=== PATIENT | male | born 1945 | race Caucasian/White ===

== ENCOUNTER 2017-10-27 09:40 | Emergency (ER) | payer MEDICARE, OTHER, SELFPAY ==
[2017-10-27 09:57] VITALS: BP 142/88; PULSE 100; RESP 14; TEMP 36.6; O2SAT 98
[2017-10-27] MEDS: KETOROLAC 60 MG/2 ML VIAL IM (10:25)
[2017-10-27] MEDS: diazePAM 5 MG TABLET PO (10:26)
--- NOTE | 2017-10-27 10:31 | ED_ITS ---
HPI - Neck Pain/Injury General Chief Complaint: Neck Pain/Injury Stated Complaint: NECK OUT OF PLACE PAIN DOWN SHOULDER BLADES Time Seen by Provider: 10/27/17 09:46 Source: patient Mode of arrival: ambulatory Limitations: no limitations History of Present Illness HPI Narrative: Patient is a 72-year-old male who presents with neck pain. Been ongoing for last 2-3 days it started when he woke up mostly on his left side he got numbness and tingling down his left hand. He does have a history of cervical fusion 2,3,4,5 and 6. He denies any recent injury or fall. He has been taking oxycodone for pain which has not been helping. MD complaint: neck pain Related Data Home Medications Medication Instructions Recorded Confirmed albuterol sulfate [Ventolin HFA] 2 puff INH BID #0 05/02/16 10/27/17 fluticasone-salmeterol [Advair 1 puff INH BID #0 05/02/16 10/27/17 Diskus] insulin detemir U-100 [Levemir 50 unit SQ HS #0 05/02/16 10/27/17 FlexTouch U-100 Insuln] calcium carb,cit-mag cit,ox-D3 1 tab PO QDAY #0 05/06/16 10/27/17 multivitamin [Multiple Vitamins] 1 tab PO QDAY #0 05/06/16 10/27/17 omeprazole 40 mg PO QDAY #0 05/06/16 10/27/17 hydrochlorothiazide 25 mg PO QDAY #0 09/29/16 10/27/17 insulin aspart U-100 [Novolog 20 unit SQ TID #0 12/16/16 10/27/17 Flexpen U-100 Insulin] aspirin 1 tab PO DAILY 10/27/17 10/27/17 exenatide microspheres [Bydureon 1 dose SUB-Q QWEEK 10/27/17 10/27/17 BCise] levothyroxine [Synthroid] 1 tab PO DAILY 10/27/17 10/27/17 lisinopril 10 mg PO DAILY 10/27/17 10/27/17 losartan 50 mg PO DAILY 10/27/17 10/27/17 metformin 500 mg PO DAILY 10/27/17 10/27/17 ropinirole 0.25 mg PO BID 10/27/17 10/27/17 sucralfate 1 tab PO QID 10/27/17 10/27/17 Previous Rx's Medication Instructions Recorded oxycodone 5 mg PO Q4HP PRN #90 tab 01/01/17 diazepam [Valium] 5 mg PO Q8H PRN #14 tab 10/27/17 Allergies Allergy/AdvReac Type Severity Reaction Status Date / Time oxytetracycline Allergy Severe SWELLLING, Unverified 07/22/17 12:35 [From TERRAMYCIN] COULDN'T BREATHE, HOSPITALIZED Penicillins [PENICILLINS] Allergy Severe SWELLING, Unverified 07/22/17 12:35 COULDN'T BREATHE, HOSPITALIZED Cholinesterase Allergy Unknown STATES Unverified 07/22/17 12:35 Inhibitor(Carbamate) THAT HE [CHOLINESTERASE HAS A INHIBITOR(CARBAMATE)] CHOLINESTERASE DEFICIENCY oxycodone [OXYCODONE] AdvReac Intermediate Unverified 07/22/17 12:35 Review of Systems Review of Systems GENERAL: Denies chills, fatigue, malaise, fever, sweats, travel HEENT: Neck pain, see HPI RESPIRATORY: Denies dyspnea, cough, wheezing, hemoptysis, sputum. CARDIOVASCULAR: Denies chest pain, palpitations, orthopnea, edema GASTROINTESTINAL: Denies nausea, vomiting, abdominal pain, diarrhea, constipation, melena. : Denies dysuria, frequency, incontinence, hematuria, urinary retention, flank pain. MUSCULOSKELETAL: Denies weakness, joint pain, or bony pain SKIN: No rash, no erythema, no pruritus NEUROLOGIC: Numbness and tingling on left hand he PSYCHIATRIC: No concerning psychosocial issues. 12 point review of systems is negative except for those stated above and HPI PFSH Medical History Cervical vertebral fusion (Acute) Diabetes (Acute) Hypertension (Acute) Hypothyroid (Acute) Surgical History History of lumbar fusion (Acute) History of rotator cuff surgery (Acute) Social History Smoking Status: Former smoker Exam Initial Vital Signs Initial Vital Signs: Vital Signs Temperature 97.9 F 10/27/17 09:57 Pulse Rate 100 H 10/27/17 09:57 Respiratory Rate 14 10/27/17 09:57 Blood Pressure 142/88 H 10/27/17 09:57 Pulse Oximetry 98 10/27/17 09:57 GENERAL: Appears in pain HEENT: Head atraumatic,EOMI, pupils reactive, NECK: No vertebral tenderness no step-offs, significant decreased range of motion. CARDIOVASCULAR: Regular rate and rhythm without murmurs, rubs or gallops. RESPIRATORY: Breath sounds equal bilaterally, no wheezes rales or rhonchi. EXTREMITIES: Normal range of motion, no clubbing or edema. Neurovascularly intact NEUROLOGICAL: Alert and oriented x4.Normal gait and speech. Cranial nerves II through XII grossly intact. Neurovascularly intact, [employer] and game [employer] strength equal bilaterally SKIN: Warm, dry, no laceration, no petechiae, no rashes or lesions. Course Orders Ordered: Discontinued Medications Diazepam (Valium) 5 mg PO NOW ONE Stop: 10/27/17 10:09 Last Admin: 10/27/17 10:26 Dose: 5 mg Ketorolac Tromethamine (Toradol) 60 mg IM NOW ONE Stop: 10/27/17 10:09 Last Admin: 10/27/17 10:25 Dose: 60 mg Vital Signs - 8 hr 10/27/17 11:11 Pulse Rate 83 Blood Pressure [Left Arm] 109/73 Pulse Oximetry 94 MDM - Neck Pain/Injury MDM Narrative Medical decision making narrative: patient is feeling much better. He has no injury no trauma. I think this is musculoskeletal it is worse with movement. I discussed all findings with the patient. Education has been performed regarding treatment plan, diagnosis, warning signs and symptoms and all concerns have been addressed. Verbally agree with and understood all of the above. Discharge Plan Departure Patient Disposition: Home, Self-Care Clinical Impression: Acute cervical myofascial strain Discharge Date/Time: 10/27/17 11:16 Interventions: ED Discharge Assessment Last Done: 10/27/17 11:15 Instructions: DI for Cervical Muscle Strain Activity Restrictions/Additional Instructions: *You have been diagnosed with cervical strain *What to do: Heating pad 30 min at a time, increased movement as tolerated, at this time no imaging required if symptoms persist may require outpatient imaging *Continue to take medications as directed -Valium every 12 hr if needed for muscle spasm -ibuprofen 600 mg every 6-8 hours if needed for [id number] pain *Follow up with your primary care provider in 2-3 days *Return to ER if you should have increasing pain, numbness, tingling, weakness or any new, worsening or concerning symptoms Prescriptions: New diazepam [Valium] 5 mg tablet 5 mg PO Q8H PRN (Reason: muscle spasm) Qty: 14 RF: 0 No Action insulin detemir U-100 [Levemir FlexTouch U-100 Insuln] 100 UNIT/1 ML insulin pen 50 unit SQ HS Qty: 0 RF: 0 fluticasone-salmeterol [Advair Diskus] 250 MCG/50 MCG blister with device 1 puff INH BID Qty: 0 RF: 0 albuterol sulfate [Ventolin HFA] 90 MCG/PUFF HFA aerosol inhaler 2 puff INH BID Qty: 0 RF: 0 omeprazole 20 MG capsule,delayed release(DR/EC) 40 mg PO QDAY Qty: 0 RF: 0 multivitamin [Multiple Vitamins] 1 EACH tablet 1 tab PO QDAY Qty: 0 RF: 0 calcium carb,cit-mag cit,ox-D3 1 tab PO QDAY Qty: 0 RF: 0 hydrochlorothiazide 25 MG tablet 25 mg PO QDAY Qty: 0 RF: 0 insulin aspart U-100 [Novolog Flexpen U-100 Insulin] 100 UNIT/1 ML insulin pen 20 unit SQ TID Qty: 0 RF: 0 oxycodone 5 MG tablet 5 mg PO Q4HP PRNQty: 90 RF: 0 aspirin 81 mg tablet,delayed release (DR/EC) 1 tab PO DAILY RF: 0 lisinopril 10 mg tablet 10 mg PO DAILY RF: 0 levothyroxine [Synthroid] 150 mcg tablet 1 tab PO DAILY RF: 0 exenatide microspheres [Bydureon BCise] 2 mg/0.85 mL auto-injector 1 dose Sub-Q QWEEK RF: 0 losartan 50 mg tablet 50 mg PO DAILY RF: 0 sucralfate 1 gram tablet 1 tab PO QID RF: 0 ropinirole 0.25 mg tablet 0.25 mg PO BID RF: 0 metformin 500 mg tablet extended release 24 hr 500 mg PO DAILY RF: 0 Referrals: Cipriano Hammonds MD [Physician] - Varsha Hassan MD [Primary Care Provider] -
[2017-10-27 11:11] VITALS: BP 109/73; PULSE 83; O2SAT 94
== END 2017-10-27 11:16 | disposition home or self-care (01) ==
PROVIDERS: Emergency Provider Emergency Medicine; Family Provider Internal Medicine; PCP Internal Medicine
DX: S16.1XXA Strain of muscle, fascia and tendon at neck level, initial encounter (principal)
CPT/HCPCS: 96372; 99282; 99283; J1885

== ENCOUNTER → 2018-09-07 10:08 | Outpatient (CLI) | payer MEDICARE, OTHER, SELFPAY ==
--- NOTE | 2018-09-07 | DI.MRI.S_ITS ---
PROCEDURE: MR SHOULDER LT WO CON INDICATIONS: PAIN IN LEFT SHOULDER TECHNIQUE: Noncontrast oblique coronal T2 fast spin echo with fat saturation, oblique sagittal T1 spin echo and T2 fast spin echo with fat saturation, axial T1 spin echo and T2 fast spin echo with fat saturation through the shoulder. COMPARISON: None. FINDINGS: Image quality: Excellent. Rotator cuff: Small full thickness tear involving the junction of the supraspinatus and infraspinatus tendons fluid present measuring 6 mm in AP dimension as seen on image 22 series 10. There is also background supraspinatus and infraspinatus tendinopathy with partial thickness bursal and articular sided tear of the critical zone of both tendons. Mild subscapularis tendinopathy with partial-thickness articular sided tear seen on image 18 series 10. Teres minor appears intact. Bones and bursae: No bone marrow contusions or fractures. Moderate glenohumeral and acromioclavicular joint degeneration. The acromion demonstrates conventional anatomy, without an os acromiale. Trace glenohumeral joint effusion Capsule and soft tissues: Chronic appearing superior and posterior labral tear/degenerative fraying. The long head of the biceps tendon demonstrates normal location and morphology. The rotator interval appears normal, without fibrosis. The coracohumeral ligament is normal in thickness. IMPRESSION: Small full thickness tear at the footprint of the junction of the supraspinatus and infraspinatus tendons. Concomitant supraspinatus and infraspinatus tendinopathy with partial-thickness bursal and articular sided tear of the critical zone. Mild subscapularis tendinopathy with partial-thickness articular sided tear. Superior and posterior labral tear, likely chronic/degenerative fraying which may be age appropriate. Dictated by: Renan Marcelino M.D. on 09/07/2018 at 12:23 Approved by: Renan Marcelino M.D. on 09/07/2018 at 11:24
== END ==
PROVIDERS: Family Provider Orthopaedic Surgery; PCP Internal Medicine; Visit Provider Internal Medicine
DX: M25.512 Pain in left shoulder (principal); M75.112 Incomplete rotator cuff tear or rupture of left shoulder, not specified as traumatic; S43.492A Other sprain of left shoulder joint, initial encounter
CPT/HCPCS: 73221

== ENCOUNTER → 2019-09-09 12:44 | Outpatient (CLI) | payer MEDICARE, OTHER, SELFPAY ==
--- NOTE | 2019-09-09 | DI.MRI.S_ITS ---
PROCEDURE: MR LUMBAR SPINE WO/W CON INDICATIONS: HEAD PAIN, BLADDER INCONTINENCE TECHNIQUE: Noncontrast sagittal T1 spin echo and T2 fast spin echo, sagittal STIR, axial T1 and T2 fast spin echo through the lumbar spine. In cases with scoliosis, additional coronal T2 fast spin echo may be performed. After the administration of contrast, sagittal and axial T1 spin echo with fat saturation through the lumbar spine. COMPARISON: [facility], , L-SPINE WITHOUT CONTRAST, 05/05/2016, 6:56. [facility] [place], CR, XR LUMBAR SPINE 2 OR 3 VIEWS, 02/04/2018, 13:00. [facility] [place], [place], XR LUMBAR SPINE 2 OR 3 VIEWS, 07/17/2017, 11:14. FINDINGS: Image quality: Excellent. Alignment and curvature: There is normal bony alignment. Bones: Postsurgical changes compatible with L4-S1 PLIF. Marrow is of normal overall signal. No acute vertebral body compression fractures. No suspicious marrow enhancement. Spinal cord: Conus medullaris terminates at the T12-L1 disc level. Visualized spinal cord demonstrates normal signal, without suspicious enhancement. Paraspinous soft tissues: No paravertebral masses or abnormal enhancement. L1-L2: Normal appearance. L2-L3: Normal appearance. L3-L4: Loss of disc signal. Moderate, diffuse disc bulge. Moderate facet and moderate ligamentum flavum hypertrophy. Severe narrowing of the central canal with compression of the nerve roots of the cauda equina. Moderate right and mild left neural foraminal narrowing. Fissure noted in the left subarticular annulus. L4-L5: Status post fusion. Mild bilateral facet hypertrophy. No central stenosis. Mild bilateral neural foraminal narrowing. No neural compression. L5-S1: Status post fusion. Mild to moderate bilateral facet hypertrophy. No central stenosis. Moderate bilateral neural foraminal narrowing. No neural compression. IMPRESSION: 1. Status post L4-S1 PLIF. 2. Multilevel degenerative disease 3. Multilevel facet arthropathy. 4. Severe L3-L4 central canal stenosis with compression of the nerve roots of the cauda equina. 5. No significant neural foraminal narrowing. 6. No suspicious postcontrast enhancement. Dictated by: Charmaine Zheng MD, PhD on 09/09/2019 at 17:10 Approved by: Charmaine Zheng MD, PhD on 09/09/2019 at 17:15
--- NOTE | 2019-09-09 | DI.MRI.S_ITS ---
PROCEDURE: MR THORACIC SPINE WO CON INDICATIONS: HEAD PAIN, BLADDER INCONTINENCE TECHNIQUE: Noncontrast sagittal T1 spine echo and T2 fast spin echo, sagittal STIR, axial T1 and T2 fast spin echo through the thoracic spine. COMPARISON: None. FINDINGS: Image quality: Excellent. Alignment and Curvature: There is normal bony alignment. Bone Marrow: Marrow is of normal overall signal. No acute vertebral body compression fractures. Spinal Cord: Visualized spinal cord is normal in size and signal. Along the low cervical and thoracic spine there is no area of cord compression or disc herniation. Note is made of a mild degree of degenerative disc disease with disc height reduction and desiccation over the lower third of the thoracic spine, best seen at T9-T10 and T10-T11 but without significant spinal or foraminal stenosis. Paraspinous Soft Tissues: No inflammation or neoplasm found. Miscellaneous: On axial images, central canal and foramina appear widely patent at all scanned levels. IMPRESSION: Mild degenerative disc disease and facet osteoarthritis along the thoracic spine, visualize low cervical spinal cord and thoracic cord show no sign of intrinsic lesion. No disc herniation is found. Source of current symptomatology is not identified. Dictated by: Kd Mariee M.D. on 09/09/2019 at 14:55 Approved by: Kd Mariee M.D. on 09/09/2019 at 15:00
--- NOTE | 2019-09-09 | DI.MRI.S_ITS ---
PROCEDURE: MR HEAD/BRAIN WO/W CON INDICATIONS: HEAD PAIN,URINARY INCONTINENCE TECHNIQUE: Noncontrast axial T1 spin echo, axial T2 fast spin echo, sagittal and axial FLAIR, coronal T2 fast spin echo, axial gradient echo, axial diffusion and ADC through the brain. After the administration of contrast, axial and coronal 3D VIBE or T1 spin echo with fat saturation through the brain. COMPARISON: [facility], MR, BRAIN W&WO CONTRAST, 07/01/2016, 7:19. FINDINGS: Image quality: Excellent. CSF Spaces: Basal cisterns are patent. No extra-axial fluid collections. Ventricles are normal in size and shape. Brain: No midline shift. No intracranial bleeds or masses. No abnormal intracranial enhancement. The brainstem appears normal. Diffusion-weighted images demonstrate no acute ischemic insults. No chronic ischemic insults. Normal intravascular flow voids are present. Skull and face: Calvarial marrow is normal in signal. Orbits appear normal. Sinuses: Sinuses and mastoids appear clear. IMPRESSION: Moderate microvascular atherosclerotic changes in the deep white matter of each hemisphere, without evidence of source of new headache or urinary incontinence. Hydrocephalus is not seen. The study appears near equivalent to that present on MR scanning 07/01/16. Dictated by: Kd Mariee M.D. on 09/09/2019 at 14:53 Approved by: Kd Mariee M.D. on 09/09/2019 at 14:54
== END ==
PROVIDERS: Family Provider Orthopaedic Surgery; PCP Internal Medicine; Referring Provider Internal Medicine; Visit Provider Internal Medicine
DX: R51 Headache (principal); R32 Unspecified urinary incontinence; M51.34 Other intervertebral disc degeneration, thoracic region; M47.814 Spondylosis without myelopathy or radiculopathy, thoracic region; M51.36 Other intervertebral disc degeneration, lumbar region; M47.816 Spondylosis without myelopathy or radiculopathy, lumbar region; M47.817 Spondylosis without myelopathy or radiculopathy, lumbosacral region; M48.061 Spinal stenosis, lumbar region without neurogenic claudication; Z98.1 Arthrodesis status
CPT/HCPCS: 70553; 72146; 72158

== ENCOUNTER 2019-09-11 13:26 | Observation (INO) | payer MEDICARE, OTHER, SELFPAY ==
--- NOTE | 2019-09-11 | DI.ECHO.S_ITS ---
[facility] +---------+ : : [address] : : : : [id number] : : : : Phone: [phone]+ Echocardiogram Report + + :Name: DAWOOD ARRINGTON Study Date: 09/12/2019 Height: 71 in : :[facility] Weight: 183 lb : : Gender: Male BSA: 2.0 m2 : :: 1945 Age: 74 yrs BP: 145/79 mmHg: :Reason For Study: R/O Embolic focus : :Ordering Physician: Deepthi : :Hospitalist Performed By: Danni Burgess : :Referring: MALIHA TRAN : + + Interpretation Summary Normal left ventricle size with ejection fraction 60-65%. Mild aortic valve sclerosis. Mildly enlarged ascending aorta. Procedure: A two-dimensional transthoracic echocardiogram with color flow and Doppler was performed. The study quality was technically adequate. There is no prior echocardiogram noted for this patient. The patient was in normal sinus rhythm during the exam. The heart rate ranged between 68-74 bpm during the study. Left Ventricle: The left ventricle is normal in size and wall thickness. The ejection fraction is estimated to be 60-65%. Septal motion is consistent with conduction abnormality. There are no other obvious focal wall motion abnormalities. Right Ventricle: The right ventricle is normal in size and function. Atria: Both atria are normal in size. There is no Doppler evidence for an interatrial shunt. Mitral Valve: The mitral valve is normal in structure and function. There is trace mitral regurgitation. Aortic Valve: The aortic valve is trileaflet. The aortic valve opens well. There is mild aortic valve sclerosis. There is no aortic valve stenosis. No aortic regurgitation is present. Tricuspid Valve: The tricuspid valve is normal in structure and function. Pulmonary artery pressures cannot be estimated because of the lack of a measurable TR jet velocity but the IVC suggests a CVP of around 3 mmHg. There is trace tricuspid regurgitation. Pulmonic Valve: The pulmonic valve is normal in structure and function. There is trace pulmonic regurgitation. Great Vessels: The aortic root is normal size. The ascending aorta is mildly enlarged. The IVC is of normal diameter and collapses greater than 50% with a sniff. This suggests a low right atrial pressure of 3 mm Hg. Pericardium/ Pleura There is no pericardial effusion. There is no pleural effusion. MMode/2D Measurements & Calculations LVIDd: 4.8 cm LVOT diam: 2.2 cm LVIDs: 3.1 cm Ao root diam: 3.3 cm FS: 35.5 % asc Aorta Diam: 3.5 cm EPSS: 1.4 cm IVSd: 1.0 cm LVPWd: 0.73 cm LV bradford. diameter/BSA (cm/m^2): 2.4 LV sys. diameter/BSA (cm/m^2): 1.5 LA A2 area: 19.5 cm2 RA long axis: 4.6 cm LA A4 area: 15.4 cm2 RA area: 13.7 cm2 LA length (vol): 4.9 cm RA vol: 34.9 ml LA vol: 52.5 ml RA : 17.2 ml/m2 LA vol index: 25.8 ml/m2 IVC diam: 2.0 cm RVD1 (basal): 3.5 cm TAPSE: 1.8 cm Doppler Measurements & Calculations Ao V2 max: 154.8 cm/sec LVOT Max Kraig: 121.1 cm/sec Ao V2 mean: 97.5 cm/sec LV V1 max P.9 mmHg Ao max P.6 mmHg LV V1 VTI: 21.7 cm Ao mean P.4 mmHg ETTA(I,D): 2.9 cm2 Ao V2 VTI: 28.7 cm ETTA(V,D): 3.0 cm2 sev ratio: 0.76 ETTA indexed to BSA (cm^2/m^2): 1.4 MV E max kraig: 77.2 cm/sec PA V2 max: 92.0 cm/sec MV A max kraig: 122.3 cm/sec PA V2 mean: 61.4 cm/sec MV E/A: 0.63 PA mean P.8 mmHg Med Peak E' Kraig: 5.8 cm/sec E/E' med: 13.4 Lat Peak E' Kraig: 7.9 cm/sec E/E' lat: 9.8 E/e' average: 11.6 MV dec time: 0.18 sec SV(LVOT): 83.6 ml Electronically signed by: Radha Fraser on Reading Physician:09/12/2019 05:55 PM
--- NOTE | 2019-09-11 13:39 | DI.CT.S_ITS ---
PROCEDURE: CT HEAD/BRAIN WO CON INDICATIONS: dizziness, slurred speech x2 days TECHNIQUE: Noncontrast 4.5 mm thick angled axial sections acquired from the foramen magnum to the vertex, with coronal and sagittal reformats. For radiation dose reduction, the following was used: automated exposure control, adjustment of mA and/or kV according to patient size. COMPARISON: [facility], MR, MR HEAD/BRAIN WO/W CON, 09/09/2019, 13:25. FINDINGS: Image quality: Excellent. CSF spaces: Basal cisterns are patent. No extra-axial fluid collections. The ventricles are symmetric in size and shape. Brain: No intracranial bleeds or masses. There is cerebral volume loss for age, with resultant ventricular and sulcal prominence. There are mild periventricular and deep white matter chronic small vessel ischemic changes. There is intracranial internal carotid artery atherosclerosis. Skull and face: Calvarium and visualized facial bones appear intact, without suspicious lesions. Sinuses: Visualized sinuses and mastoids are clear. IMPRESSION: 1. No CT evidence of acute process. 2. Mild microvascular ischemic changes. Dictated by: Nuzhat Dave M.D. on 09/11/2019 at 14:44 Approved by: Nuzhat Dave M.D. on 09/11/2019 at 14:48
[2019-09-11 13:42] VITALS: BP 151/79; PULSE 71; RESP 16; TEMP 36.7; O2SAT 97; BMI 25.5
--- NOTE | 2019-09-11 13:47 | PC.NURSE ---
Patient has been having dizziness for couple weeks, seen here for MRI. Patient reports labile blood sugars and was taken off insulin by PCP. Patient reports patient has been having intermittent episodes of difficulty speaking. patient was speaking normally this morning and went out for his normal walk, at coffee stand he noticed he was having a hard time speaking. Arrives to ER with pressured speech. States he knows what he wants to say but has a hard time getting it out.
[2019-09-11 13:59] LABS: Add Manual Diff / Slide Review NO; Basophils Absolute Auto 100 /uL (0-100); Basophils Percent Auto 0.7 % (0-2); Eosinophils Absolute Auto 100 /uL (0-450); Eosinophils Percent Auto 1.4 % (2-4); Lymphocytes Absolute Auto 2100 /uL (1100-4500); Lymphocytes Percent Auto 20.3 % (25-40); Mean Corpuscular HGB Conc 34.2 % (30-36); Mean Corpuscular Hemoglobin 30.9 PG (26-34); Mean Corpuscular Volume 90.4 fL (80-100); Monocytes Absolute Auto 700 /uL (0-900); Monocytes Percent Auto 6.6 % (3-14); Neutrophils Absolute Auto 7300 /uL (1500-7000); Platelet Count 262 X10^3/uL (150-400); Red Cell Distribution Width 14.6 % (11.6-14.8); White Blood Cell Count 10.2 X10^3/uL (4.5-11.0)
[2019-09-11 14:08] LABS: Prothrombin Time 11.2 SECONDS (10.1-12.7)
[2019-09-11 14:11] LABS: BUN Creatinine Ratio 27.7 (6-22); Blood Urea Nitrogen 26 mg/dL (9-20); Calcium 10.4 mg/dL (8.4-10.2); Carbon Dioxide 30 mmol/L (22-32); Chloride 99 mmol/L (98-107); Estimated Glomerular Filt Rate > 60.0 mL/min (>60); Glucose 248 mg/dL (80-110); HEMOLYSIS < 15 (0-50); PTT Partial Thromboplastin Tim 30 SECONDS (26.4-36.2); Potassium 3.8 mmol/L (3.4-5.1); Sodium 138 mmol/L (137-145)
--- NOTE | 2019-09-11 14:34 | ED_ITS ---
HPI - Neuro Symptoms/Deficit General Chief Complaint: Neuro Symptoms/Deficit Stated Complaint: slurring speech/ disorieted/ problems w/ diabetes Time Seen by Provider: 09/11/19 13:26 Source: patient and family Mode of arrival: Ambulatory Limitations: no limitations History of Present Illness HPI Narrative: Daily smoker with history of hypertension, diabetes, hyperlipidemia, hypothyroid presents with a chief complaint of ongoing episodes of dizziness for weeks to months and difficulty with speech including slurring and otherwise trouble communicating for the past 2 days. He denies any focal neurologic symptoms otherwise such as blurred vision, extremity weakness, numbness or tingling. He denies any recent injury or trauma. He has been having episodes with difficulty controlling his glucose and as a result his insulin and other hyperglycemics have been cut out and he is expected to follow with his primary care provider in a few days. He recently had an MRI of his head for dizziness On Anticoagulants: No Related Data Home Medications Medication Instructions Recorded Confirmed albuterol sulfate [Ventolin HFA] 2 puff INH BID #0 05/02/16 09/11/19 fluticasone propion-salmeterol 1 puff INH BID #0 05/02/16 10/27/17 [Advair Diskus] insulin detemir U-100 [Levemir 50 unit SQ HS #0 05/02/16 10/27/17 FlexTouch U-100 Insuln] calcium carb,cit-mag cit,ox-D3 1 tab PO QDAY #0 05/06/16 10/27/17 omeprazole 40 mg PO QDAY #0 05/06/16 10/27/17 hydrochlorothiazide 25 mg PO QDAY #0 09/29/16 10/27/17 insulin aspart U-100 [Novolog 20 unit SQ TID #0 12/16/16 10/27/17 Flexpen U-100 Insulin] exenatide microspheres [Bydureon 1 dose SUB-Q QWEEK 10/27/17 10/27/17 BCise] levothyroxine [Synthroid] 1 tab PO DAILY 10/27/17 10/27/17 losartan 50 mg PO DAILY 10/27/17 10/27/17 metformin 500 mg PO DAILY 10/27/17 10/27/17 ropinirole 0.25 mg PO BID 10/27/17 10/27/17 sucralfate 1 tab PO QID 10/27/17 10/27/17 Allergies Allergy/AdvReac Type Severity Reaction Status Date / Time oxytetracycline Allergy Severe SWELLLING, Unverified 07/22/17 12:35 [From TERRAMYCIN] COULDN'T BREATHE, HOSPITALIZED Penicillins [PENICILLINS] Allergy Severe SWELLING, Unverified 07/22/17 12:35 COULDN'T BREATHE, HOSPITALIZED Cholinesterase Allergy Unknown STATES Unverified 07/22/17 12:35 Inhibitor(Carbamate) THAT HE [CHOLINESTERASE HAS A INHIBITOR(CARBAMATE)] CHOLINESTERASE DEFICIENCY oxycodone [OXYCODONE] AdvReac Intermediate Unverified 07/22/17 12:35 Review of Systems Constitutional Constitutional: Denies chills, Denies fatigue, Denies fever(s), Denies frequent falls, Denies lethargy and Reports weakness Eyes Eyes: Denies change in vision, Denies eye discharge, Denies irritation and Denies loss of vision ENT Ears, Nose, Mouth, and Throat: Denies change in voice, Denies dizziness, Denies neck pain, Denies sore throat and Denies throat swelling Cardiovascular Cardiovascular: Denies chest pain, Denies irregular heart rhythm, Denies lightheadedness, Denies palpitations, Denies dyspnea, Denies dyspnea on exertion and Denies orthopnea Respiratory Respiratory: Denies cough, Denies dyspnea, Denies dyspnea on exertion and Denies wheezing Gastrointestinal Gastrointestinal: Denies abdominal pain, Denies change in bowel habits, Denies diarrhea, Denies nausea and Denies vomiting Genitourinary Genitourinary: Denies hematuria, Denies flank pain, Reports urinary incontinence and Denies urinary urgency Musculoskeletal Musculoskeletal: Reports abnormal gait, Denies back pain, Denies muscle weakness, Denies neck pain, Denies numbness and Denies tingling Integumentary/Breasts Skin/Breast: Denies pruritus, Denies erythema, Denies rash and Denies wounds Neurologic Neurologic: Reports abnormal gait, Denies behavioral changes, Denies confusion, Denies dizziness, Denies frequent falls, Denies loss of vision, Denies numbness, Denies tingling and Reports weakness Psychiatric Psychiatric: Denies anxiety, Denies behavioral changes, Denies confusion, Denies depression, Denies homicidal ideation and Denies suicidal ideation Endocrine Endocrine: Denies fatigue, Denies flushing and Denies palpitations Hematologic/Lymphatic Hematologic/Lymphatic: Denies easy bruising Allergic/Immunologic Allergic/Immunologic: Denies urticaria, Denies throat swelling and Denies wheezing Patient History Medical History (Updated 09/11/19 @ 16:24 by Mohan Scott DO) Cervical vertebral fusion (Acute) Diabetes (Acute) Hypertension (Acute) Hypothyroid (Acute) Surgical History (Updated 10/27/17 @ 18:36 by Sharla Howard DO) History of lumbar fusion (Acute) History of rotator cuff surgery (Acute) Social History Smoking Status: Current every day smoker Smoking Status: Current every day smoker tobacco type: cigarettes Substance Use Type: does not use Exam Narrative Exam Narrative: GENERAL: [74] year old patient appears stated age. Well- nourished, well-developed patient, in mild distress. With stuttering, pressured speech HEAD: Atraumatic. Normocephalic. EYES: Pupils equal round and reactive. Extraocular motions intact. No scleral icterus. No injection or drainage. ENT: Nose without bleeding, purulent drainage. Throat without erythema, tonsillar hypertrophy or exudate. Airway patent. NECK: Trachea midline. Non tender CARDIOVASCULAR: Regular rate and rhythm without murmurs, gallops, or rubs. RESPIRATORY: Clear to auscultation. Breath sounds equal bilaterally. No wheezes, rales, or rhonchi. GASTROINTESTINAL: Abdomen soft, non-tender, nondistended. EXTREMITIES: No edema or joint tenderness. RECTAL: decreased rectal tone, decreased groin sensation BACK: Nontender without deformity or crepitance. No flank tenderness. NEURO: AOx3. B/L LE with severely decreased reflexes. 4/5 strength B/L SKIN: No rash or erythema of visible areas Initial Vital Signs Initial Vital Signs: Vital Signs Temperature 98.1 F 09/11/19 13:42 Pulse Rate 71 09/11/19 13:42 Respiratory Rate 16 09/11/19 13:42 Blood Pressure 151/79 H 09/11/19 13:42 Pulse Oximetry 97 09/11/19 13:42 Scores NIH Stroke Scale Level of Conciousness: Alert, keenly responsive Ask month/age: Answers both questions correctly. Open/close eyes, close hand: Performs both tasks correctly Best gaze horizontal: Normal Visual lara: No visual loss Facial palsy: Normal symetrical movement Left arm drift: No drift for full 10 sec Right arm drift: No drift for full 10 sec Left leg drift: Drifts down, not to bed Right leg drift: Drifts down, not to bed Limb ataxia: Absent Sensory on face/arms/legs: Mild to moderate sensory loss, can tell touch Best language: Mild to moderate, slurs some words Dysarthria: Normal Extinction or inattention: No abnormality Total NIH Stroke scale score: 4 Course Course Course Narrative: MRI was not only for dizziness but also headaches and leg weakness as well as trouble controlling his bladder for the past month or so Orders Ordered: ED Orders 09/11/19 13:30 Basic Metabolic Panel Stat Complete Blood Count AUTO DIFF Stat Partial Thromboplastin Time Stat Prothrombin Time INR Stat 09/11/19 13:39 CT head/brain wo con Stat 09/11/19 13:40 Urine Drug Screen, Rapid Stat EKG-12 Lead Stat 09/11/19 15:55 Urine Microscopic Stat Acetaminophen (Tylenol) 650 mg PO Q6HR PRN PRN Reason: Fever Atorvastatin Calcium (Lipitor) 80 mg PO BEDTIME PATIENCE Clopidogrel Bisulfate (Plavix) 75 mg PO DAILY PATIENCE Sodium Chloride (Normal Saline 0.9%) 1,000 mls @ 150 mls/hr IV CONT PATIENCE Last Admin: 09/11/19 16:02 Dose: 150 mls/hr Documented by: KENISHA Insulin Glargine (Lantus Solostar (Pen)) 40 unit SUBCUT BEDTIME PATIENCE Naloxone HCl (Narcan) 0.2 mg IV Q2MIN PRN PRN Reason: Opiate Reversal Consultations Consultation #1: discussion with Stroke at [facility]. Interesting presentation, outside therapeutic window. Recommends admission with classic stroke work up. LE symptoms likely unrelated Consultation #2: call to Dr. Sanchez (Ortho - spine). Not true cauda equina, not emergent surgical candidate. Recommends steroids and likely future laminectomy. Happy to see patient if consult desired Consultation #3: hospitalist happy to accept Vital Signs Vital signs: Vital Signs - 8 hr 09/11/19 13:42 09/11/19 16:00 09/11/19 16:08 Temperature 98.1 F Pulse Rate 71 70 Respiratory Rate 16 24 Blood Pressure 151/79 H Blood Pressure [Right Arm] 124/68 Pulse Oximetry 97 95 MDM - Neuro Symptoms/Deficit Lab Data Result diagrams: 09/11/19 13:30 09/11/19 13:30 Labs: Lab Results 09/11/19 09/11/19 09/11/19 Range/Units 13:30 13:30 13:30 WBC 10.2 (4.5-11.0) X10^3/uL RBC 5.20 (4.5-5.9) X10^6/uL Hgb 16.0 (13.5-17.5) g/dL Hct 47.0 (41-53) % MCV 90.4 (80-100) fL MCH 30.9 (26-34) PG MCHC 34.2 (30-36) % RDW 14.6 (11.6-14.8) % Plt Count 262 (150-400) X10^3/uL Neut % (Auto) 71.0 (50-75) % Lymph % (Auto) 20.3 L (25-40) % [place] % (Auto) 6.6 (3-14) % Eos % (Auto) 1.4 L (2-4) % Baso % (Auto) 0.7 (0-2) % Neut # (Auto) 7300 H (2698-0449) /uL Lymph # (Auto) 2100 (2963-3674) /uL [place] # (Auto) 700 (0-900) /uL Eos # (Auto) 100 (0-450) /uL Baso # (Auto) 100 (0-100) /uL PT 11.2 (10.1-12.7) SECONDS INR 1.0 (0.9-1.3) APTT 30 (26.4-36.2) SECONDS Sodium 138 (137-145) mmol/L Potassium 3.8 (3.4-5.1) mmol/L Chloride 99 (98-107) mmol/L Carbon Dioxide 30 (22-32) mmol/L BUN 26 H (9-20) mg/dL Creatinine 0.94 (0.66-1.25) mg/dL Estimated GFR > 60.0 (>60) mL/min BUN/Creatinine Ratio 27.7 H (6-22) Glucose 248 H (80-110) mg/dL Calcium 10.4 H (8.4-10.2) mg/dL Urine RBC (0-5/HPF) Urine WBC (0-5/HPF) Ur Squamous Epith Cells (0-5/HPF) Urine Bacteria (None) Ur Culture Indicated? 09/11/19 Range/Units 15:55 WBC (4.5-11.0) X10^3/uL RBC (4.5-5.9) X10^6/uL Hgb (13.5-17.5) g/dL Hct (41-53) % MCV (80-100) fL MCH (26-34) PG MCHC (30-36) % RDW (11.6-14.8) % Plt Count (150-400) X10^3/uL Neut % (Auto) (50-75) % Lymph % (Auto) (25-40) % [place] % (Auto) (3-14) % Eos % (Auto) (2-4) % Baso % (Auto) (0-2) % Neut # (Auto) (8675-3829) /uL Lymph # (Auto) (9255-6959) /uL [place] # (Auto) (0-900) /uL Eos # (Auto) (0-450) /uL Baso # (Auto) (0-100) /uL PT (10.1-12.7) SECONDS INR (0.9-1.3) APTT (26.4-36.2) SECONDS Sodium (137-145) mmol/L Potassium (3.4-5.1) mmol/L Chloride (98-107) mmol/L Carbon Dioxide (22-32) mmol/L BUN (9-20) mg/dL Creatinine (0.66-1.25) mg/dL Estimated GFR (>60) mL/min BUN/Creatinine Ratio (6-22) Glucose (80-110) mg/dL Calcium (8.4-10.2) mg/dL Urine RBC 0-1/hpf (0-5/HPF) Urine WBC 0-1/hpf (0-5/HPF) Ur Squamous Epith Cells 0-1 /hpf (0-5/HPF) Urine Bacteria None seen (None) Ur Culture Indicated? Cult not indicated Point of Care Testing Glucose POC 218 Urine Dip Bedside Urine Glucose 100 mg/dl Bedside Urine Bilirubin - Negative Bedside Urine Ketone - Negative Urine Specific [place] 1.020 Bedside Urine Occult Blood - Negative Bedside Urine pH 6.0 Bedside Urine Protein - Negative Bedside Urine Urobilinogen +/- 1mg Bedside Urine Nitrite - Negative Bedside Urine Leukocytes - Negative Esterase Imaging Data MRI of brain / T spine / L spine: Radiologist's Impression: Chart [facility] Diagn[employer] DATE TYPE STATUS AUTHOR Hx 09/11/19 13:39 09/09/19 00:00 Kd Mariee 09/09/19 00:00 Charmaine Zheng 09/09/19 00:00 Kd Mariee 09/07/18 00:00 RylandRenan 08/14/17 00:00 John Mathews Rodney A 74, M1 REG ER, Main ED R08 180.34cm 83.007kg BMI: 25.5kg/m? Neuro Symptoms/Deficit Search Chart No Data to Display SWELLLING, COULDN'T BREATHE, HOSPITALIZED SWELLING, COULDN'T BREATHE, HOSPITALIZED STATES THAT HE HAS A CHOLINESTERASE DEFICIENCY ONSET Today 13:42 Mak Ruano 74 M [address] [place] [address] Magnetic Resonance Report Signed Patient: Mak Ruano AMR#: [id number] : 1945cct:[id number] Age/Sex: 74 / MDate of Service: 09/09/19 Loc: MRI Accession Number: [id number] Procedure: MR head/brain wo/w con Ordering Provider: Dorothy Jackson PROCEDURE: MR HEAD/BRAIN WO/W CON INDICATIONS: HEAD PAIN,URINARY INCONTINENCE TECHNIQUE: Noncontrast axial T1 spin echo, axial T2 fast spin echo, sagittal and axial FLAIR, coronal T2 fast spin echo, axial gradient echo, axial diffusion and ADC through the brain. After the administration of contrast, axial and coronal 3D VIBE or T1 spin echo with fat saturation through the brain. COMPARISON: [facility], MR, BRAIN W&WO CONTRAST, 07/01/2016, 7:19. FINDINGS: Image quality: Excellent. CSF Spaces: Basal cisterns are patent. No extra-axial fluid collections. Ventricles are normal in size and shape. Brain: No midline shift. No intracranial bleeds or masses. No abnormal intracranial enhancement. The brainstem appears normal. Diffusion-weighted images demonstrate no acute ischemic insults. No chronic ischemic insults. Normal intravascular flow voids are present. Skull and face: Calvarial marrow is normal in signal. Orbits appear normal. Sinuses: Sinuses and mastoids appear clear. IMPRESSION: Moderate microvascular atherosclerotic changes in the deep white matter of each hemisphere, without evidence of source of new headache or urinary incontinence. Hydrocephalus is not seen. The study appears near equivalent to that present on MR scanning 07/01/16. Dictated by: Kd Mariee M.D. on 09/09/2019 at 14:53 Approved by: Kd Mariee M.D. on 09/09/2019 at 14:54 Chart Viewer Diagnostics DATE TYPE STATUS AUTHOR Hx 09/11/19 13:39 09/09/19 00:00 Kd Mariee 09/09/19 00:00 Charmaine Zheng 09/09/19 00:00 Kd Mariee 09/07/18 00:00 Renan Marcelino 08/14/17 00:00 MathewsJohn Rodney A 74, [facility] ER, Main ED R08 180.34cm 83.007kg BMI: 25.5kg/m? Neuro Symptoms/Deficit Search Chart No Data to Display SWELLLING, COULDN'T BREATHE, HOSPITALIZED SWELLING, COULDN'T BREATHE, HOSPITALIZED STATES THAT HE HAS A CHOLINESTERASE DEFICIENCY ONSET Today 13:42 Mak Ruano 74 M [address] [place] [address] Magnetic Resonance Report Signed Patient: Mak Ruano AMR#: [id number] : 1945cct:[id number] Age/Sex: 74 / MDate of Service: 09/09/19 Loc: MRI Accession Number: [id number] Procedure: MR thoracic spine wo con Ordering Provider: Dorothy Jackson PROCEDURE: MR THORACIC SPINE WO CON INDICATIONS: HEAD PAIN, BLADDER INCONTINENCE TECHNIQUE: Noncontrast sagittal T1 spine echo and T2 fast spin echo, sagittal STIR, axial T1 and T2 fast spin echo through the thoracic spine. COMPARISON: None. FINDINGS: Image quality: Excellent. Alignment and Curvature: There is normal bony alignment. Bone Marrow: Marrow is of normal overall signal. No acute vertebral body compression fractures. Spinal Cord: Visualized spinal cord is normal in size and signal. Along the low cervical and thoracic spine there is no area of cord compression or disc herniation. Note is made of a mild degree of degenerative disc disease with disc height reduction and desiccation over the lower third of the thoracic spine, best seen at T9-T10 and T10-T11 but without significant spinal or foraminal stenosis. Paraspinous Soft Tissues: No inflammation or neoplasm found. Miscellaneous: On axial images, central canal and foramina appear widely patent at all scanned levels. IMPRESSION: Mild degenerative disc disease and facet osteoarthritis along the thoracic spine, visualize low cervical spinal cord and thoracic cord show no sign of intrinsic lesion. No disc herniation is found. Source of current symptomatology is not identified. Dictated by: Kd Mariee M.D. on 09/09/2019 at 14:55 Approved by: Kd Mariee M.D. on 09/09/2019 at 15:[address] [address] Magnetic Resonance Report Signed Patient: Mak Ruano AMR#: [id number] : 1945cct:[id number] Age/Sex: 74 / MDate of Service: 09/09/19 Loc: MRI Accession Number: [id number] Procedure: MR lumbar spine wo/w con Ordering Provider: Dorothy Jackson PROCEDURE: MR LUMBAR SPINE WO/W CON INDICATIONS: HEAD PAIN, BLADDER INCONTINENCE TECHNIQUE: Noncontrast sagittal T1 spin echo and T2 fast spin echo, sagittal STIR, axial T1 and T2 fast spin echo through the lumbar spine. In cases with scoliosis, additional coronal T2 fast spin echo may be performed. After the administration of contrast, sagittal and axial T1 spin echo with fat saturation through the lumbar spine. COMPARISON: [facility], , L-SPINE WITHOUT CONTRAST, 05/05/2016, 6:56. [facility], CR, XR LUMBAR SPINE 2 OR 3 VIEWS, 02/04/2018, 13:00. [facility], CR, XR LUMBAR SPINE 2 OR 3 VIEWS, 07/17/2017, 11:14. FINDINGS: Image quality: Excellent. Alignment and curvature: There is normal bony alignment. Bones: Postsurgical changes compatible with L4-S1 PLIF. Marrow is of normal overall signal. No acute vertebral body compression fractures. No suspicious marrow enhancement. Spinal cord: Conus medullaris terminates at the T12-L1 disc level. Visualized spinal cord demonstrates normal signal, without suspicious enhancement. Paraspinous soft tissues: No paravertebral masses or abnormal enhancement. L1-L2: Normal appearance. L2-L3: Normal appearance. L3-L4: Loss of disc signal. Moderate, diffuse disc bulge. Moderate facet and moderate ligamentum flavum hypertrophy. Severe narrowing of the central canal with compression of the nerve roots of the cauda equina. Moderate right and mild left neural foraminal narrowing. Fissure noted in the left subarticular annulus. L4-L5: Status post fusion. Mild bilateral facet hypertrophy. No central stenosis. Mild bilateral neural foraminal narrowing. No neural compression. L5-S1: Status post fusion. Mild to moderate bilateral facet hypertrophy. No central stenosis. Moderate bilateral neural foraminal narrowing. No neural compression. IMPRESSION: 1. Status post L4-S1 PLIF. 2. Multilevel degenerative disease 3. Multilevel facet arthropathy. 4. Severe L3-L4 central canal stenosis with compression of the nerve roots of the cauda equina. 5. No significant neural foraminal narrowing. 6. No suspicious postcontrast enhancement. Dictated by: Charmaine Zheng MD, PhD on 09/09/2019 at 17:10 Approved by: Charmaine Zheng MD, PhD on 09/09/2019 at 17:15 Discharge Plan Departure Patient Disposition: Admitted as Observation Clinical Impression: Cerebrovascular accident Qualifiers: CVA mechanism: unspecified Qualified Code(s): I63.9 - Cerebral infarction, unspecified Admit Date/Time: 09/11/19 17:47 Admit Provider: Honey Melgoza
[2019-09-11 16:00] VITALS: PULSE 70; RESP 24; O2SAT 95
[2019-09-11] MEDS: SODIUM CHLORIDE 0.9% 1,000 ML 150 ML IV (16:02)
[2019-09-11 16:08] VITALS: BP 124/68
[2019-09-11 16:08] LABS: Bacteria Urine None Seen
[2019-09-11 16:22] LABS: Culture Indicated Urine Cult Not Indicated; RBC Urine 0-1/HPF (0-5/HPF); Squamous Epithelial Cell Urine 0-1 /HPF (0-5/HPF); WBC Urine 0-1/HPF (0-5/HPF)
--- NOTE | 2019-09-11 17:50 | DI.MRI.S_ITS ---
PROCEDURE: MR STROKE Pre- and post-contrast brain MRI, non-contrast brain MR angiogram, pre- and postcontrast neck MR angiogram INDICATIONS: r/o stroke TECHNIQUE: Brain: Noncontrast axial T1 spin echo, axial T2 fast spin echo, sagittal and axial FLAIR, coronal T2 fast spin echo, axial gradient echo, axial diffusion and ADC through the brain. After the administration of contrast, axial 3D VIBE of the cranial vasculature and brain. Brain MRA: Non-contrast 3-D time of flight MR angiogram, with multiple gyuoztz-mtlyhlarf-apgtlvbihq (MIP) reformats performed. Neck MRA: Axial and sagittal TruFISP through the neck. Coronal dynamic MR angiogram during administration of contrast in the arterial and venous phases, with 3-dimenstional zmlxndi-cxhakvver-jicxidhnmf (MIP) reformats constructed from subtraction images. COMPARISON: [facility], MR, ANGIO HEAD WITHOUT CONTRAST, 07/01/2016, 7:09. [facility], MR, BRAIN W&WO CONTRAST, 07/01/2016, 7:19. [facility], CT, CT HEAD/BRAIN WO CON, 09/11/2019, 13:47. FINDINGS: Image quality: Excellent. BRAIN: CSF spaces: Ventricles are normal in size and shape. Basal cisterns are patent. No extra-axial fluid collections. Brain: No intracranial bleeds or mass effects. Moderate diffuse cerebral volume loss. Mild to moderate degree of patchy high FLAIR signal within the periventricular and subcortical white matter, which has progressed compared to prior examination. [place]-white matter interface is normal. Diffusion weighted images show no acute ischemic insults. Brainstem appears normal. Normal intravascular flow voids are present. No abnormal intracranial enhancement. Skull and face: Calvarial marrow signal is normal. Orbits appear normal. Sinuses: Small amount of bilateral mastoid fluid. Mild mucosal thickening within the bilateral ethmoid air cells. BRAIN MR ANGIOGRAM: Anterior circulation: Intracranial internal carotid arteries are normal in size and enhancement. The flow within the paired anterior cerebral arteries is normal and symmetric. The flow within the middle cerebral arteries is normal and symmetric. The anterior communicating artery is seen. No stenoses, occlusions, or aneurysms. Posterior circulation: The left vertebral artery appears to terminate in a posterior inferior cerebellar artery. Right vertebral artery is patent. Basilar artery is patent. The flow within the posterior cerebral arteries is normal and symmetric. No stenoses, occlusions, or aneurysms. 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 Thoracic aortic arch is widely patent as visualized. There is conventional branching anatomy. Number artery is suboptimally visualized but grossly patent. Right subclavian artery is abruptly visualized at its origin, but is grossly patent as visualized. Right vertebral artery is dominant and patent. Right common, internal, and external carotid arteries are patent. Left common, internal, and axial carotid arteries are patent. Left subclavian artery is patent. Left vertebral artery origin is not well-seen, but is otherwise patent, and terminates in a posterior inferior cerebellar artery. IMPRESSION: BRAIN MRI: 1. Volume loss and small vessel ischemic disease. 2. No acute process. No recent infarct. 3. Sinus and mastoid disease. BRAIN MR ANGIOGRAM: Negative cerebral MR angiography. NECK MR ANGIOGRAM: 1. No internal carotid stenosis bilaterally. 2. Patent right vertebral artery. Suboptimally visualized left vertebral artery origin, which is otherwise patent. 3. Suboptimally visualized right subclavian and innominate arteries as described above. Dictated by: Lior Jeong M.D. on 09/12/2019 at 11:21 Approved by: Lior Jeong M.D. on 09/12/2019 at 11:27
[2019-09-11 18:30] VITALS: BP 137/85; PULSE 71; RESP 19; TEMP 36.9; O2SAT 97
--- NOTE | 2019-09-11 18:33 | P.CONS_ITS ---
History of Present Illness Consult details Date Patient Seen: 09/11/19 Time Patient Seen: 19:05 Chief complaint: slurring speech/ disorieted/ problems w/ diabetes Reason for consult: Spinal stenosis Requesting provider: Honey Melgoza Narrative: 74-year-old male complaining of pain in the back with radiation going down his legs. He has a history of a C4-[address] Hammonds as well as a revision L4 through S1 posterior instrumented fusion in 2017. He did well after these. However, over the past month he has been having increasing pain in his back that radiates out to both sides to the buttocks. He will get pain running down the backs of both of his legs. The pain also runs all the way up is back to his neck. He finally came in today as the pain was getting severe. The back pain is worse than the leg symptoms. He thinks the legs do not hurt as much as they also have been getting numb. He denies weakness in the legs. He does have a history of peripheral neuropathy in both of his feet. He has also been having difficulty with urinary control over the past 3 weeks. He also came in today's he has been having slurring of speech difficulty finding words for the past 2 days. He has been dizzy for the past several months. He has been having difficulty with his diabetes management and recently has been cutting back on his medications as he has been hypoglycemic repeatedly sometimes with glucose of 30. Meds Home Medications and Allergies Home Medications Medication Instructions Recorded Confirmed Type albuterol sulfate [Ventolin HFA] 2 puff INH BID #0 05/02/16 09/11/19 History fluticasone propion-salmeterol 1 puff INH BID #0 05/02/16 09/11/19 History [Advair Diskus] insulin detemir U-100 [Levemir 50 unit SQ HS #0 05/02/16 10/27/17 History FlexTouch U-100 Insuln] calcium carb,cit-mag cit,ox-D3 1 tab PO QDAY #0 05/06/16 10/27/17 History omeprazole 40 mg PO QDAY #0 05/06/16 09/11/19 History hydrochlorothiazide 25 mg PO QDAY #0 09/29/16 10/27/17 History insulin aspart U-100 [Novolog 20 unit SQ TID #0 12/16/16 10/27/17 History Flexpen U-100 Insulin] exenatide microspheres [Bydureon 1 dose SUB-Q QWEEK 10/27/17 10/27/17 History BCise] levothyroxine [Synthroid] 1 tab PO DAILY 10/27/17 09/11/19 History losartan 50 mg PO DAILY 10/27/17 09/11/19 History metformin 500 mg PO DAILY 10/27/17 09/11/19 History ropinirole 0.25 mg PO BID 10/27/17 10/27/17 History sucralfate 1 tab PO QID 10/27/17 10/27/17 History Allergies Allergy/AdvReac Type Severity Reaction Status Date / Time oxytetracycline Allergy Severe SWELLLING, Unverified 07/22/17 12:35 [From TERRAMYCIN] COULDN'T BREATHE, HOSPITALIZED Penicillins [PENICILLINS] Allergy Severe SWELLING, Unverified 07/22/17 12:35 COULDN'T BREATHE, HOSPITALIZED Cholinesterase Allergy Unknown STATES Unverified 07/22/17 12:35 Inhibitor(Carbamate) THAT HE [CHOLINESTERASE HAS A INHIBITOR(CARBAMATE)] CHOLINESTERASE DEFICIENCY oxycodone [OXYCODONE] AdvReac Intermediate Unverified 07/22/17 12:35 Review of Systems Constitutional Constitutional: Denies chills and Denies fever(s) Eyes Eyes: Denies blurry vision and Denies loss of vision ENT Ears, Nose, Mouth, and Throat: Yes dizziness Cardiovascular Cardiovascular: Denies chest pain and Denies rapid, pounding, or irregular heartbeat Respiratory Respiratory: Denies cough and Denies wheezing Gastrointestinal Gastrointestinal: Denies abdominal pain Genitourinary Genitourinary: Reports urinary incontinence Integumentary/Breasts Skin/Breast: Denies wounds Neurologic Neurologic: Denies confusion, Reports dizziness, Reports lack of coordination, Denies loss of vision, Denies other visual disturbances, Reports radicular pain and Reports paresthesias Psychiatric Psychiatric: Denies confusion Endocrine Endocrine: Denies palpitations Hematologic/Lymphatic Hematologic/Lymphatic: Denies easy bleeding Allergic/Immunologic Allergic/Immunologic: Denies wheezing Exam Vital Signs (past 8 hours): - 09/11/19 13:42 09/11/19 16:00 09/11/19 16:08 Temperature 98.1 F Pulse Rate 71 70 Respiratory Rate 16 24 Blood Pressure 151/79 H Blood Pressure [Right Arm] 124/68 Pulse Oximetry 97 95 Oxygen Delivery Method Room Air Narrative Exam Narrative: Some stuttering speech and word finding Const Orientation: alert and oriented x3 Resp Auscultation: clear to auscultation bilaterally Cardio Rate: regular rate Rhythm: regular rhythm Back/Spine/Pelvis Other: Sit up easily in bed without difficulty. Well healed lumbar incisions. Tender across the bilateral lower lumbar paraspinals to the bilateral gluteals. Some tenderness in the midthoracic and lower cervical paraspinals as well. 5/5 motor 1+ reflexes, negative straight leg raising both lower extremities, 1-2 beats clonus. Intact sensation both lower extremities but decreased globally through the feet. 1+ dorsalis pedis pulses. Objective Imaging Thoracic MRI: My impression: From 09/09/2019 shows ACDF from C4 through 6. Spinal cord tapers off and cauda equina at T12. No evidence of any neural compression. Lumbar MRI: My impression: From 09/09/2019 shows instrumented fusion from L4 through S1. L3-4 severe central stenosis from facet arthropathy. L4-5 open central laminectomy and neural foramen. L5-S1 open central laminectomy, mild to moderate bilateral foraminal narrowing. Cauda equina terminates at T12 Labs Result Diagrams: 09/11/19 13:30 09/11/19 13:30 Labs: Laboratory Results - last 24 hr 09/11/19 09/11/19 09/11/19 13:30 13:30 13:30 WBC 10.2 RBC 5.20 Hgb 16.0 Hct 47.0 MCV 90.4 MCH 30.9 MCHC 34.2 RDW 14.6 Plt Count 262 Neut % (Auto) 71.0 Lymph % (Auto) 20.3 L [place] % (Auto) 6.6 Eos % (Auto) 1.4 L Baso % (Auto) 0.7 Neut # (Auto) 7300 H Lymph # (Auto) 2100 [place] # (Auto) 700 Eos # (Auto) 100 Baso # (Auto) 100 PT 11.2 INR 1.0 APTT 30 Sodium 138 Potassium 3.8 Chloride 99 Carbon Dioxide 30 BUN 26 H Creatinine 0.94 Estimated GFR > 60.0 BUN/Creatinine Ratio 27.7 H Glucose 248 H Calcium 10.4 H Urine RBC Urine WBC Ur Squamous Epith Cells Urine Bacteria Ur Culture Indicated? 09/11/19 15:55 WBC RBC Hgb Hct MCV MCH MCHC RDW Plt Count Neut % (Auto) Lymph % (Auto) [place] % (Auto) Eos % (Auto) Baso % (Auto) Neut # (Auto) Lymph # (Auto) [place] # (Auto) Eos # (Auto) Baso # (Auto) PT INR APTT Sodium Potassium Chloride Carbon Dioxide BUN Creatinine Estimated GFR BUN/Creatinine Ratio Glucose Calcium Urine RBC 0-1/hpf Urine WBC 0-1/hpf Ur Squamous Epith Cells 0-1 /hpf Urine Bacteria None seen Ur Culture Indicated? Cult not indicated Assessment & Plan Assessment & Plan narrative: We discussed the multifactorial nature back pain to include muscular, degenerative, neurologic. His increasing leg symptoms as well as bladder changes could certainly be related to his adjacent spinal stenosis at L3-4. However, this is well below the cauda equina and spinal cord, and these are not acute findings, they have been going on for several weeks. This is not a surgical emergency but I do think he is looking at another laminectomy with possible fusion at L3-4. I recommend IV steroids for pain control and I have discussed this with Dr. Melgoza. The main concern right now is his neurologic symptoms with possible stroke symptoms going on for the past several days. He has been admitted for workup of this. I will continue to follow him in the hospital for now.
[2019-09-11 19:10] VITALS: BMI 25.4
[2019-09-11 19:19] LABS: UR Morphine/Opiate cutoff 300 Negative (Negative); Ur Creatinine 20 (Normal); Ur Specific Gravity 1.025 (Normal); Urine Amphetamines Negative (Negative); Urine Barbiturates Negative (Negative); Urine Benzodiazepines Negative (Negative); Urine Cocaine Negative (Negative); Urine MDMA Negative (Negative); Urine Methadone Negative (Negative); Urine Methamphetamines Negative (Negative); Urine Oxycodone Negative (Negative); Urine Phencyclidine Negative (Negative); Urine Tetrahydrocannabinol Positive (Negative); Urine Tricyclic Antidepressant Negative (Negative); Urine pH 7 (Normal)
--- NOTE | 2019-09-11 19:20 | PM.HP.1 ---
History of Present Illness History of Present Illness Date Patient Seen: 09/11/19 Chief complaint: slurring speech/ disorieted/ problems w/ diabetes Narrative: The patient is a 74-year-old male with a history of hypertension, type 2 diabetes,hyperlipidemia, hypothyroidism, COPD who is a smoker who presents to the hospital for 3 days of difficulty with his speech. The patient was seen by his primary care physician at [place]. He was noted to have difficulty getting words out. At times he could not speak at all and at other times he would be able to speak. He notes that his symptoms come and go. He has had minimal blurred vision which is old. He has had chronic weakness of his upper and lower extremities which is also old. He has chronic diabetic neuropathy of his feet, and also reports some numbness in his lower extremities. Patient was also complaining of dizziness which he has had for several months. He had an outpatient MRI which was essentially negative. Patient presented to the hospital for evaluation. His NIH score in the emergency department was 4. He is also underwent MRI of the lumbar spine which confirmed spinal stenosis at L4-L5 area. There was some concern about cauda equina syndrome as well. Patient does report some incontinence to urine. But all other review of systems is negative. He is admitted to the hospital at this time for evaluation of speech abnormalities. Patient also reports low blood sugars and have been adjusting his insulin downward. Most recently he was on 30 units of Lantus at night. Patient History Medical History (Updated 09/11/19 @ 19:23 by Honey Melgoza MD) Cervical stenosis of spinal canal (Acute) Cervical vertebral fusion (Acute) Diabetes (Acute) Hypertension (Acute) Hypothyroid (Acute) Stable angina (Acute) Surgical History History of lumbar fusion (Acute) History of rotator cuff surgery (Acute) Family & Social History Family History (Updated 09/11/19 @ 19:24 by Honey Melgoza MD) Mother Metastatic cancer Father Cancer Brother Type 1 diabetes Safety & Behavioral: Feels Safe in Current Yes Environment Been Physically Hurt or No Threatened By a Person Tobacco & Substance use: Smoking Status Current every day smoker Substance Use Type does not use Meds Home Medications and Allergies Home Medications Medication Instructions Recorded Confirmed Type albuterol sulfate [Ventolin HFA] 2 puff INH BID #0 05/02/16 09/11/19 History fluticasone propion-salmeterol 1 puff INH BID #0 05/02/16 09/11/19 History [Advair Diskus] insulin detemir U-100 [Levemir 50 unit SQ HS #0 05/02/16 10/27/17 History FlexTouch U-100 Insuln] calcium carb,cit-mag cit,ox-D3 1 tab PO QDAY #0 05/06/16 10/27/17 History omeprazole 40 mg PO QDAY #0 05/06/16 09/11/19 History hydrochlorothiazide 25 mg PO QDAY #0 09/29/16 10/27/17 History insulin aspart U-100 [Novolog 20 unit SQ TID #0 12/16/16 10/27/17 History Flexpen U-100 Insulin] exenatide microspheres [Bydureon 1 dose SUB-Q QWEEK 10/27/17 10/27/17 History BCise] levothyroxine [Synthroid] 1 tab PO DAILY 10/27/17 09/11/19 History losartan 50 mg PO DAILY 10/27/17 09/11/19 History metformin 500 mg PO DAILY 10/27/17 09/11/19 History ropinirole 0.25 mg PO BID 10/27/17 10/27/17 History sucralfate 1 tab PO QID 10/27/17 10/27/17 History Allergies Allergy/AdvReac Type Severity Reaction Status Date / Time oxytetracycline Allergy Severe SWELLLING, Unverified 07/22/17 12:35 [From TERRAMYCIN] COULDN'T BREATHE, HOSPITALIZED Penicillins [PENICILLINS] Allergy Severe SWELLING, Unverified 07/22/17 12:35 COULDN'T BREATHE, HOSPITALIZED Cholinesterase Allergy Unknown STATES Unverified 07/22/17 12:35 Inhibitor(Carbamate) THAT HE [CHOLINESTERASE HAS A INHIBITOR(CARBAMATE)] CHOLINESTERASE DEFICIENCY oxycodone [OXYCODONE] AdvReac Intermediate Unverified 07/22/17 12:35 Review of Systems Review of Systems ROS: Yes All systems reviewed with the patient and are negative except as otherwise documented Exam Vital Signs (past 8 hours): - 09/11/19 13:42 09/11/19 16:00 09/11/19 16:08 Temperature 98.1 F Pulse Rate 71 70 Respiratory Rate 16 24 Blood Pressure 151/79 H Blood Pressure [Right Arm] 124/68 Pulse Oximetry 97 95 09/11/19 18:30 Temperature 98.4 F Pulse Rate 71 Respiratory Rate 19 Blood Pressure 137/85 Blood Pressure [Right Arm] Pulse Oximetry 97 Oxygen Delivery Method Room Air Oxygen Flow Rate 0 Narrative Exam Narrative: pleasant male in no obvious distress HEENT: Normocephalic atraumatic, sclerae anicteric, extraocular muscles are intact, oropharynx reveals moist mucous membranes, neck is supple without adenopathy thyromegaly or carotid bruits Lungs: Clear to auscultation cardiac exam: Regular rate and rhythm normal S1-S2 abdomen: Soft nontender nondistended extremities: No edema neuro exam: Cranial nerves 2-12 are intact, strength is symmetric and equal, sensation is grossly intact reflexes are brisk and equal, speech is halting, he does have some expressive aphasia. NIH SS score confirmed at 4 Objective Labs Result Diagrams: 09/11/19 13:30 09/11/19 13:30 Labs: Laboratory Results - last 24 hr 09/11/19 09/11/19 09/11/19 13:30 13:30 13:30 WBC 10.2 RBC 5.20 Hgb 16.0 Hct 47.0 MCV 90.4 MCH 30.9 MCHC 34.2 RDW 14.6 Plt Count 262 Neut % (Auto) 71.0 Lymph % (Auto) 20.3 L [place] % (Auto) 6.6 Eos % (Auto) 1.4 L Baso % (Auto) 0.7 Neut # (Auto) 7300 H Lymph # (Auto) 2100 [place] # (Auto) 700 Eos # (Auto) 100 Baso # (Auto) 100 PT 11.2 INR 1.0 APTT 30 Sodium 138 Potassium 3.8 Chloride 99 Carbon Dioxide 30 BUN 26 H Creatinine 0.94 Estimated GFR > 60.0 BUN/Creatinine Ratio 27.7 H Glucose 248 H Calcium 10.4 H Urine RBC Urine WBC Ur Squamous Epith Cells Urine Bacteria Ur Culture Indicated? U Opiates 300ng/mL cut Ur Oxycodone Screen Urine Methadone Screen Ur Barbiturates Screen U Tricyclic Antidepress Ur Phencyclidine Scrn Ur Amphetamines Screen U Methamphetamines Scrn Ur MDMA Scrn (Ecstasy) U Benzodiazepines Scrn Urine Cocaine Screen U Marijuana (THC) Screen 09/11/19 09/11/19 15:55 19:10 WBC RBC Hgb Hct MCV MCH MCHC RDW Plt Count Neut % (Auto) Lymph % (Auto) [place] % (Auto) Eos % (Auto) Baso % (Auto) Neut # (Auto) Lymph # (Auto) [place] # (Auto) Eos # (Auto) Baso # (Auto) PT INR APTT Sodium Potassium Chloride Carbon Dioxide BUN Creatinine Estimated GFR BUN/Creatinine Ratio Glucose Calcium Urine RBC 0-1/hpf Urine WBC 0-1/hpf Ur Squamous Epith Cells 0-1 /hpf Urine Bacteria None seen Ur Culture Indicated? Cult not indicated U Opiates 300ng/mL cut Negative Ur Oxycodone Screen Negative Urine Methadone Screen Negative Ur Barbiturates Screen Negative U Tricyclic Antidepress Negative Ur Phencyclidine Scrn Negative Ur Amphetamines Screen Negative U Methamphetamines Scrn Negative Ur MDMA Scrn (Ecstasy) Negative U Benzodiazepines Scrn Negative Urine Cocaine Screen Negative U Marijuana (THC) Screen Positive H Assessment & Plan Assessment & Plan narrative: Impression 1. 74-year-old male with multiple risk factors admitted to the hospital for expressive aphasia - head CT negative for acute stroke - head MRI will be obtained with stroke protocol tomorrow - echo obtained in the ER will review results tomorrow - will start Plavix 75 mg per day, obtain fasting lipid profile, start atorvastatin 80 mg per day - will obtain PT OT and speech consultations 2. lumbar stenosis - question cauda equina syndrome, per Dr. Sanchez no urgent surgical intervention - patient to start steroids for 2 days in addition to pain medication - outpatient evaluation for for definitive surgical treatment once his stroke workup has been completed 3. type 2 diabetes - patient with decreasing blood sugars. Will resume Lantus at 40 units given his needs for steroids. Will hold metformin while in the hospital 4. hypertension - continue losartan, hold hydrochlorothiazide in the hospital 5. hypothyroidism - will check TSH - continue L-thyroxine 6. restless leg syndrome - continue ropinrole 7. GERD continue omeprazole and sucralfate 8. COPD - continues inhalers - no evidence of acute exacerbation 9. nicotine dependence - patient was offered a nicotine patch which he declined patient will be placed on Lovenox for DVT prophylaxis. He will be says admitted under observation. Patient indicates he is DNR and will note that on his record accordingly
[2019-09-11 20:15] LABS: Cholesterol 194 mg/dL (140-199); HDL Cholesterol 63 mg/dL (40-60); LDL Cholesterol Calculated 82 mg/dL (<100); Triglycerides 243 mg/dL (35-150)
[2019-09-11 20:17] LABS: Hemoglobin A1C% w Est Avg Glu 7.2 % (4.0-6.0)
[2019-09-11] MEDS: DEXAMETHASONE 10 MG/ML VIAL IV (20:18)
[2019-09-11 20:32] VITALS: PULSE 76; RESP 16; O2SAT 96
[2019-09-11 21:28] VITALS: BP 145/79; PULSE 70; RESP 24; TEMP 36.4; O2SAT 93
[2019-09-11] MEDS: ATORVASTATIN 20 MG TABLET 80 MG PO (21:56)
[2019-09-11] MEDS: SUCRALFATE 1 GM/10 ML ORAL SUSP PO (21:57)
[2019-09-11] MEDS: diazePAM 5 MG TABLET PO (21:57)
--- NOTE | 2019-09-11 22:44 | PC.NURSE ---
Pt admitted per stretcher from ED at 1830. Walked to bed without assistance. Speech is clear and no hesitation noted. Swallow screen done and passed, MD notified and diet ordered. Placed on telemetry, NSR with BBB noted. VSS, afebrile. Pt states he has some long standing loss of sensation in lower extremities due to back issues. Denies pain at this time. Inventory of belongings done, valuables placed in the safe.
[2019-09-12] MEDS: DEXAMETHASONE 4 MG/ML VIAL IV ×3 (00:41→12:43)
[2019-09-12] MEDS: SODIUM CHLORIDE 0.9% 1,000 ML 150 ML IV ×2 (00:41→08:40)
[2019-09-12 00:45] VITALS: BP 125/65; PULSE 73; RESP 16; TEMP 36.7; O2SAT 92
[2019-09-12 04:15] VITALS: BP 131/61; PULSE 72; RESP 18; TEMP 37.1; O2SAT 92
[2019-09-12] MEDS: SUCRALFATE 1 GM/10 ML ORAL SUSP PO ×3 (06:47→18:03)
[2019-09-12] MEDS: diazePAM 5 MG TABLET PO ×2 (06:47→14:25)
--- NOTE | 2019-09-12 07:00 | PC.NURSE ---
Front Office Assistant Note-Early shift during assessment, patient is oriented with delay speech, NIH 3, [place] hearing aids at bedside, BG checked to be 311 at 0100. Denies pain, PO diazepam given in am as scheduled. IVP Decadron also given.
--- NOTE | 2019-09-12 07:34 | PM.PN.1 ---
Subjective Subjective Date Patient Seen: 09/12/19 Time Patient Seen: 07:34 Interval history: He is doing much better today with the IV steroids. Pain is fairly minimal. He feels like his speech is better today as well. Exam Vital Signs (past 8 hours): - 09/12/19 00:45 09/12/19 04:15 Temperature 98.1 F 98.8 F Pulse Rate 73 72 Respiratory Rate 16 18 Blood Pressure 125/65 131/61 Pulse Oximetry 92 92 Oxygen Delivery Method Room Air Oxygen Flow Rate 0 Const Orientation: alert and oriented x3 Back/Spine/Pelvis Other: Mild tenderness across the lumbar spine. 5/5 motor negative straight leg raising 1+ pulses both lower extremities. Neuro Other: No searching for words today. Objective Labs Result Diagrams: 09/11/19 13:30 09/11/19 13:30 Labs: Laboratory Results - last 24 hr 09/11/19 09/11/19 09/11/19 13:30 13:30 13:30 WBC 10.2 RBC 5.20 Hgb 16.0 Hct 47.0 MCV 90.4 MCH 30.9 MCHC 34.2 RDW 14.6 Plt Count 262 Neut % (Auto) 71.0 Lymph % (Auto) 20.3 L [place] % (Auto) 6.6 Eos % (Auto) 1.4 L Baso % (Auto) 0.7 Neut # (Auto) 7300 H Lymph # (Auto) 2100 [place] # (Auto) 700 Eos # (Auto) 100 Baso # (Auto) 100 PT 11.2 INR 1.0 APTT 30 Sodium 138 Potassium 3.8 Chloride 99 Carbon Dioxide 30 BUN 26 H Creatinine 0.94 Estimated GFR > 60.0 BUN/Creatinine Ratio 27.7 H Glucose 248 H Hemoglobin A1c Calcium 10.4 H Triglycerides Cholesterol LDL Cholesterol, Calc HDL Cholesterol Urine RBC Urine WBC Ur Squamous Epith Cells Urine Bacteria Ur Culture Indicated? U Opiates 300ng/mL cut Ur Oxycodone Screen Urine Methadone Screen Ur Barbiturates Screen U Tricyclic Antidepress Ur Phencyclidine Scrn Ur Amphetamines Screen U Methamphetamines Scrn Ur MDMA Scrn (Ecstasy) U Benzodiazepines Scrn Urine Cocaine Screen U Marijuana (THC) Screen 09/11/19 09/11/19 09/11/19 13:30 13:30 15:55 WBC RBC Hgb Hct MCV MCH MCHC RDW Plt Count Neut % (Auto) Lymph % (Auto) [place] % (Auto) Eos % (Auto) Baso % (Auto) Neut # (Auto) Lymph # (Auto) [place] # (Auto) Eos # (Auto) Baso # (Auto) PT INR APTT Sodium Potassium Chloride Carbon Dioxide BUN Creatinine Estimated GFR BUN/Creatinine Ratio Glucose Hemoglobin A1c 7.2 H Calcium Triglycerides 243 H Cholesterol 194 LDL Cholesterol, Calc 82 HDL Cholesterol 63 H Urine RBC 0-1/hpf Urine WBC 0-1/hpf Ur Squamous Epith Cells 0-1 /hpf Urine Bacteria None seen Ur Culture Indicated? Cult not indicated U Opiates 300ng/mL cut Ur Oxycodone Screen Urine Methadone Screen Ur Barbiturates Screen U Tricyclic Antidepress Ur Phencyclidine Scrn Ur Amphetamines Screen U Methamphetamines Scrn Ur MDMA Scrn (Ecstasy) U Benzodiazepines Scrn Urine Cocaine Screen U Marijuana (THC) Screen 09/11/19 19:10 WBC RBC Hgb Hct MCV MCH MCHC RDW Plt Count Neut % (Auto) Lymph % (Auto) [place] % (Auto) Eos % (Auto) Baso % (Auto) Neut # (Auto) Lymph # (Auto) [place] # (Auto) Eos # (Auto) Baso # (Auto) PT INR APTT Sodium Potassium Chloride Carbon Dioxide BUN Creatinine Estimated GFR BUN/Creatinine Ratio Glucose Hemoglobin A1c Calcium Triglycerides Cholesterol LDL Cholesterol, Calc HDL Cholesterol Urine RBC Urine WBC Ur Squamous Epith Cells Urine Bacteria Ur Culture Indicated? U Opiates 300ng/mL cut Negative Ur Oxycodone Screen Negative Urine Methadone Screen Negative Ur Barbiturates Screen Negative U Tricyclic Antidepress Negative Ur Phencyclidine Scrn Negative Ur Amphetamines Screen Negative U Methamphetamines Scrn Negative Ur MDMA Scrn (Ecstasy) Negative U Benzodiazepines Scrn Negative Urine Cocaine Screen Negative U Marijuana (THC) Screen Positive H Assessment & Plan Assessment & Plan narrative: Spinal stenosis at L3-4. He is doing much better today with symptoms from the IV steroids. Continue the steroids for 48 hours. Most likely he will need surgery at L3-4 in the future. This can be done electively as an outpatient. However, his stroke workup is the main concern right now. Follow-up in 1 week. Quality VTE Deep Vein Thrombosis/Pulmonary Embolism Present on Admission: No
[2019-09-12 08:00] VITALS: BP 126/63; PULSE 82; RESP 17; TEMP 36.6; O2SAT 92
[2019-09-12] MEDS: LEVOTHYROXINE 150 MCG TABLET PO (08:40)
[2019-09-12] MEDS: PANTOPRAZOLE 40 MG TABLET PO (08:40)
[2019-09-12] MEDS: INSULIN ASPART 100 UNIT/ML INSULN PEN SUBCUT ×3 (08:43→18:03)
[2019-09-12] MEDS: ENOXAPARIN 40 MG/0.4 ML SYRINGE SUBCUT (08:45)
[2019-09-12] MEDS: LOSARTAN 50 MG TABLET PO (08:45)
[2019-09-12] MEDS: ROPINIROLE 0.25 MG TABLET PO (08:45)
[2019-09-12] MEDS: CLOPIDOGREL 75 MG TABLET PO (08:45)
[2019-09-12] MEDS: lisinopriL 10 MG TABLET PO (08:45)
[2019-09-12] MEDS: ALBUTEROL HFA 60 PUFF/8 GM INH INH (09:17)
[2019-09-12] MEDS: FLUTICASONE/SALMETEROL 500/50 60 PUFF DISKUS INH (09:18)
[2019-09-12 09:23] VITALS: PULSE 90; RESP 18; O2SAT 95
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
[2019-09-12 12:00] VITALS: BP 131/67; PULSE 80; RESP 17; TEMP 36.9; O2SAT 93
--- NOTE | 2019-09-12 12:15 | OT.IP.EVAL ---
Past Medical History (Last Reviewed 09/11/19 @ 19:22 by Honey Melgoza MD) Cervical stenosis of spinal canal (Acute) Cervical vertebral fusion (Acute) Diabetes (Acute) Hypertension (Acute) Hypothyroid (Acute) Stable angina (Acute) Surgical History (Last Reviewed 09/11/19 @ 19:09 by Dhruv Sanchez MD) History of lumbar fusion (Acute) History of rotator cuff surgery (Acute) Occupational Therapy Inpatient Evaluation/Re-Eval M1 PT/OT-IP Prior Functional Status Start: 09/12/19 09:58 Freq: NEEDED Status: Active Protocol: Document 09/12/19 14:13 CGR (Rec: 09/12/19 14:23 CGR [email or web address]) Medical Review Prior Functional Status Medical History Reviewed Yes Diet/Fluid Consistency Regular Communication WNL. Pt is an effective verbal communicator at baseline. Mobility and Gait Pt has chronic low back pain but remains active with step counts typically above [id number] per day. I'm used to it. He wears a lumbar brace for support which makes higher level of activity bearable.. Activities of Daily Living and IADL's Independent with all ADL's. 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 Social History Household Members spouse Living Arrangements Mobile home Number of Floors (Floors) One Floor Number of Stairs To Enter/Railing? 6 steps with R rail Home Environment High Toilet,Walk in Shower Home Equipment Straight Cane,Hand Held Shower ,Grab Bars In Shower Employment Status Retired Additional Social History Comment Pt wears lumbar brace M2 OT-IP Current Condition Start: 09/12/19 14:13 Freq: Status: Active Protocol: Document 09/12/19 14:13 CGR (Rec: 09/12/19 14:23 CGR [email or web address]) Occupational Therapy Current Condition Current Condition Evaluation Date 09/12/19 Treatment Diagnosis slurred speech Diagnosis Onset Date 09/11/19 M3 OT- IP Subjective and Pain Start: 09/12/19 14:13 Freq: Status: Active Protocol: Document 09/12/19 14:13 CGR (Rec: 09/12/19 14:23 CGR [email or web address]) OT- Subjective Occupational Therapy Visit Type Type Initial Evaluation Visit Start Time 11:52 Visit Stop Time 12:15 Total Visit Minutes 23 Notes Pt finishing with P.T. when OT entered. OT Pain Assessment Pain When Pain Assessed At Rest Pain Present Pain Present Denied Pain M4 OT- IP ADL's Start: 09/12/19 14:13 Freq: Status: Active Protocol: Document 09/12/19 14:13 CGR (Rec: 09/12/19 14:23 CGR [email or web address]) OT [id number] Comments OT Self-Feeding Comments Not meal time OT ADL-Grooming Comments OT Grooming Comments Pt declined need OT ADL-Oral Care Comments Oral Care Comments Pt states already performed OT ADL-Dressing General Eval Lower Body Dressing Ability Independent Areas Needing Assistance Socks OT ADL-Toileting General Evaluation Toileting Ability Independent Devices Toileting Assistive Devices Grab Bars OT ADL-Bathing Comments OT Bathing Comments not performed M5 OT- IP IADL's Start: 09/12/19 14:13 Freq: Status: Active Protocol: Document 09/12/19 14:13 CGR (Rec: 09/12/19 14:23 CGR [email or web address]) OT-Instrumental Activities of Daily Living Deficits IADL Deficits Identified No Deficits Home Safety Awareness Awareness of Need for Assistance at Home Good Awareness Ability to Problem Solve Emergency Able to Problem Solve Situations Medication Management Medication Management No Deficits Identified Money Management Money Management Caregiver Provides Assistance Meal Preparation Meal Preparation Caregiver Provides Assist Stock Fitter Stock Fitter No Deficits Identified Driving Driving Comments 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 Pt was unable to perform any of the questions that involved numbers but otherwise achieved all points except one missed from the listening comprehension and he was only able to state 4 of the 5 items for memory. It is likely that pt is at his baseline with cognition and that he has struggled with numbers for some time given his hx of head trauma. OT- Vision and Hearing OT- Vision Assessment Visual Acuity Glasses All The Time Visual Attentiveness WFL Occular Pursuits WFL Visual [place] WFL Visual Spacial Neglect Not Applicable M7 OT- IP Mobility and Balance Start: 09/12/19 14:13 Freq: Status: Active Protocol: Document 09/12/19 14:13 CGR (Rec: 09/12/19 14:23 CGR [email or web address]) OT- Bed Mobility Assessment Rolling Type of Rolling Roll to Right,Roll to Left Level of Assistance Independent Supine to Sit Supine to Sit Assist Independent Sit to Supine Sit to Supine Assist Independent Scooting Scooting to Edge of Bed Independent OT-Transfer Assessment Sit to and From Stand Sit to and from Stand Independent Transfers Transfer Ability Independent Technique Transfer Destination Bed,Chair,Shower Stall,Toilet Transfer Technique Stand Step Pivot Devices Transfer Assistive Devices Gait Belt Comments Mobility Comments Pt mobilized around his room without difficulty. OT- Gait Assessment Gait Gait Assistance Required: Independent Assistive Devices Assistive Device Gait Belt OT- Balance Assessment Sitting Balance and Reactions Static Sitting Balance Ability Normal Dynamic Sitting Balance Ability Good Standing Balance and Reactions Static Standing Balance Ability Normal Dynamic Standing Balance Ability Normal M8 OT- IP Objective Assessments Start: 09/12/19 14:13 Freq: Status: Active Protocol: Document 09/12/19 14:13 CGR (Rec: 09/12/19 14:23 CGR [email or web address]) OT Gross Range of Motion Upper Extremity Range of Motion Assessment Within Functional Limits OT Strength Upper Extremity Strength Assessment Within Functional Limits Shoulder 3+/5 Elbow 4/5 Forearm 4/5 Wrist 4/5 Hand 4/5 OT- Coordination Assessment Upper Extremity Finger to Nose Test Within Functional Limits Finger Tapping Test Within Functional Limits OT-Muscle Tone Assessment Muscle Tone WNL Yes OT Sensation Assessment Edema Edema Absent M9 OT- IP Assessment and Plan Start: 09/12/19 14:13 Freq: Status: Active Protocol: Document 09/12/19 14:13 CGR (Rec: 09/12/19 14:23 CGR [email or web address]) OT Summary Assessment and Plan Potential Rehabilitation Potential Excellent Analytic Complexity at Evaluation Low Summary Progress Towards Goals Safe For Discharge,Goals Met Assessment Summary Pt presents as a low complexity evaluation after being admitted with slurred speech. Pt appears at his baseline for ADLs and functional mobility at this time. Cog assessment on the SLUMS but given hx of head trauma and comas (per pt) this is likely his baseline ( see above note). Pt is ok for discharge home. Frequency of Treatment Frequency Of Treatment Discharge Discharge Recommendations OT Discharge Recommendations Home Transportation Needs at Discharge Private Vehicle
--- NOTE | 2019-09-12 12:39 | PT.IIE ---
Surgical History (Last Reviewed 09/11/19 @ 19:09 by Dhruv Sanchez MD) History of lumbar fusion (Acute) History of rotator cuff surgery (Acute) Medical History (Last Reviewed 09/11/19 @ 19:22 by Honey Melgoza MD) Cervical stenosis of spinal canal (Acute) Cervical vertebral fusion (Acute) Diabetes (Acute) Hypertension (Acute) Hypothyroid (Acute) Stable angina (Acute) Physical Therapy Inpatient Evaluation/Re-Eval M1 PT/OT-IP Prior Functional Status Start: 09/12/19 09:58 Freq: NEEDED Status: Active Protocol: Document 09/12/19 12:02 AW (Rec: 09/12/19 12:38 AW [id number]) Medical Review Prior Functional Status Medical History Reviewed Yes Diet/Fluid Consistency Regular Communication WNL. Pt is an effective verbal communicator at baseline. Mobility and Gait Pt has chronic low back pain but remains active with step counts typically above [address] per day. I'm used to it. He wears a lumbar brace for support which makes higher level of activity bearable.. Activities of Daily Living and IADL's Independent with all ADL's. 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 Social History Household Members spouse Living Arrangements Mobile home Number of Floors (Floors) One Floor Number of Stairs To Enter/Railing? 6 short steps to enter with R rail ascending Home Environment High Toilet,Walk in Shower Home Equipment Straight Cane,Hand Held Shower ,Grab Bars In Shower Employment Status Retired Additional Social History Comment Pt is retired from the [employer]. 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 He lives with his , Pedro Luis. M2 PT-IP Current Condition Start: 09/12/19 09:58 Freq: NEEDED Status: Active Protocol: Document 09/12/19 12:02 AW (Rec: 09/12/19 12:38 AW [id number]) Physical Therapy Current Condition Current Condition Evaluation Date 09/12/19 Treatment Diagnosis possible TIA, difficulty in walking, expressive aphasia Onset Date 09/10/19 M3 PT-IP Subjective Start: 09/12/19 09:58 Freq: NEEDED Status: Active Protocol: Document 09/12/19 12:02 AW (Rec: 09/12/19 12:38 AW [id number]) Subjective Physical Therapy Visit Type Type Initial Evaluation Visit Start Time 11:30 Visit Stop Time 11:59 Total Visit Minutes 29 Notes Brain MRI/MRA states no acute findings. Pt wore lumbar brace throughout eval Number of COMMUNICATIONS TOWER TECHNICIAN Visits 0 Physical Therapy Visit Comments Patient Comments Pt is willing to participate with PT Therapy Pain Assessment Pain When Pain Assessed During Mobility Pain Present Pain Present Pain Reported Location Lower back Scale Used not quantified; pt reports pain is baseline M4 PT-IP Mobility and Gait Start: 09/12/19 09:58 Freq: NEEDED Status: Active Protocol: Document 09/12/19 12:02 AW (Rec: 09/12/19 12:38 AW [id number]) PT-Transfer Assessment Sit to and From Stand Sit to and from Stand Independent Equipment Transfer Assistive Device Gait Belt Orthotic/Prosthetic Devices or Brace: Yes Transfers Transfer Destination Chair Transfer Technique pt ambulated without AD Transfer Ability Level of Assist Independent Comments Mobility Comments Pt sitting up in chair upon PT arrival. He is extremely verbose and willing to share complicated history. He completed sit to stand independently and stood next to chair for static balance assessment. He then walked in the hallways SBA without AD before returning to the room and transferring to the chair independently. Pt was left with OT. Gait Assessment Gait Gait Assistance Required: Standby Assistance Distance (Feet) 250 Assistive Devices Assistive Device Gait Belt Orthotic/Prosthetic Devices or Brace: Yes Gait Deviations General Gait Pattern Antalgic,Decreased Feet Clearance,Flexed Trunk Factors Limiting Gait Function Factors Limiting Gait Function Pain,Poor Balance Comments Gait Comments Pt ambulated in the halls without AD SBA due to mild unsteadiness, especially during testing. Pt completed 4 -item Dynamic Gait Index with score of 8/12 - 2 points deducted each for moderate change in gait speed during horizontal and vertical head turns. Stair Climbing Assessment Comments Stair Climbing Comments Not assessed. PT-Balance Assessment Sitting Balance and Reactions Static Sitting Balance Ability Normal Dynamic Sitting Balance Ability Normal Standing Balance and Reactions Static Standing Balance Ability Good Dynamic Standing Balance Ability Fair Device Used none Balance Tests Romberg normal Comments Other Balance Tests/Deviations/Treatment Pt able to withstand sternal : nudges and rotational challenges to balance in narrow stance. Functional Assessments Functional Tests Dynamic Gait Index 4-item DGI 8/12 M5 PT-IP Objective Assessments Start: 09/12/19 09:58 Freq: NEEDED Status: Active Protocol: Document 09/12/19 12:02 AW (Rec: 09/12/19 12:38 [id number]) Orientation Orientation/Cognition Level of Alertness Alert Orientation Name,Day of Week,Place, Situation Language Function Ability Expressive Aphasia Safety Awareness Decreased Safety Awareness Comments Pt having mild difficulty with phonation. Speech content was appropriate. Pt aware of speech difficulty. Gross Range of Motion Lower Extremity ROM Assessment Within Functional Limits Strength Lower Extremity Strength Assessment Within Functional Limits Comments Strength Comments Grossly 4+/5 to 5/5 BLE Coordination Assessment Gross Coordination Gross Coordination WNL Sensation Assessment Sensation Gross Sensation Right UE Impaired,Left UE Impaired,Right LE Impaired, Left LE Impaired Light Touch Impaired Proprioception (Position) Intact Sensation Description Numbness,Tingling Comments Sensation Comments Pt reports history of numbness to bilateral hands and feet. Current presentation is similar to baseline. Muscle Tone Muscle Tone WNL Yes Comments Muscle Tone Comments RLE clonus 3 beats Other Assessments Other Other Assessments Occulomotor and brief vestibular exam normal though pt reports awareness of extraneous peripheral vision phenomena which he finds disturbing (not reproduced on exam). M6 PT-IP Treatment Start: 09/12/19 09:58 Freq: NEEDED Status: Active Protocol: Document 09/12/19 12:02 AW (Rec: 09/12/19 12:38 [id number]) Physical Therapy Treatment Education Education Provided Safety Other Treatments Other Treatment Performed Provided education on role of PT, plan of care, and strategies for safe ambulation without AD. M7 PT-IP Assessment and Plan Start: 09/12/19 09:58 Freq: NEEDED Status: Active Protocol: Document 09/12/19 12:02 (Rec: 09/12/19 12:38 [id number]) PT Summary Assessment and Plan Potential Rehabilitation Potential Good Status of Condition at Evaluation Evolving Summary Impairments Balance,Sensation,Cognition, Gait Assessment Summary Mak is a 74 yo man admitted due to reports of dizziness and speech disturbances over the past week. MRI and angiogram report no acute process. Pt reports independence with all functional mobility at baseline. He also reports complicated medical history of childhood polio, head trauma, and PTSD. On evaluation no strength deficits were apparent, sensation disturbance was consistent with baseline, proprioception appeared intact, and transfers were independent. Pt scored 8 /12 on modified/4-item DGI indicating increased risk of falls though pt denies any history of falling. Speech content was appropriate but pt was aware of mild difficulty with phonation, apparent in occasional long pauses and overemphasis on beginning consonants. Pt will benefit from continued acute PT to address dynamic balance and to reinforce education. Pt will be safe to discharge home with spouse support and may consider referral to outpatient PT to address dynamic balance. Goals Bed Mobility Goal Independent Transfer Goal Independent Gait Goal Independent Gait Distance 500 Other Goals - up/down 6 steps with R rail ascending SBA Days to Meet Goals 2 Frequency of Treatment Frequency Of Treatment Once a Day Treatment Plan Physical Therapy Treatment Plan Bed Mobility Training,Transfer Training,Gait Training, Therapeutic Exercise,Balance Retraining,Discharge Planning, Neuromuscular Re-ed Other Recommendations and Next Treatment gait with shoes donned, Focus including head turns; dynamic balance; assess safety on stairs Recommendations To Nursing Amount of Assist Needed Standby Assistance Discharge Recommendations PT Discharge Recommendations Home with Assistance, Outpatient PT Transportation Needs at Discharge Private Vehicle
--- NOTE | 2019-09-12 13:01 | CM.DANOTE ---
DCP: Case received, EMR reviewed and met with patient. Introduced self and role. Was able to meet with patient and obtain information regarding baseline activity level prior to hospitalization, as well as living situation. DCP assessment completed with information currently available. Patient is a 74 year old male who admitted yesterday afternoon to the care of the hospitalist team. PCP: Dr. Hassan. Payer: confirmed: Medicare/[employer]. Patient came to the hospital via private vehicle secondary to some speech difficulties, slurring of speech, as well as some disorientation. Patient has history of chronic diabetic neuropathy, as well as polio. He also had [place] P[place], as well. Patient had MRI today. He is working with P.T, and speech, for some expressive aphasia. Patient also has smoking history. Met with patient in his room. He was sitting up in his chair, alert and oriented, and pleasant demeanor. He stated that he is a very active walker. He resides in [place] with his spouse, Gerald. Patient has lived in [place] for approximately 6 years, and is originally from [place]. 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 Patient is working with P.T. and speech. Physical therapy is recommending that patient have outpatient P.T upon discharge, as well Speech. P: DCP to continue to follow and be available for any resources needed. Plan is for home when medically stable. Tasia Patrick RN/Garment [employer] Cutter Hand
--- NOTE | 2019-09-12 14:38 | PC.NURSE ---
Transfer Note Pt transferred to room 205 via wheelchair at 1400. Report given to Renan FERRER. All belongings with pt including glasses, clothes, cell phone. Pt denies pain to back. Speech is delayed/stuttering at times but is able to make needs known. Call light within reach.
[2019-09-12 15:46] VITALS: BP 129/64; PULSE 79; RESP 18; TEMP 36.7; O2SAT 94
--- NOTE | 2019-09-12 18:49 | PC.NURSE ---
BL Wheezing on expiration; RA O2= 97%; dry cough; pt reports dry cough X 3 weeks r/t smoking; VSS; speech slightly slurred with some words; no issues with word finding; pt denies any visual difficulties; gait symmetrical and stable; d/c instructions focused on risks, s/sx of stroke, smoking cessation, and f/u care; wallet returned from Safe; @ 1850 pt escorted on foot to personal vehicle;
--- NOTE | 2019-09-14 16:25 | P.DS_ITS ---
History of Present Illness History of Present Illness Chief complaint: slurring speech/ disorieted/ problems w/ diabetes Narrative: The patient is a 74-year-old male with a history of hypertension, type 2 diabetes,hyperlipidemia, hypothyroidism, COPD who is a smoker who presents to the hospital for 3 days of difficulty with his speech. The patient was seen by his primary care physician at [facility]. He was noted to have difficulty getting words out. At times he could not speak at all and at other times he would be able to speak. He notes that his symptoms come and go. He has had minimal blurred vision which is old. He has had chronic weakness of his upper and lower extremities which is also old. He has chronic diabetic neuropathy of his feet, and also reports some numbness in his lower extremities. Patient was also complaining of dizziness which he has had for several months. He had an outpatient MRI which was essentially negative. Patient presented to the hospital for evaluation. His NIH score in the emergency department was 4. He is also underwent MRI of the lumbar spine which confirmed spinal stenosis at L4-L5 area. There was some concern about cauda equina syndrome as well. Leroy lombardi does report some incontinence to urine. But all other review of systems is negative. He is admitted to the hospital at this time for evaluation of speech abnormalities. Patient also reports low blood sugars and have been adjusting his insulin downward. Most recently he was on 30 units of Lantus at night. Discharge Providers Provider Date of admission: 09/11/19 17:47 Discharge Date: 09/12/19 Primary care physician: Varsha Hassan MD Consults: 09/11/19 17:50 Consult to Discharge Planning Routine Comment: Consult to Occupational Therapy Evaluate & Treat Comment: Physician Instructions: Evaluate and treat Consult to Physical Therapy Evaluate & Treat Comment: Physician Instructions: Evaluate and Treat Consult to Speech Therapy Evaluate & Treat Comment: Physician Instructions: Evaluate and treat Discharge provider: Honey Melgoza MD Summary Hospital Course Discharge Diagnosis: 1. Aphasia, question TIA no evidence of CVA 2. Lumbar stenosis 3. Type 2 diabetes 4. COPD 5. GERD 6. Restless legs syndrome Hospital Course: Patient is a 74-year-old male who was admitted to the hospital with speech abnormalities. He had a distinct expressive aphasia. His initial head CT was negative. Patient was admitted to the hospital for possible stroke. Patient had an MRI of the brain which showed no evidence of stroke. He had an echocardiogram which showed normal LV function and mild aortic sclerosis. He had mildly enlarged aortic aneurysm. The patient had no weakness numbness or tingling. He did have CT findings of the lumbar spine that showed possible cauda equina syndrome. He was seen in consultation by Dr. mckinney who identifi ed that there was in fact no cauda equina syndrome but rather spinal canal stenosis. It was recommended that the patient be seen as an outpatient for definitive surgical treatment of his low back spinal canal stenosis. Patient improved significantly. He did continue to have occasional speech abno rmalities. He was referred to outpatient speech therapy. Patient was deemed appropriate for discharge and arrangements were made for him to be discharged home. In addition he will follow-up with his primary care physician for referral to neurology regarding ongoing evaluation of his speech abnormalities. Status at Discharge Cognitive/behavioral status at discharge: oriented Functional status at discharge: independent ambulation Overall status at discharge: patient is not back to baseline Time Spent with Patient Time spent: Less than 30 minutes Time spent discussing smoking cessation with patient: 3 to 10 minutes Exam Vital Signs (past 8 hours): Oxygen Delivery Method Room Air Oxygen Flow Rate 0 Narrative Exam Narrative: Very pleasant gentleman in no obvious distress HEENT: Normocephalic atraumatic, sclerae anicteric, extraocular muscles are intact, no facial asymmetry, tongue is midline, neck is Lungs: Clear to auscultation Cardiac exam regular rate and rhythm normal S1-S2 Abdomen: Soft nontender nondistended Extremities: No edema Neuro exam: Cranial nerves 2-12 are intact patient does have some hesitancy with speaking, he has at times some expressive aphasia, Motor: No weakness in the upper lower extremity, sensation grossly intact reflexes are equal gait is within normal limits Objective Labs Result Diagrams: 09/11/19 13:30 09/11/19 13:30 Discharge Plan Discharge Plan Patient Disposition: Home Discharge orders & Medications Prescriptions: Continued Levemir FlexTouch U-100 Insuln 100 UNIT/1 ML insulin pen 50 unit SQ HS Qty: 0 RF: 0 fluticasone propion-salmeterol [Advair Diskus] 250 MCG/50 MCG blister with device 1 puff INH BID Qty: 0 RF: 0 albuterol sulfate [Ventolin HFA] 90 MCG/PUFF HFA aerosol inhaler 2 puff INH BID Qty: 0 RF: 0 omeprazole 20 MG capsule,delayed release(DR/EC) 40 mg PO QDAY Qty: 0 RF: 0 calcium carb,cit-mag cit,ox-D3 1 tab PO QDAY Qty: 0 RF: 0 insulin aspart U-100 [Novolog Flexpen U-100 Insulin] 100 UNIT/1 ML insulin pen 20 unit SQ TID Qty: 0 RF: 0 levothyroxine 150 mcg tablet 1 tab PO DAILY RF: 0 losartan 50 mg tablet 50 mg PO DAILY RF: 0 ropinirole 0.25 mg tablet 0.25 mg PO BEDTIME RF: 0 metformin 500 mg tablet extended release 24 hr 500 mg PO DAILY RF: 0 Follow up/Referrals: Varsha Hassan MD [Primary Care Provider] - Diet/Activity/Treatments Activity: as tolerated. Other treatments: Follow up with Dr. Sanchez for evaluation of spinal stenosis F/U with Dr. Mcclure regarding a referral to Neurology Visit Report/Discharge Packet Visit Report Forms: Patient Portal/API, Stroke Signs & Symptoms Discharge Data Primary Care Provider: Varsha Hassan Attending Provider: Honey Melgoza Admit Date/Time: 09/11/19 17:47 Discharges patient from system. Discharge Date/Time: 09/12/19 18:55 Quality VTE Deep Vein Thrombosis/Pulmonary Embolism Present on Admission: No
== END 2019-09-12 18:55 | disposition home or self-care (01) ==
LOC: ED 16:24 → AC 17:49 → ICU 18:31 → AC 09-12 13:52
PROVIDERS: Admitting Provider Internal Medicine; Emergency Provider Emergency Medicine; Family Provider Orthopaedic Surgery; PCP Internal Medicine; Referring Provider Emergency Medicine; Visit Provider Internal Medicine
DX: R47.81 Slurred speech (principal); R41.0 Disorientation, unspecified; R42 Dizziness and giddiness; M54.9 Dorsalgia, unspecified; I10 Essential (primary) hypertension; F17.210 Nicotine dependence, cigarettes, uncomplicated; M48.061 Spinal stenosis, lumbar region without neurogenic claudication; G25.81 Restless legs syndrome; K21.9 Gastro-esophageal reflux disease without esophagitis; J44.9 Chronic obstructive pulmonary disease, unspecified; Z98.890 Other specified postprocedural states; E11.40 Type 2 diabetes mellitus with diabetic neuropathy, unspecified; Z79.4 Long term (current) use of insulin
CPT/HCPCS: 36415; 70450; 70548; 70553; 80048; 80061; 80305; 81003; 81015; 82962; 83036; 85025; 85610; 85730; 92523; 93005; 93010; 93306; 94640; 94762; 96361; 96372; 96374; 96375; 97129; 97161; 97165; 99285; 99406; G0378; J1100; J1650

== ENCOUNTER → 2019-11-20 13:20 | Outpatient (CLI) | payer MEDICARE, OTHER, SELFPAY ==
[2019-11-21 23:31] LABS: COVID19 Sendout Not Detected (Not Detect)
== END ==
PROVIDERS: Family Provider Orthopaedic Surgery; PCP Internal Medicine; Visit Provider Physician Assistant
DX: Z11.59 Encounter for screening for other viral diseases (principal)
CPT/HCPCS: 87635

== ENCOUNTER 2019-11-23 06:11 | Inpatient (IN) | payer MEDICARE, OTHER, SELFPAY ==
[2019-11-16 08:42] VITALS: BMI 24.1
[2019-11-23] VITALS (15 sets, daily range): BP systolic 91–122; BP diastolic 49–69; PULSE 63–73; RESP 12–18; TEMP 35.7–37.1; O2SAT 92–98; BMI 24.1
--- NOTE | 2019-11-23 | DI.RAD.S_ITS ---
PROCEDURE: XR LUMBAR SPINE 2-3V INDICATIONS: L3-4 TLIF, L4-S1 HWR, L3-S1 PSF INSTRUMENTATION TECHNIQUE: 3 operative views of the lumbar spine were acquired. COMPARISON: [facility], MR, MR LUMBAR SPINE WO/W CON, 09/09/2019, 13:25. [facility], CR, XR LUMBAR SPINE 2 OR 3 VIEWS, 02/04/2018, 13:00. [facility], CR, L-SPINE 2-3 VIEWS, 12/30/2016, 8:59. FINDINGS: AP and lateral operative C-arm images demonstrate that the previous posterior lateral shanelle and pedicle screw fixation has been extended, and now extends 1 higher level superiorly. The lowest segment is no longer transfixed by the right shanelle. There is a screw fragment present on the right. The right shanelle transfixes 3 levels and the left shanelle transfixes 4 levels. IMPRESSION: Operative C-arm imaging utilized for lumbar fusion surgery. Dictated by: Yrn Hernández M.D. on 11/23/2019 at 11:44 Approved by: Yrn Hernández M.D. on 11/23/2019 at 11:49
[2019-11-23] MEDS: LACTATED RINGERS 1,000 ML 42 ML IV ×2 (07:10→09:46)
--- NOTE | 2019-11-23 07:42 | PM.PREOP ---
Pre-operative Note COVID-19 COVID-19 status: Negative Result date/Date tested (Pos, Neg/Pending): 11/23/19 Interval Note History & Physical reviewed/Exam performed by Physician: Yes Changes to H&P: No
[2019-11-23] MEDS: CLINDAMYCIN 600 MG/50 ML PIGGYBACK 50 MG IV ×2 (08:06→16:22)
--- NOTE | 2019-11-23 08:46 | SUR.OPER ---
Prone on spine table, head in foam head support, padded chest and pelvic supports, gel pad at knees, lower legs supported by pillows; nipples, genitalia and toes free of pressure, arms secured on foam padded arm boards at <90 degrees abduction. Tape over blanket at thigh secured to table.
[2019-11-23] MEDS: BUPIVACAINE 0.25% W/ EPI 30 ML VIAL INJ (08:57)
[2019-11-23] MEDS: BUPIVACAINE LIPOSOME 266 MG/20 ML VIAL INJ (08:57)
--- NOTE | 2019-11-23 11:41 | P.OP_ITS ---
Operative Date/Time/Diagnoses Date of procedure: 11/23/19 Time of procedure: 07:51 Pre-op diagnosis: 1. L3-4, L5-S1 spinal stenosis with radiculopathy 2. Hx of L4-5, L5-S1 fusion with instrumentation 3. L5-S1 hardware loosening Post-op diagnosis: same Procedure & Clinicians Procedure: 1. L3-4 posterolateral and posterior interbody fusion 2. L3-4 posterior interbody cage placement 3. L4-5, L5-S1 posterior segmental instrumentation removal 4. L4-5, L5-S1 revision laminectomy with exploration of fusion 5. L3-4, L4-5, L5-S1 posterior segmental instrumentation with pedicle screw placement 6. L5-S1 posterolatearl fusion 7. Osteen of bone marrow from iliac crest through a separate incision 8. Utilization of microsurgical technique and operating microscope Same procedure as scheduled: Yes Indications: Patient has been having chronic back pain and worsening lumbar radiculopathy. Patient had prior surgery with fusion at L4-S1 level. Patient has been doing well until the last 6 months with worsening symptoms of radiculopathy and neurogenic claudication. Patient has MRI showing significant spinal stenosis at L3-4 level with possible L5-S1 hardware loosening. Patient failed multiple conservative management with worsening pain weakness and numbness in her lower extremity. Patient has been having difficulty performing activity of daily living. After discussing risks benefits of treatment options, patient elected proceed with surgery. Surgeon: Cipriano Hammonds Carbide Tool Die Maker: Sola Rojas Click Yes if Unassisted: No Anesthesia Type: General Operative Notes Closure Type: primary Specimen(s): none sent Prosthetic devices, grafts, tissues, transplants, or devices: Globus revolve screws, Rise cage Applied: catheter Estimated Blood Loss (mL): 100 Blood products transfused: none Procedure in detail: Patient was seen in the preoperative area. Risks and benefits of the surgery was discussed with the patient. Informed consent was obtained from the patient and placed in the chart. Surgical site was marked. Patient was taken to the operative room. General anesthesia was administered. Prophylactic antibiotic was given to the patient less than 30 min before the incision was made. Patient was placed into a prone position on the Jered table. Patient's back was then prepped and draped in the sterile fashion. Time- out was performed at this time. Using patient's previous scar incision was made over the L3 to S1 interval on the left side. Fascia was incised in line with skin incision. Patient's previously placed hardware over the L4-S1 level was identified by dissecting down to the level the hardware using a Bovie and a Currie. The locking caps which was removed using globus screwdriver. The locking shanelle was then removed from the tulips of the pedicle screws using a Kelsey. The pedicle screws were then removed using the screwdriver. The Globus and MARS retractors was then placed into the wound and docked onto the L3 lamina using C-arm guidance. Using microsurgical technique and operating microscope a laminectomy facetectomy was performed by removing the L3 lamina and the L3-4 facet. Patient was found have severe central and neural foramen stenosis at L3-4 level which was fully decompressed after the laminectomy and facetectomy was completed. The disc space at L3-4 level was identified next. And a total diskectomy was performed at L3-4 level. The endplates were decorticated using a rasp and shaver. The total diskectomy and decortication was performed at L3-4 level in order to to accomplish a L3-4 fusion. The local bone from the laminectomy and facetectomy was saved for local bone grafting. After the total diskectomy and decortication was completed, Trifecta bone graft material was combined with local bone that was harvested earlier. At this time, a separate skin is incision was made over the iliac crest. A Jamshidi needle was inserted into the iliac crest through a separate skin incision. 5 cc of bone marrow aspiration was obtained through the separate skin incision using a Jamshidi needle from the iliac crest. The bone marrow aspiration was combined with local bone and the via cell bone grafting material. The bone grafting material was placed into the L3-4 interbody space along with a expandable cage. The cage was expanded to its maximum height using the torque limiting screwdriver. At this time a mirror image incision was made on the right side. The fascia was incised in line with the skin incision. Patient's previously placed hardware on the left side was then removed in the same fashion as it was on the left side. The screws were found to have good purchase with the exception of the right S1 pedicle screw. The right S1 pedicle screw was found to be broken at the hardware cortex junction. The distal/tip end of the screw was found to be fully embedded in the sacrum with no hardware protruding above the surfacet of the sacrum. The proximal and along with the shaft of the screw was easily removed from the wound without any difficulty. The fusion mass on the left side was exposed by performing a right-sided hemilaminectomy at L4-5 L5-S1 level. The hemilaminectomy was performed using the Kerrison rongeur to undercut the lamina as well removing additional epidural scar tissue for purpose of decompressing the epidural space. The fusion mass was explored and was found have visible motion indicating pseudoarthrosis at the L5-S1 level. The L4-5 level was found to be solidly fused. Globus MARS retractor was inserted and docked onto the L3- 4 and L5-S1 posterolateral gutter. Using the power drill, posterior-lateral decortication was performed at L3-4 and L5-S1 level until bleeding cortical bone was identified. The remaining bone grafting material was placed into the L3-4 and L5-S1 posterior lateral gutter he order to accomplish posterolateral fusion at the L3-4 and L5-S1 level. Using the double C-arm technique, pedicle screws were placed into the L3, L4 L5 and S1 pedicles bilaterally except the right S1 screw. The screw in S1 body was left as it is since the fusion is solid the the remaining hardware is stable and in a safe location. This was done by placing the Jamshidi needle into the pedicles, then placing the guidewires over the Jamshidi needle, and finally placing the cannulated screws over the guidewires bilaterally. After the pedicle screws were placed, 2 titanium rods was locked into the heads of the pedicle screws using locking caps and torque limiting screwdriver. After all the hardware was placed, and confirmed with AP and lateral C-arm imaging, the wound was then irrigated with sterile normal saline and packed with Ray-Jie gauze for 3 min to accomplish hemostasis. After the gauze was removed the deep fascia was closed with #1 Vicryl suture. The subcutaneous layer was closed with 2-0 Vicryl. The skin was closed with skin dior. Patient tolerated the procedure well. There were no complications. Complications: none Post-operative Condition: stable Disposition: PACU Plan for aftercare: Admit to inpatient hospital
[2019-11-23] MEDS: hydrOXYzine 50 MG/ML INJ IM (11:52)
[2019-11-23] MEDS: fentaNYL 100 MCG/2 ML INJ IV ×2 (11:53→12:00)
[2019-11-23] MEDS: HYDROCODONE/ACET 5/325 TABLET 1 TAB PO (12:02)
[2019-11-23] MEDS: HYDROMORPHONE 2 MG INJ IV ×3 (12:11→12:20)
[2019-11-23] MEDS: INSULIN ASPART 100 UNIT/ML INSULN PEN 10 UNIT SUBCUT (12:35)
--- NOTE | 2019-11-23 13:58 | PC.NURSE ---
Pt to room 204 via bed from PACU. Pt is very drowsy but rouses to voice and touch. O2 sat 95% on 3L. Pt answers questions appropriately. Back dressing inspected and is CDI. Oriented Pt to room, call light, bed controls, and tv controls. SCD's on and running. Pt states he is having pain to his back 5/10 but falls back to sleep almost immediately. Bed alarm on for safety and reminded Pt to call for assistance as needed and not to get up without staff assistance. Reminded Pt not to bend, lift or twist and to logroll in and out of bed.
[2019-11-23] MEDS: SODIUM CHLORIDE 0.9% 1,000 ML 100 ML IV (14:23)
[2019-11-23] MEDS: HYDROCODONE/ACET 5/325 TABLET 2 TAB PO ×2 (17:40→21:59)
[2019-11-23] MEDS: ALBUTEROL HFA 200 PUFF/18 GM INH (COVID POS/VENT PTS) INH (20:00)
[2019-11-23] MEDS: DOCUSATE 100 MG CAPSULE PO (21:58)
[2019-11-23] MEDS: METFORMIN XR 500 MG TABLET PO (21:58)
[2019-11-23] MEDS: ROPINIROLE 0.25 MG TABLET 0.5 MG PO (21:58)
[2019-11-23] MEDS: SENNOSIDES 8.6 MG TABLET 17.2 MG PO (21:58)
[2019-11-23] MEDS: INSULIN DETEMIR 100 UNIT/ML INSULN.PEN 30 UNIT SUBCUT (21:59)
[2019-11-24] VITALS (9 sets, daily range): BP systolic 115–146; BP diastolic 60–74; PULSE 73–88; RESP 13–19; TEMP 36.9–37.6; O2SAT 91–97
[2019-11-24] MEDS: CLINDAMYCIN 600 MG/50 ML PIGGYBACK 50 MG IV (00:37)
[2019-11-24] MEDS: SODIUM CHLORIDE 0.9% 1,000 ML 100 ML IV (00:38)
[2019-11-24] MEDS: HYDROCODONE/ACET 5/325 TABLET 2 TAB PO ×4 (04:14→21:11)
[2019-11-24] MEDS: PANTOPRAZOLE 40 MG TABLET PO (06:21)
[2019-11-24] MEDS: LEVOTHYROXINE 125 MCG TABLET PO (06:21)
[2019-11-24 06:28] LABS: Hematocrit 38.5 % (41-53); Hemoglobin 12.8 g/dL (13.5-17.5)
[2019-11-24] MEDS: FLUoxetine 20 MG CAPSULE 40 MG PO (08:12)
[2019-11-24] MEDS: METFORMIN XR 500 MG TABLET PO ×2 (08:12→21:11)
[2019-11-24] MEDS: LOSARTAN 50 MG TABLET PO (08:13)
[2019-11-24] MEDS: DOCUSATE 100 MG CAPSULE PO ×2 (08:15→21:11)
[2019-11-24] MEDS: INSULIN ASPART 100 UNIT/ML INSULN PEN 20 UNIT SUBCUT (08:17)
--- NOTE | 2019-11-24 08:36 | PM.PN.1 ---
Exam Vital Signs (past 8 hours): - 11/24/19 04:21 11/24/19 08:13 Temperature 99.3 F Pulse Rate 74 Respiratory Rate 18 Blood Pressure 146/64 H 122/74 Pulse Oximetry 97 Oxygen Delivery Method Nasal Cannula Oxygen Flow Rate 0 Objective Labs Result Diagrams: 11/24/19 06:15 Labs: Laboratory Results - last 24 hr 11/24/19 06:15 Hgb 12.8 L Hct 38.5 L Assessment & Plan Assessment & Plan narrative: POD#1 s/p L3-4 TLIF and L3-S1 PSF. Doing well. Neurovascularly intact. Will do PT/OT. Continue current medical/pain management. Will re-assess, possible d/c tomorrow to home. Quality VTE Deep Vein Thrombosis/Pulmonary Embolism Present on Admission: No
[2019-11-24] MEDS: ALBUTEROL HFA 200 PUFF/18 GM INH (COVID POS/VENT PTS) INH ×2 (10:45→19:54)
[2019-11-24] MEDS: FLUTICASONE/SALMETEROL 250/50 60 PUFF DISKUS INH ×2 (10:47→21:16)
--- NOTE | 2019-11-24 11:23 | PT.IIE ---
Current Diagnoses Other spondylosis with radiculopathy, lumbosacral region (11/23/19) Spinal stenosis, lumbar region with neurogenic claudication (11/23/19) Arthrodesis status (11/23/19) Surgery Performed Operation Date: 11/23/19 07:45 Actual Procedures p L3-4 TLIF, L4-S1 HWR, L3-S1 PSF Instrumentation(Not Applicable) - Cipriano Hammonds MD Surgical History (Last Updated 11/16/19 @ 09:26 by Keysha Burt RN) History of lumbar fusion (Acute 2017) History of repair of left rotator cuff (Acute) History of repair of right rotator cuff (Acute) History of vasectomy (Acute) Hx of arthroscopy of right knee (Acute) Hx of bilateral cataract extraction (Acute) Hx of fusion of cervical spine (Acute) Hx of lumbosacral spine surgery (Acute) Medical History (Last Updated 11/16/19 @ 09:55 by Keysha Burt RN) Melgoza's palsy (Acute) Cervical stenosis of spinal canal (Acute) Coma (Acute) Coma (Acute) COPD (chronic obstructive pulmonary disease) (Acute) Current every day smoker (Acute) Diabetes (Acute) GERD (gastroesophageal reflux disease) (Acute) [place] (hard of hearing) (Acute) Hypertension (Acute) Hypothyroid (Acute) Insomnia (Acute) Peripheral neuropathy (Acute) Polio (Acute) Pseudocholinesterase deficiency (Acute) PTSD (post-traumatic stress disorder) (Acute) RBBB (right bundle branch block) (Acute) RLS (restless legs syndrome) (Acute) Stable angina (Acute) Physical Therapy Inpatient Evaluation/Re-Eval M1 PT/OT-IP Prior Functional Status Start: 11/24/19 08:37 Freq: NEEDED Status: Active Protocol: Document 11/24/19 11:04 AW (Rec: 11/24/19 11:23 AW [id number]) Medical Review Prior Functional Status Medical History Reviewed Yes Communication Pt is an effective verbal communicator. He had a TIA in late August 2019 with symptoms of slurred speech and expressive aphasia. He did not seek outpatient speech therapy after that event and states he fully recovered. Mobility and Gait Pt has chronic low back pain but remains active, logging 15 -20,000 steps on his activity tracker daily. He has worn a lumbar brace nearly brazer induction to support increased activity. Activities of Daily Living and IADL's Independent with all ADL's. 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 Social History Household Members spouse Living Arrangements Mobile home Number of Floors (Floors) One Floor Number of Stairs To Enter/Railing? 6 short steps to enter with R rail ascending Home Environment High Toilet,Walk in Shower Home Equipment Straight Cane,Hand Held Shower ,Grab Bars In Shower Employment Status Retired Additional Social History Comment Pt is retired from the [employer]. 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 He lives with his , Daisy, in [place]. M2 PT-IP Current Condition Start: 11/24/19 08:37 Freq: NEEDED Status: Active Protocol: Document 11/24/19 11:04 AW (Rec: 11/24/19 11:23 AW [email or web address]) Physical Therapy Current Condition Current Condition Evaluation Date 11/24/19 Treatment Diagnosis L3-4 L4-5 L5-S1 TLIF; difficulty in walking Onset Date 11/23/19 Precautions Lumbar Precautions Log Roll,No Twisting,Limit Bending,Lifting Restriction of 10 lbs,Gait Belt above Incisional Area Brace pt typically wears a lumbar brace but is interested in mobilizing without it Other Precautions PTSD; prior head trauma M3 PT-IP Subjective Start: 11/24/19 08:37 Freq: NEEDED Status: Active Protocol: Document 11/24/19 11:04 AW (Rec: 11/24/19 11:23 AW [email or web address]) Subjective Physical Therapy Visit Type Type Initial Evaluation Visit Start Time 09:05 Visit Stop Time 09:30 Total Visit Minutes 25 Physical Therapy Visit Comments Patient Comments I'm feeling better than I though I would. Patient Goals Pt plans to discharge home with his 's assist. Therapy Pain Assessment Pain When Pain Assessed During Mobility Pain Present Pain Present Pain Reported Location Lower Back Intensity 4 Scale Used Numeric (0 - 10) Pain Management Techniques Distraction,Timing of Activity with Medications M4 PT-IP Mobility and Gait Start: 11/24/19 08:37 Freq: NEEDED Status: Active Protocol: Document 11/24/19 11:04 AW (Rec: 11/24/19 11:23 AW [email or web address]) PT-Bed Mobility Assessment Rolling Type of Rolling Log Rolling,Roll to Left Level of Assist Standby Assistance Supine to Sit Supine to Sit Standby Assistance Scooting Scooting to Edge of Bed Standby Assistance PT-Transfer Assessment Sit to and From Stand Sit to and from Stand Contact Guard Assistance,Use of Upper Extremities Equipment Transfer Assistive Device Gait Belt,Front Wheeled Walker Orthotic/Prosthetic Devices or Brace: No Transfers Transfer Destination Chair Transfer Technique pt ambulated without AD Transfer Ability Level of Assist Standby Assistance,Use of Upper Extremities Comments Mobility Comments Pt was reclined int he bed upon PT arrival. Supine BP 112 /54 HR 83. Pt completed log roll to his right side and SL to sit SBA without need for cues. Pt stood from the bed in lowest position CGA and proceeded to ambulate around the unit without AD CGA. Gait was unsteady with pt reaching for railing on the wall several times in first 50 feet , requiring CGA at all times. He ambulated a total of 200 feet without AD CGA. Steadiness improved with duration. Pt returned to the room and transferred to the chair SBA. He was positioned there with call light and all needs in reach. PT notified AUTOMATION TEST ENGINEER of need for chair alarm. Gait Assessment Gait Gait Assistance Required: Contact Guard Assist Distance (Feet) 200 Able to Maintain Weight Bearing Status Yes During Gait Assistive Devices Assistive Device Gait Belt Orthotic/Prosthetic Devices or Brace: No Gait Deviations General Gait Pattern Antalgic,Decreased Stride Length,Decreased Feet Clearance,Flexed Trunk,Lateral Trunk Lean,Wide Based Gait Factors Limiting Gait Function Factors Limiting Gait Function Decreased Activity Tolerance, Decreased Sensation,Decreased Strength,Incoordination, Limited Range of Motion,Pain, Poor Balance,Poor Safety Awareness Comments Gait Comments See mobility comments for details. Stair Climbing Assessment Evaluation Level of Assist On Stairs Standby Assistance Devices Stair Climbing Assistive Devices Right Railing Technique/Endurance Stair Climbing Direction Ascend and Descend Stair Climbing Technique Step Over Step,Step to Step Number of Steps Climbed 3 Query Text: Stair Climbing Set # Repetitions (reps) 1 Comments Stair Climbing Comments Pt was inconsistent with patterning but was safe using R rail with SBA. PT-Balance Assessment Sitting Balance and Reactions Static Sitting Balance Ability Normal Dynamic Sitting Balance Ability Normal Standing Balance and Reactions Static Standing Balance Ability Good Dynamic Standing Balance Ability Fair Device Used none M5 PT-IP Objective Assessments Start: 11/24/19 08:37 Freq: NEEDED Status: Active Protocol: Document 11/24/19 11:04 AW (Rec: 11/24/19 11:23 [email or web address]) Orientation Orientation/Cognition Level of Alertness Alert Orientation Name,Day of Week,Place, Situation Language Function Ability No Deficits Noted Safety Awareness Decreased Safety Awareness Memory Description No Deficits Noted Gross Range of Motion Upper Extremity ROM Assessment Within Functional Limits Lower Extremity ROM Assessment Within Functional Limits Strength Upper Extremity Strength Assessment Within Functional Limits Lower Extremity Strength Assessment Within Functional Limits Comments Strength Comments Grossly 4+/5 BLE Coordination Assessment Gross Coordination Gross Coordination WNL Sensation Assessment Sensation Gross Sensation Right UE Impaired,Left UE Impaired,Right LE Impaired, Left LE Impaired Comments Sensation Comments Pt reports history of diabetic neuropathy wtih numbness of bilateral feet and hands. Pt reports slight improvement in light touch sensation in feet following surgery. Muscle Tone Muscle Tone WNL Yes M6 PT-IP Treatment Start: 11/24/19 08:37 Freq: NEEDED Status: Active Protocol: Document 11/24/19 11:04 AW (Rec: 11/24/19 11:23 [email or web address]) Physical Therapy Treatment Education Education Provided Precautions,Weight Bearing Status,Post-Op Packet,Safety Other Treatments Other Treatment Performed Provided education on role of PT, plan of care, post op spinal precautions. Pt was able to teach back all precautions. M7 PT-IP Assessment and Plan Start: 11/24/19 08:37 Freq: NEEDED Status: Active Protocol: Document 11/24/19 11:04 AW (Rec: 11/24/19 11:23 [email or web address]) PT Summary Assessment and Plan Potential Rehabilitation Potential Good Status of Condition at Evaluation Stable Summary Impairments Pain,ROM,Strength,Balance, Sensation,Bed Mobility, Transfers,Gait,Activity Tolerance Assessment Summary Junior is a 74 yo man seen for PT evaluation on POD1 following multi level lumbar surgery. He is independent in all regards at baseline. He was seen here on September 11 following TIA like symptoms primarily affecting speech. His dynamic balance was assessed at that time with 4-item DGI on which he scored 8/12. Pt continues to present with impaired dynamic balance which appears to be baseline level for him. Will plan to trial gait with SPC at PM session. PT anticipates this pt will be safe to discharge to home environment once medically cleared. Goals Bed Mobility Goal Independent Transfer Goal Independent Gait Goal Independent,Cane Gait Distance 500 Other Goals - up/down 6 steps with R rail ascending IND Days to Meet Goals 3 Frequency of Treatment Frequency Of Treatment Twice a Day Treatment Plan Physical Therapy Treatment Plan Bed Mobility Training,Transfer Training,Gait Training, Therapeutic Exercise,Balance Retraining,Post Op Education, Discharge Planning,Hot or Cold Pack,Neuromuscular Re-ed Other Recommendations and Next Treatment gait training with FWW; review Focus precautions; stairs Recommendations To Nursing Amount of Assist Needed 1 Person Assist Discharge Recommendations PT Discharge Recommendations Home with Assistance, Outpatient PT Other Discharge Recommendations OP PT for balance Transportation Needs at Discharge Private Vehicle
--- NOTE | 2019-11-24 11:32 | OT.IP.EVAL ---
Current Diagnoses Other spondylosis with radiculopathy, lumbosacral region (11/23/19) Spinal stenosis, lumbar region with neurogenic claudication (11/23/19) Arthrodesis status (11/23/19) Surgery Performed Operation Date: 11/23/19 07:45 Actual Procedures p L3-4 TLIF, L4-S1 HWR, L3-S1 PSF Instrumentation(Not Applicable) - Cipriano Hammonds MD Past Medical History (Last Updated 11/16/19 @ 09:55 by Keysha Burt RN) Melgoza's palsy (Acute) Cervical stenosis of spinal canal (Acute) Coma (Acute) Coma (Acute) COPD (chronic obstructive pulmonary disease) (Acute) Current every day smoker (Acute) Diabetes (Acute) GERD (gastroesophageal reflux disease) (Acute) [place] (hard of hearing) (Acute) Hypertension (Acute) Hypothyroid (Acute) Insomnia (Acute) Peripheral neuropathy (Acute) Polio (Acute) Pseudocholinesterase deficiency (Acute) PTSD (post-traumatic stress disorder) (Acute) RBBB (right bundle branch block) (Acute) RLS (restless legs syndrome) (Acute) Stable angina (Acute) Surgical History (Last Updated 11/16/19 @ 09:26 by Keysha Burt RN) History of lumbar fusion (Acute 2017) History of repair of left rotator cuff (Acute) History of repair of right rotator cuff (Acute) History of vasectomy (Acute) Hx of arthroscopy of right knee (Acute) Hx of bilateral cataract extraction (Acute) Hx of fusion of cervical spine (Acute) Hx of lumbosacral spine surgery (Acute) Occupational Therapy Inpatient Evaluation/Re-Eval M1 PT/OT-IP Prior Functional Status Start: 11/24/19 16:58 Freq: NEEDED Status: Active Protocol: Document 11/24/19 11:02 [facility] (Rec: 11/24/19 17:24 [facility] [email or web address]) Medical Review Prior Functional Status Medical History Reviewed Yes Communication Pt is an effective verbal communicator. He had a TIA in late August 2019 with symptoms of slurred speech and expressive aphasia. He did not seek outpatient speech therapy after that event and states he fully recovered. Mobility and Gait Pt has chronic low back pain but remains active, logging 15 -20,000 steps on his activity tracker daily. He has worn a lumbar brace nearly radio time salesperson to support increased activity. Activities of Daily Living and IADL's Independent with all ADL's. 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 Social History Household Members spouse Living Arrangements Mobile home Number of Floors (Floors) One Floor Number of Stairs To Enter/Railing? 6 short steps to enter with R rail ascending Home Environment High Toilet,Walk in Shower Home Equipment Straight Cane,Hand Held Shower ,Grab Bars In Shower Employment Status Retired Additional Social History Comment Pt is retired from the [employer]. 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 He lives with his , Daisy, in [place]. M2 OT-IP Current Condition Start: 11/24/19 16:58 Freq: Status: Active Protocol: Document 11/24/19 11:02 [facility] (Rec: 11/24/19 17:24 [facility] [email or web address]) Occupational Therapy Current Condition Current Condition Evaluation Date 11/24/19 Treatment Diagnosis Spinal Stenosis s/p L3-4, L4-5 , L5-S1 TLIF Diagnosis Onset Date 11/23/19 Post Operative Precautions Lumbar Precautions Log Roll,No Twisting,Limit Bending,Lifting Restriction of 10 lbs,Gait Belt above Incisional Area M3 OT- IP Subjective and Pain Start: 11/24/19 16:58 Freq: Status: Active Protocol: Document 11/24/19 11:02 [facility] (Rec: 11/24/19 17:24 [facility] [email or web address]) OT- Subjective Occupational Therapy Visit Type Type Initial Evaluation Visit Start Time 11:02 Visit Stop Time 11:32 Total Visit Minutes 30 Occupational Therapy Visit Comments Patient Comments Pt agreed to do OT eval and already up sitting the recliner when OT arrived. Patient/Caregiver Goals To go home. OT Pain Assessment Pain When Pain Assessed At Rest Pain Present Pain Present Pain Reported Location Lower Back Intensity 4 Scale Used Numeric (0 - 10) M4 OT- IP ADL's Start: 11/24/19 16:58 Freq: Status: Active Protocol: Document 11/24/19 11:02 [facility] (Rec: 11/24/19 17:24 [facility] [email or web address]) OT [id number] Comments OT Self-Feeding Comments NOt at meal time. OT ADL-Grooming Comments OT Grooming Comments Educated to bend at his hips or just spit into a cup to best follow back precautions. OT ADL-Dressing General Eval Lower Body Dressing Ability Maximum Assistance Areas Needing Assistance Socks Comments OT Dressing Comments Able to practice with resistor winder and socks aid to best follow back precautions as currently not able to comfortably cross his legs over in order to do LB dressing needs due to pain from recent back surgery. OT ADL-Toileting General Evaluation Toileting Ability Standby Assistance Comments OT Toileting Comments Pt able to comfortable reach underneath in order to be able to appropriately do hygiene needs and follow back precautions. OT ADL-Bathing Comments OT Bathing Comments Not at this time. Recommended a shower chair would be beneficial to use for showering needs. M5 OT- IP IADL's Start: 11/24/19 16:58 Freq: Status: Active Protocol: Document 11/24/19 11:02 [facility] (Rec: 11/24/19 17:24 [facility] [email or web address]) OT-Instrumental Activities of Daily Living Home Safety Awareness Home Safety Comments Pt a impulsive and forgetful at times and would be best to have assist with his needs at home. Medication Management Medication Management Caregiver Provides Supervision Money Management Money Management Caregiver Provides Assistance Meal Preparation Meal Preparation Caregiver Provides Assist Freight Router Freight Router Caregiver Provides Assist M6 OT- IP Functional Cognition Start: 11/24/19 16:58 Freq: Status: Active Protocol: Document 11/24/19 11:02 [facility] (Rec: 11/24/19 17:24 [facility] [email or web address]) Cognitive Factors Limiting Selfcare Function Cognitive Ability Level of Alertness Alert Patient Orientation Name,Place,Situation Attention Span Ability Capable of Focused Attention, Capable of Sustained Attention Ability to Follow Commands Able to Follow One Step Commands Safety Awareness Underestimates Need for Assistance Cognitive Comments Cognitive Assessment Comments Pt a little impulsive and not wanting to use the FWW but states may be open to use of SPC. OT- Vision and Hearing OT- Hearing Assessment OT- Hearing Assessment Hearing Impaired OT- Vision Assessment Visual Acuity Glasses All The Time M7 OT- IP Mobility and Balance Start: 11/24/19 16:58 Freq: Status: Active Protocol: Document 11/24/19 11:02 [facility] (Rec: 11/24/19 17:24 [facility] [email or web address]) OT- Bed Mobility Assessment Sit to Supine Sit to Supine Assist Standby Assistance OT-Transfer Assessment Sit to and From Stand Sit to and from Stand Standby Assistance Transfers Transfer Ability Contact Guard Assistance Technique Transfer Destination Bed,Chair,Toilet Transfer Technique Stand Step Pivot Devices Transfer Assistive Devices None,Gait Belt,Front Wheeled Walker Comments Mobility Comments Pt SBA with FWW, CGA without device with transfer from recliner to bed and a little unsteady on his feet. PT to try pt with SPC later. OT- Balance Assessment Sitting Balance and Reactions Static Sitting Balance Ability Normal Dynamic Sitting Balance Ability Good Standing Balance and Reactions Static Standing Balance Ability Fair M8 OT- IP Objective Assessments Start: 11/24/19 16:58 Freq: Status: Active Protocol: Document 11/24/19 11:02 [facility] (Rec: 11/24/19 17:24 [facility] [email or web address]) OT-Muscle Tone Assessment Muscle Tone WNL Yes M9 OT- IP Assessment and Plan Start: 11/24/19 16:58 Freq: Status: Active Protocol: Document 11/24/19 11:02 [facility] (Rec: 11/24/19 17:24 [facility] [email or web address]) OT Summary Assessment and Plan Potential Rehabilitation Potential Good Analytic Complexity at Evaluation Low Summary OT Impairments Pain,Balance,Functional Mobility,Grooming,Dressing, Toileting,Bathing,Toilet Transfers,Shower Transfers, Activity Tolerance Progress Towards Goals Progressing Toward Goals,Slow Progress due to Pain Assessment Summary Pt low complexity and s/p L3-4 , L4-5, L5-S1 TLIF and main barriers are steps, a little impulsive and now needing one person assist for ADL and functional mobility needs. Pt looking to go home tomorrow and OT to continue caregiver training with his . Pt issued a sock aid. Goals Grooming Goal Independent Dressing Goal Independent Toileting Goal Independent Bathing Goal Independent Toilet Transfer Goal Independent Shower Transfer Goal Independent Patient/Caregiver Education Goal Demonstrate Post-Op Precautions,Caregiver Independent Assisting Patient Days to Meet Goals 3 Frequency of Treatment Frequency Of Treatment Once a Day Treatment Plan OT Treatment Plan ADL Training,Functional Cognition Training,Functional Mobility,Patient/Family Education,Discharge Planning Other Treatment Recommendations and Next Shower Treatment Focus Discharge Recommendations OT Discharge Recommendations Home with Assistance Home Equipment Needs Shower aid Transportation Needs at Discharge Private Vehicle
--- NOTE | 2019-11-24 14:15 | PT.IPTN ---
Current Diagnoses Other spondylosis with radiculopathy, lumbosacral region (11/23/19) Spinal stenosis, lumbar region with neurogenic claudication (11/23/19) Arthrodesis status (11/23/19) Surgery Performed Operation Date: 11/23/19 07:45 Actual Procedures p L3-4 TLIF, L4-S1 HWR, L3-S1 PSF Instrumentation(Not Applicable) - Cipriano Hammonds MD Physical Therapy Treatment Note M2 PT-IP Current Condition Start: 11/24/19 08:37 Freq: NEEDED Status: Active Protocol: Document 11/24/19 11:04 AW (Rec: 11/24/19 11:23 AW [id number]) Physical Therapy Current Condition Current Condition Evaluation Date 11/24/19 Treatment Diagnosis L3-4 L4-5 L5-S1 TLIF; difficulty in walking Onset Date 11/23/19 Precautions Lumbar Precautions Log Roll,No Twisting,Limit Bending,Lifting Restriction of 10 lbs,Gait Belt above Incisional Area Brace pt typically wears a lumbar brace but is interested in mobilizing without it Other Precautions PTSD; prior head trauma M3 PT-IP Subjective Start: 11/24/19 08:37 Freq: NEEDED Status: Active Protocol: Document 11/24/19 13:58 KS (Rec: 11/24/19 16:20 KS [id number]) Subjective Physical Therapy Visit Type Type Treatment Note Visit Start Time 13:58 Visit Stop Time 14:15 Total Visit Minutes 17 Number of HANG GLIDING INSTRUCTOR Visits 1 Physical Therapy Visit Comments Patient Goals Pt plans to discharge home with his 's assist. Therapy Pain Assessment Pain When Pain Assessed During Mobility Pain Present Pain Present Pain Reported Location Lower Back Intensity 4 Scale Used Numeric (0 - 10) Pain Management Techniques Distraction,Timing of Activity with Medications M4 PT-IP Mobility and Gait Start: 11/24/19 08:37 Freq: NEEDED Status: Active Protocol: Document 11/24/19 13:58 KS (Rec: 11/24/19 16:20 KS [id number]) PT-Bed Mobility Assessment Rolling Type of Rolling Log Rolling,Roll to Left Level of Assist Standby Assistance Supine to Sit Supine to Sit Standby Assistance Scooting Scooting to Edge of Bed Standby Assistance PT-Transfer Assessment Sit to and From Stand Sit to and from Stand Contact Guard Assistance,Use of Upper Extremities Equipment Transfer Assistive Device Gait Belt,Straight Cane Orthotic/Prosthetic Devices or Brace: No Transfers Transfer Destination Bed Transfer Technique Pt ambulated w/ SPC Transfer Ability Level of Assist Standby Assistance,Use of Upper Extremities Comments Mobility Comments Pt in bed upon arrival from therapy. SBA for logroll to L, sidelying to sit, and scooting to EOB. CGA and use of UE for sit<>stand w/ SPC. Pt then ambulated ~220 ft and completed 3 steps x2 w/ R rail and SPC all CGA w/ cues to avoid post lean and stair sequencing. Pt returned to bed CGA and positioned in bed w/ all needs in reach . Gait Assessment Gait Gait Assistance Required: Contact Guard Assist Distance (Feet) 220 Able to Maintain Weight Bearing Status Yes During Gait Assistive Devices Assistive Device Gait Belt,Straight Cane Orthotic/Prosthetic Devices or Brace: No Gait Deviations General Gait Pattern Antalgic,Decreased Stride Length,Decreased Feet Clearance,Flexed Trunk,Lateral Trunk Lean,Wide Based Gait Factors Limiting Gait Function Factors Limiting Gait Function Decreased Activity Tolerance, Decreased Sensation,Decreased Strength,Incoordination, Limited Range of Motion,Pain, Poor Balance,Poor Safety Awareness Comments Gait Comments Pt ambulated ~220 total feet w / SPC and CGA and BLURB WRITER during last ~50 ft of ambulation. Pt has post lean while ambulating , but is able to correct w/ Min cues. Pt states his post lean is d/t back brace that he commonly wears when ambulating. Stair Climbing Assessment Evaluation Level of Assist On Stairs Standby Assistance Devices Stair Climbing Assistive Devices Right Railing Technique/Endurance Stair Climbing Direction Ascend and Descend Stair Climbing Technique Step Over Step,Step to Step Number of Steps Climbed 3 Stair Climbing Set # Repetitions (reps) 2 Comments Stair Climbing Comments Pt completed 3 steps x2 w/ step over step and R rail CGA. PT-Balance Assessment Sitting Balance and Reactions Static Sitting Balance Ability Normal Dynamic Sitting Balance Ability Normal Standing Balance and Reactions Static Standing Balance Ability Good Dynamic Standing Balance Ability Fair Device Used none M5 PT-IP Objective Assessments Start: 11/24/19 08:37 Freq: NEEDED Status: Active Protocol: Document 11/24/19 11:04 AW (Rec: 11/24/19 11:23 AW [id number]) Orientation Orientation/Cognition Level of Alertness Alert Orientation Name,Day of Week,Place, Situation Language Function Ability No Deficits Noted Safety Awareness Decreased Safety Awareness Memory Description No Deficits Noted Gross Range of Motion Upper Extremity ROM Assessment Within Functional Limits Lower Extremity ROM Assessment Within Functional Limits Strength Upper Extremity Strength Assessment Within Functional Limits Lower Extremity Strength Assessment Within Functional Limits Comments Strength Comments Grossly 4+/5 BLE Coordination Assessment Gross Coordination Gross Coordination WNL Sensation Assessment Sensation Gross Sensation Right UE Impaired,Left UE Impaired,Right LE Impaired, Left LE Impaired Comments Sensation Comments Pt reports history of diabetic neuropathy with numbness of bilateral feet and hands. Pt reports slight improvement in light touch sensation in feet following surgery. Muscle Tone Muscle Tone WNL Yes M6 PT-IP Treatment Start: 11/24/19 08:37 Freq: NEEDED Status: Active Protocol: Document 11/24/19 13:58 KS (Rec: 11/24/19 16:20 ND [id number]) Physical Therapy Treatment Education Education Provided Precautions,Weight Bearing Status,Post-Op Packet,Safety M7 PT-IP Assessment and Plan Start: 11/24/19 08:37 Freq: NEEDED Status: Active Protocol: Document 11/24/19 13:58 KS (Rec: 11/24/19 16:20 ND [id number]) PT Summary Assessment and Plan Potential Rehabilitation Potential Good Status of Condition at Evaluation Stable Summary Impairments Pain,ROM,Strength,Balance, Sensation,Bed Mobility, Transfers,Gait,Activity Tolerance Progress Towards Goals Progressing Toward Goals Assessment Summary Pt is doing well adhering to precautions and performing logroll correctly. Pt CGA for sit<>stand w/ SPC and stairs, CGA w/ BLURB WRITER for ambulation. Pt has slight posterior lean when ambulating, but is able to correct w/ cues. He will benefit from continued rehab to improve ambulation and stairs and outpatient therapy to improve balance. Goals Bed Mobility Goal Independent Transfer Goal Independent Gait Goal Independent,Cane Gait Distance 500 Other Goals - up/down 6 steps with R rail ascending IND Days to Meet Goals 3 Frequency of Treatment Frequency Of Treatment Twice a Day Treatment Plan Physical Therapy Treatment Plan Bed Mobility Training,Transfer Training,Gait Training, Therapeutic Exercise,Balance Retraining,Post Op Education, Discharge Planning,Hot or Cold Pack,Neuromuscular Re-ed Other Recommendations and Next Treatment gait training with FWW; review Focus precautions; stairs Recommendations To Nursing Amount of Assist Needed 1 Person Assist Discharge Recommendations PT Discharge Recommendations Home with Assistance, Outpatient PT Other Discharge Recommendations OP PT for balance Transportation Needs at Discharge Private Vehicle
--- NOTE | 2019-11-24 15:19 | CM.IDA ---
Addendum entered by GINA Alvarez 11/25/19 15:27: Therapy team recommending home upon DC and patient eager to do so when medically cleared. No needs from this PATROL OFFICER at this time, will continue to follow along. BETZY Original Note: Initial DCP Assessment Note Pt is a 74 yo male, resident of [place], now POD#1 from spinal surgery w/ Dr Hammonds PCP: Dorothy Jackson Payer: [facility] Reviewed chart, pt discussed in multidisciplinary rounds this morning. Therapy has cleared pt for return home w/family to assist and pt has planned for home, DC order from Ortho expected over the next 24-48 hrs. No needs expected from DC planning team although will remain available in case this changes . GINA Alvarez
[2019-11-24] MEDS: SENNOSIDES 8.6 MG TABLET 17.2 MG PO (21:11)
[2019-11-24] MEDS: ROPINIROLE 0.25 MG TABLET 0.5 MG PO (21:11)
[2019-11-24] MEDS: INSULIN DETEMIR 100 UNIT/ML INSULN.PEN 30 UNIT SUBCUT (21:12)
[2019-11-25 02:20] VITALS: PULSE 85; O2SAT 92
[2019-11-25] MEDS: HYDROCODONE/ACET 5/325 TABLET 2 TAB PO ×2 (02:35→09:47)
[2019-11-25 02:39] VITALS: O2SAT 93
[2019-11-25] MEDS: PANTOPRAZOLE 40 MG TABLET PO (06:02)
[2019-11-25] MEDS: LEVOTHYROXINE 125 MCG TABLET PO (06:02)
[2019-11-25 07:15] VITALS: BP 126/74; PULSE 77; RESP 18; TEMP 36.5; O2SAT 91
--- NOTE | 2019-11-25 07:33 | PM.DS.1 ---
History of Present Illness History of Present Illness Date Patient Seen: 11/25/19 Time Patient Seen: 07:34 Chief complaint: INPT Narrative: Patient is a 74-year-old male that has a history of low back pain. He underwent surgery with Dr. Hammonds on 11/22/2019 POD#2 s/p L3-4 TLIF and L3-S1 PSF. Discharge Providers Provider Date of admission: 11/23/19 06:11 Discharge Date: 11/25/19 Primary care physician: Dorothy Jackson Consults: 11/23/19 07:22 Consult to Respiratory Therapy Evaluate & Treat Comment: Physician Instructions: Evaluate and treat 11/23/19 13:37 Consult to Occupational Therapy Evaluate & Treat Comment: Physician Instructions: Evaluate and treat Consult to Physical Therapy Evaluate & Treat Comment: Physician Instructions: Evaluate and Treat Discharge provider: Cyndy Oliver MD Summary Hospital Course Discharge Diagnosis: Lumbar canal stenosis Hospital Course: Patient was admitted to the hospital postoperatively s/p L3-4 TLIF and L3-S1 PSF with Dr. Hammonds. He was on the floor. Tolerated a p.o. diet. He mobilized with physical therapy and occupational therapy. And on postoperative day 2 was appropriate for home discharge with assistance and pain was controlled. Status at Discharge Cognitive/behavioral status at discharge: oriented Functional status at discharge: uses cane/walker Overall status at discharge: patient is progressing back to baseline Time Spent with Patient Time spent: Less than 30 minutes Exam Vital Signs (past 8 hours): - 11/24/19 23:55 11/25/19 02:20 11/25/19 02:39 Temperature 99.6 F Pulse Rate 87 85 Respiratory Rate 18 Blood Pressure 123/69 Pulse Oximetry 91 92 93 Oxygen Delivery Method Room Air Oxygen Flow Rate 0 Narrative Exam Narrative: General exam alert oriented male no acute distress lying in bed. HEENT exam normocephalic atraumatic Respiratory exam unlabored on room air CV exam regular rate and rhythm Back exam has dressing in place. Minimal scant drainage on the dressing. No erythema or redness. Musculoskeletal exam demonstrates dorsiflexion plantar flexion bilateral ankles. Calves are soft. Able to mobilize himself to the edge of the bed Objective Labs Result Diagrams: 11/24/19 06:15 Discharge Assessment & Plan Assessment and Plan Assessment: POD#2 s/p L3-4 TLIF and L3-S1 PSF.Status post posterior spinal fusion with Dr. Hammonds. He is on postop day 2. He is doing well he is mobilized with physical therapy and occupational therapy. Cleared for home with a cyst. This pain is controlled. Plan discharge home today. Follow-up with Dr. Hammonds as scheduled in 2 weeks. Keep and dressing clean dry and intact Plan of Treatment: Mobilized. Limit bending lifting and twisting no no lifting greater than 10 lb. Follow up in 2 weeks. Keep incisions clean dry and intact. Discharge Plan Discharge Plan Patient Disposition: Home Discharge orders & Medications Prescriptions: New hydrocodone-acetaminophen 5-325 mg Tablet 1 - 2 tab PO Q4-5H PRN (Reason: Pain, Severe (7-10)) Qty: 70 RF: 0 hydroxyzine pamoate 25 mg Capsule 25 mg PO Q6-12H PRN (Reason: Nausea And Vomiting) Qty: 40 RF: 0 Continued Levemir FlexTouch U-100 Insuln 100 UNIT/1 ML insulin pen 30 unit SQ HS Qty: 0 RF: 0 fluticasone propion-salmeterol [Advair Diskus] 250 MCG/50 MCG blister with device 1 puff INH BID Qty: 0 RF: 0 albuterol sulfate [Ventolin HFA] 90 MCG/PUFF HFA aerosol inhaler 2 puff INH BID Qty: 0 RF: 0 omeprazole 20 MG capsule,delayed release(DR/EC) 40 mg PO QDAY Qty: 0 RF: 0 calcium carb,cit-mag cit,ox-D3 1 tab PO QDAY Qty: 0 RF: 0 insulin aspart U-100 [Novolog Flexpen U-100 Insulin] 100 UNIT/1 ML insulin pen 20 unit SQ QAM Qty: 0 RF: 0 levothyroxine 150 mcg tablet 125 mcg PO DAILY RF: 0 losartan 50 mg tablet 50 mg PO DAILY RF: 0 ropinirole 0.25 mg tablet 0.5 mg PO BEDTIME RF: 0 metformin 500 mg tablet extended release 24 hr 500 mg PO BID RF: 0 fluoxetine 40 mg Capsule 40 mg PO DAILY RF: 0 Follow up/Referrals: Dorothy Jackson [Primary Care Provider] - Diet/Activity/Treatments Diet: Diet as Tolerated and Regular Activity: Limit bending twisting and lifting Skin/Wound/Dressing Care Report to your healthcare provider any signs of infection, such as:: chills, fever, night sweats, increased pain, unusual drainage and unusual redness Dressing: Keep dressing clean dry intact Visit Report/Discharge Packet Instructions: DI for Prescription Opioid Use, DI for Transforaminal Lumbar Interbody Fusion Stand Alone Forms: Surgery Discharge Discharge Data Primary Care Provider: Dorothy Jackson VTE Deep Vein Thrombosis/Pulmonary Embolism Present on Admission: No
--- NOTE | 2019-11-25 09:17 | OT.IP.TRT ---
Current Diagnoses Other spondylosis with radiculopathy, lumbosacral region (11/23/19) Spinal stenosis, lumbar region with neurogenic claudication (11/23/19) Arthrodesis status (11/23/19) Surgery Performed Operation Date: 11/23/19 07:45 Actual Procedures p L3-4 TLIF, L4-S1 HWR, L3-S1 PSF Instrumentation(Not Applicable) - Cipriano Hammonds MD Occupational Therapy Treatment Note M2 OT-IP Current Condition Start: 11/24/19 16:58 Freq: Status: Active Protocol: Document 11/24/19 11:02 [facility] (Rec: 11/24/19 17:24 [facility] [id number]) Occupational Therapy Current Condition Current Condition Evaluation Date 11/24/19 Treatment Diagnosis Spinal Stenosis s/p L3-4, L4-5 , L5-S1 TLIF Diagnosis Onset Date 11/23/19 Post Operative Precautions Lumbar Precautions Log Roll,No Twisting,Limit Bending,Lifting Restriction of 10 lbs,Gait Belt above Incisional Area M3 OT- IP Subjective and Pain Start: 11/24/19 16:58 Freq: Status: Active Protocol: Document 11/25/19 09:18 [facility] (Rec: 11/25/19 09:26 [facility] [id number]) OT- Subjective Occupational Therapy Visit Type Type Treatment Note Visit Start Time 08:38 Visit Stop Time 09:17 Total Visit Minutes 39 Occupational Therapy Visit Comments Patient Comments Pt wanting to shower. Patient/Caregiver Goals To go home. OT Pain Assessment Pain When Pain Assessed During Mobility Pain Present Pain Present Pain Reported Location Lower Back Intensity 4 Scale Used Numeric (0 - 10) M4 OT- IP ADL's Start: 11/24/19 16:58 Freq: Status: Active Protocol: Document 11/25/19 09:18 [facility] (Rec: 11/25/19 09:26 [facility] [id number]) OT ADL-Grooming Comments OT Grooming Comments NOt performed. OT ADL-Dressing General Eval Upper Body Dressing Ability Independent Lower Body Dressing Ability Moderate Assistance Comments OT Dressing Comments Pt needing assist to get socks over his toes initially, and also for shorts. Pt will assist as needed at home. OT ADL-Bathing Bathing Type Bathing Type Shower General Evaluation Bathing Ability Minimal Assistance Areas Needing Assistance Wash/Dry Back Comments OT Bathing Comments Pt agrees after shower that he will need a shower chair at home. Pt just needing assist for his back and CGA while standing and use of grab bars to wash his pericare area. M6 OT- IP Functional Cognition Start: 11/24/19 16:58 Freq: Status: Active Protocol: Document 11/25/19 09:18 [facility] (Rec: 11/25/19 09:26 [facility] [id number]) Cognitive Factors Limiting Selfcare Function Cognitive Ability Level of Alertness Alert Patient Orientation Name,Place,Situation Attention Span Ability Capable of Focused Attention, Capable of Sustained Attention Ability to Follow Commands Able to Follow One Step Commands Safety Awareness Underestimates Need for Assistance Cognitive Comments Cognitive Assessment Comments VC for safety to sit while drying off. Pt not wanting to use the FWW on the way back from the shower and needing close SBA/CGA to walk to the recliner. OT- Vision and Hearing OT- Hearing Assessment OT- Hearing Assessment Hearing Impaired,Use of Hearing Aids M7 OT- IP Mobility and Balance Start: 11/24/19 16:58 Freq: Status: Active Protocol: Document 11/25/19 09:18 [facility] (Rec: 11/25/19 09:26 [facility] [id number]) OT-Transfer Assessment Sit to and From Stand Sit to and from Stand Standby Assistance Transfers Transfer Ability Standby Assistance,Contact Guard Assistance Technique Transfer Destination Bed,Chair,Shower Stall Devices Transfer Assistive Devices None,Gait Belt,Front Wheeled Walker Comments Mobility Comments Distant SBA with a FWW, CGA without the FWW. OT- Balance Assessment Sitting Balance and Reactions Static Sitting Balance Ability Normal Dynamic Sitting Balance Ability Normal Standing Balance and Reactions Static Standing Balance Ability Good M8 OT- IP Objective Assessments Start: 11/24/19 16:58 Freq: Status: Active Protocol: Document 11/24/19 11:02 [facility] (Rec: 11/24/19 17:24 [facility] [id number]) OT-Muscle Tone Assessment Muscle Tone WNL Yes M9 OT- IP Assessment and Plan Start: 11/24/19 16:58 Freq: Status: Active Protocol: Document 11/25/19 09:18 [facility] (Rec: 11/25/19 09:26 [facility] [id number]) OT Summary Assessment and Plan Potential Rehabilitation Potential Good Analytic Complexity at Evaluation Low Summary OT Impairments Pain,Balance,Functional Mobility,Grooming,Dressing, Toileting,Bathing,Toilet Transfers,Shower Transfers, Activity Tolerance Progress Towards Goals Progressing Toward Goals Assessment Summary Pt able to tolerate a shower today and just needing occasional cues for safety. Pt's to be home to assist pt as needed. Encourage pt to use FWW/SPC at home initially as still unsteady on his feet, questionable whether pt will adhere to the suggestion for safety. Goals Days to Meet Goals 1 Frequency of Treatment Frequency Of Treatment Once a Day Treatment Plan OT Treatment Plan ADL Training,Functional Cognition Training,Functional Mobility,Patient/Family Education,Discharge Planning Discharge Recommendations OT Discharge Recommendations Home with Assistance Home Equipment Needs Shower chair Transportation Needs at Discharge Private Vehicle
[2019-11-25] MEDS: FLUTICASONE/SALMETEROL 250/50 60 PUFF DISKUS INH (09:25)
[2019-11-25] MEDS: ALBUTEROL HFA 200 PUFF/18 GM INH (COVID POS/VENT PTS) INH ×2 (09:25→09:41)
[2019-11-25 09:42] VITALS: PULSE 80; RESP 17; O2SAT 94
[2019-11-25 09:47] VITALS: BP 131/72; PULSE 80
[2019-11-25] MEDS: FLUoxetine 20 MG CAPSULE 40 MG PO (09:47)
[2019-11-25] MEDS: DOCUSATE 100 MG CAPSULE PO (09:47)
[2019-11-25] MEDS: LOSARTAN 50 MG TABLET PO (09:47)
[2019-11-25] MEDS: METFORMIN XR 500 MG TABLET PO (09:51)
--- NOTE | 2019-11-25 10:27 | PC.NURSE ---
Day shift note: Patient ambulating in room, SBA. Had shower with OT this am. Using precautions for TLIF. Discharge instructions given to patient and , discussed importance of F/U with Ortho, s/sx of infection, TLIF restrictions, and new medication. Both verbalized understanding of instructions. Discharge home with via private vehicle.
--- NOTE | 2019-11-25 10:52 | PT.IPTN ---
Current Diagnoses Other spondylosis with radiculopathy, lumbosacral region (11/23/19) Spinal stenosis, lumbar region with neurogenic claudication (11/23/19) Arthrodesis status (11/23/19) Surgery Performed Operation Date: 11/23/19 07:45 Actual Procedures p L3-4 TLIF, L4-S1 HWR, L3-S1 PSF Instrumentation(Not Applicable) - Cipriano Hammonds MD Physical Therapy Treatment Note M2 PT-IP Current Condition Start: 11/24/19 08:37 Freq: NEEDED Status: Discharge Protocol: Document 11/24/19 11:04 AW (Rec: 11/24/19 11:23 AW [id number]) Physical Therapy Current Condition Current Condition Evaluation Date 11/24/19 Treatment Diagnosis L3-4 L4-5 L5-S1 TLIF; difficulty in walking Onset Date 11/23/19 Precautions Lumbar Precautions Log Roll,No Twisting,Limit Bending,Lifting Restriction of 10 lbs,Gait Belt above Incisional Area Brace pt typically wears a lumbar brace but is interested in mobilizing without it Other Precautions PTSD; prior head trauma M3 PT-IP Subjective Start: 11/24/19 08:37 Freq: NEEDED Status: Discharge Protocol: Document 11/25/19 10:36 KS (Rec: 11/25/19 12:20 KS [id number]) Subjective Physical Therapy Visit Type Type Treatment Note Visit Start Time 10:36 Visit Stop Time 10:52 Total Visit Minutes 16 Number of PARTS CLASSIFIER Visits 2 Physical Therapy Visit Comments Patient Goals Pt plans to discharge home with his 's assist. Therapy Pain Assessment Pain When Pain Assessed During Mobility Pain Present Pain Present Denied Pain M4 PT-IP Mobility and Gait Start: 11/24/19 08:37 Freq: NEEDED Status: Discharge Protocol: Document 11/25/19 10:36 KS (Rec: 11/25/19 12:20 KS [id number]) PT-Bed Mobility Assessment Scooting Scooting to Edge of Bed Standby Assistance PT-Transfer Assessment Sit to and From Stand Sit to and from Stand Standby Assistance,Use of Upper Extremities Equipment Transfer Assistive Device None,Gait Belt Orthotic/Prosthetic Devices or Brace: No Transfers Transfer Destination Chair Transfer Technique Pt ambulated w/o AD Transfer Ability Level of Assist Standby Assistance,Use of Upper Extremities Comments Mobility Comments Pt in chair upon arrival from therapy w/ in room. Demonstrated proper application of gait belt to pts . Pt SBA for scooting to EOC and sit<>stand w/ use of BUE w/o AD. Pt able to recall all spinal precautions and adheres consistently. Pt then ambulated ~200 ft w/ gait belt and CGA and completed 3 steps w/ R rail. Pt ambulated w/ slight posterior lean and occasionally reaches for bed frame or counter top for balance when ambulating in room. Explained to pt he should be using SPC at home and he stated he agrees. Pt returned to chair w/ all needs in reach and has outpatient rehab set up beginning at the end of the month to improve balance and mobility. Gait Assessment Gait Gait Assistance Required: Contact Guard Assist Distance (Feet) 200 Able to Maintain Weight Bearing Status Yes During Gait Assistive Devices Assistive Device None,Gait Belt Orthotic/Prosthetic Devices or Brace: No Gait Deviations General Gait Pattern Antalgic,Decreased Stride Length,Decreased Feet Clearance,Flexed Trunk,Lateral Trunk Lean,Wide Based Gait Factors Limiting Gait Function Factors Limiting Gait Function Decreased Activity Tolerance, Decreased Sensation,Decreased Strength,Incoordination, Limited Range of Motion,Pain, Poor Balance,Poor Safety Awareness Comments Gait Comments Please refer to mobility section for details. Stair Climbing Assessment Evaluation Level of Assist On Stairs Standby Assistance Devices Stair Climbing Assistive Devices Right Railing Technique/Endurance Stair Climbing Direction Ascend and Descend Stair Climbing Technique Step Over Step Number of Steps Climbed 3 Stair Climbing Set # Repetitions (reps) 1 Comments Stair Climbing Comments Pt ascended/descended 3 steps w/ CGA and R rail and step over step pattern. PT-Balance Assessment Sitting Balance and Reactions Static Sitting Balance Ability Normal Dynamic Sitting Balance Ability Normal Standing Balance and Reactions Static Standing Balance Ability Good Dynamic Standing Balance Ability Fair Device Used none M5 PT-IP Objective Assessments Start: 11/24/19 08:37 Freq: NEEDED Status: Discharge Protocol: Document 11/24/19 11:04 AW (Rec: 11/24/19 11:23 AW [id number]) Orientation Orientation/Cognition Level of Alertness Alert Orientation Name,Day of Week,Place, Situation Language Function Ability No Deficits Noted Safety Awareness Decreased Safety Awareness Memory Description No Deficits Noted Gross Range of Motion Upper Extremity ROM Assessment Within Functional Limits Lower Extremity ROM Assessment Within Functional Limits Strength Upper Extremity Strength Assessment Within Functional Limits Lower Extremity Strength Assessment Within Functional Limits Comments Strength Comments Grossly 4+/5 BLE Coordination Assessment Gross Coordination Gross Coordination WNL Sensation Assessment Sensation Gross Sensation Right UE Impaired,Left UE Impaired,Right LE Impaired, Left LE Impaired Comments Sensation Comments Pt reports history of diabetic neuropathy wtih numbness of bilateral feet and hands. Pt reports slight improvement in light touch sensation in feet following surgery. Muscle Tone Muscle Tone WNL Yes M6 PT-IP Treatment Start: 11/24/19 08:37 Freq: NEEDED Status: Discharge Protocol: Document 11/25/19 10:36 KS (Rec: 11/25/19 12:20 KS [id number]) Physical Therapy Treatment Education Education Provided Precautions,Weight Bearing Status,Post-Op Packet,Safety Other Treatments Other Treatment Performed Explained importance of SPC use during ambulation and outpatient rehab for balance. M7 PT-IP Assessment and Plan Start: 11/24/19 08:37 Freq: NEEDED Status: Discharge Protocol: Document 11/25/19 10:36 KS (Rec: 11/25/19 12:20 KS [id number]) PT Summary Assessment and Plan Potential Rehabilitation Potential Good Status of Condition at Evaluation Stable Summary Impairments Pain,ROM,Strength,Balance, Sensation,Bed Mobility, Transfers,Gait,Activity Tolerance Progress Towards Goals Progressing Toward Goals Assessment Summary Pt SBA for sit<>stand, CGA for ambulation. Pt ambulated ~200 ft w/ CGA and no AD, but agreed to using SPC at home. Pt completed 3 steps R rail CGA w/ step over step pattern. He has outpatient rehab set uo to assess balance deficits. Pt and state they feel safe to return home. Goals Bed Mobility Goal Independent Transfer Goal Independent Gait Goal Independent,Cane Gait Distance 500 Other Goals - up/down 6 steps with R rail ascending IND Days to Meet Goals 3 Frequency of Treatment Frequency Of Treatment Twice a Day Treatment Plan Physical Therapy Treatment Plan Bed Mobility Training,Transfer Training,Gait Training, Therapeutic Exercise,Balance Retraining,Post Op Education, Discharge Planning,Hot or Cold Pack,Neuromuscular Re-ed Other Recommendations and Next Treatment gait training with FWW; review Focus precautions; stairs Recommendations To Nursing Amount of Assist Needed 1 Person Assist Discharge Recommendations PT Discharge Recommendations Home with Assistance, Outpatient PT Other Discharge Recommendations OP PT for balance Transportation Needs at Discharge Private Vehicle
== END 2019-11-25 10:54 | disposition home or self-care (01) | DRG 454 ==
PROVIDERS: Admitting Provider Orthopaedic Surgery Orthopaedic Surgery of the Spine; Family Provider Orthopaedic Surgery; PCP Internal Medicine; Referring Provider Internal Medicine; Visit Provider Orthopaedic Surgery Orthopaedic Surgery of the Spine
PROC: 0SG00AJ Fusion of Lumbar Vertebral Joint with Interbody Fusion Device, Posterior Approach, Anterior Column, Open Approach (ICD-10-PCS; principal; 2019-11-23 07:45)
DX: M48.062 Spinal stenosis, lumbar region with neurogenic claudication (principal); T84.216A Breakdown (mechanical) of internal fixation device of vertebrae, initial encounter; M96.0 Pseudarthrosis after fusion or arthrodesis; M47.26 Other spondylosis with radiculopathy, lumbar region; M48.07 Spinal stenosis, lumbosacral region; M47.27 Other spondylosis with radiculopathy, lumbosacral region; E11.9 Type 2 diabetes mellitus without complications; J44.9 Chronic obstructive pulmonary disease, unspecified; G25.81 Restless legs syndrome; Z11.59 Encounter for screening for other viral diseases
CPT/HCPCS: 36415; 72100; 76000; 82962; 85014; 85018; 87635; 94640; 97116; 97161; 97165; 97530; 97535; 99406; C1776; A9270; C9290; J1100; J1170; J2250; J2405; J2704; J3010; J3410

== ENCOUNTER → 2021-01-07 12:04 | Outpatient (CLI) | payer MEDICARE, OTHER, SELFPAY ==
[2019-11-23 14:07] VITALS: BMI 24.1
[2021-01-07 14:49] LABS: COVID19 -Nasal RAPID Negative (Negative)
== END ==
PROVIDERS: Family Provider Orthopaedic Surgery; PCP Internal Medicine; Visit Provider Nurse Practitioner Family
DX: Z20.822 Contact with and (suspected) exposure to COVID-19 (principal); Z01.812 Encounter for preprocedural laboratory examination
CPT/HCPCS: 87635; C9803

== ENCOUNTER 2021-01-08 12:37 | Day surgery (SDC) | payer MEDICARE, OTHER, SELFPAY ==
[2019-11-23 14:07] VITALS: BMI 24.1
[2021-01-08] VITALS (8 sets, daily range): BP systolic 95–145; BP diastolic 53–74; PULSE 62–69; RESP 11–16; TEMP 36.2–36.6; O2SAT 94–97; BMI 26.7
--- NOTE | 2021-01-08 | PATH_ITS ---
[facility] Accession Number: [id number] . 01 Material submitted: . PART A: stomach - ANTRUM PART B: gastrointestinal site - GASTRIC POLYP PART C: esophagus, E-G Junction - GEJ PART D: cecum - CECAL POLYP PART E: colon - ASCENDING COLON POLYP PART F: colon - TRANSVERSE COLON POLYP X3 . 01 Clinical history: . A: R/O H. PYLORI . 02 Diagnosis: A. Stomach, Antrum, Biopsy: Antral mucosa with mild chronic gastritis and epithelial atypia associated with active inflammation, indefinite for low-grade dysplasia. Please see comment. Negative for Helicobacter by immunohistochemistry. Negative for intestinal metaplasia. Negative for dysplasia and malignancy. . B. Stomach, Polyp, Biopsy: Fundic gland polyp. No evidence of Helicobacter organisms on H/E stain. Negative for intestinal metaplasia. Negative for dysplasia and malignancy. . C. Gastroesophageal Junction, Biopsy: Columnar mucosa with no diagnostic abnormality. Negative for intestinal metaplasia. Negative for dysplasia and malignancy. . D. Cecum, Polyp, Biopsy: Sessile serrated adenoma. . E. Ascending Colon, Polyp, Biopsy: Tubular adenoma. . F. Transverse Colon, Polyp x3, Biopsies: Tubular adenomas. MRV 01/11/2021 1341 Local . 02 Comment: A) The atypia is present in one of two sampled fragments of gastric mucosa. As part of routine water quality assistant, Dr. Mansfield also reviewed the H/E slides for part A of this case, and agrees with the interpretation. Dr. Bowens discussed these results with Dr. Walsh on 01/12/2021. . 02 Electronically signed: . Shannon Bowens MD, Pathologist NPI- [id number] . 01 Gross description: . Part A: ANTRUM: Received in formalin are 2 fragment(s) of barroso, soft tissue measuring 0.4 x 0.3 x 0.1 cm to 0.3 x 0.2 x 0.2 cm submitted entirely in 1 cassette(s) Part B: GASTRIC POLYP: Received in formalin is 1 fragment(s) of barroso, soft tissue measuring 0.4 x 0.3 x 0.2 cm submitted entirely in 1 cassette(s) Part C: GEJ : Received in formalin is 1 fragment(s) of barroso, soft tissue measuring 0.2 x 0.2 x 0.1 cm submitted entirely in 1 cassette(s) Part D: CECAL POLYP: Received in formalin is 1 fragment(s) of barroso, soft tissue measuring 0.5 x 0.5 x 0.5 cm which is inked, bisected and submitted entirely in 1 cassette(s) Part E: ASCENDING COLON POLYP: Received in formalin are multiple fragment(s) of barroso, soft tissue measuring 0.7 x 0.7 x 0.2 cm in aggregate submitted entirely in 1 cassette(s) Part F: TRANSVERSE COLON POLYP X3: Received in formalin are 4 fragment(s) of barroso, soft tissue measuring 0.5 x 0.4 x 0.4 cm to 0.4 x 0.3 x 0.2 cm submitted entirely in 1 cassette(s) /Q 01/09/2021 0727 Local . 02 Microscopic: . A) An immunohistochemical stain was performed to evaluate for Helicobacter organisms and is negative. The control stain showed appropriate reactivity. . * This test was developed and its performance characteristics determined by [facility]. It has not been cleared or approved by the U.S. Food and Drug Administration. The FDA has determined that such clearance or approval is not necessary. This test is used for clinical purposes. It should not be regarded as investigational or for research. . 02 Pathologist provided ICD-10: D12.0, D12.2, D12.3 . 02 CPT . 532024, 291815, 151269, 801906, 975973, 156510, U02512 Performed at: 01 [facility] [address], [place], [place] [id number] MD Zhou Pérez MD Phone: [phone] Performed at: 02 [facility] [place] [id number] [place] [id number] MD Shannon Bowens MD Phone: [phone]
[2021-01-08] MEDS: SODIUM CHLORIDE 0.9% 1,000 ML 84 ML IV (13:53)
--- NOTE | 2021-01-08 14:36 | PM.HP.1 ---
History of Present Illness History of Present Illness Date Patient Seen: 01/08/21 Time Patient Seen: 14:36 Chief complaint: SDC Narrative: Here for EGD and colonoscopy. I reviewed Marlena platt since note. Strong family history of colon cancer in his dad. He has had challenges with dysphagia to both liquids and solids that has been attributed to his stroke but also has a lengthy history of GERD. Patient History Medical History 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 Coma Coma COPD (chronic obstructive pulmonary disease) Current every day smoker Diabetes GERD (gastroesophageal reflux disease) STEBBINS (hard of hearing) Hypertension Hypothyroid Insomnia Peripheral neuropathy Polio Pseudocholinesterase deficiency PTSD (post-traumatic stress disorder) RBBB (right bundle branch block) RLS (restless legs syndrome) Stable angina Surgical History History of lumbar fusion (2016) History of repair of left rotator cuff History of repair of right rotator cuff History of vasectomy Hx of arthroscopy of right knee Hx of bilateral cataract extraction Hx of fusion of cervical spine Hx of lumbosacral spine surgery Family & Social History Family History Mother Metastatic cancer Father Cancer Brother Type 1 diabetes Social History: household members spouse Tobacco & Substance use: Tobacco type cigarettes Smoking Status Current every day smoker alcohol intake current alcohol intake frequency holiday/special occasion Substance Use Type marijuana Meds Home Medications and Allergies Home Medications Medication Instructions Recorded Confirmed Type albuterol sulfate 90 mcg/actuation 2 puff INH BID #0 05/02/16 01/08/21 History aerosol inhaler (Ventolin HFA) fluticasone 250 mcg-salmeterol 50 1 puff INH BID #0 05/02/16 01/08/21 History mcg/dose blistr powdr for inhalation (Advair Diskus) insulin detemir U-100 100 unit/mL 30 unit SQ HS #0 05/02/16 01/08/21 History (3 mL) subcutaneous pen (Levemir FlexTouch U-100 Insulin) calcium carb,cit-mag cit,ox-D3 1 tab PO QDAY #0 05/06/16 01/08/21 History omeprazole 20 mg capsule,delayed 40 mg PO QDAY #0 05/06/16 01/08/21 History release insulin aspart U-100 100 unit/mL 20 unit SQ QAM #0 12/16/16 01/08/21 History (3 mL) subcutaneous pen (Novolog Flexpen U-100 Insulin aspart) levothyroxine 150 mcg tablet 125 mcg PO DAILY 10/27/17 01/08/21 History losartan 50 mg tablet 50 mg PO DAILY 10/27/17 01/08/21 History ropinirole 0.25 mg tablet 0.5 mg PO BEDTIME 10/27/17 01/08/21 History fluoxetine 40 mg capsule 40 mg PO DAILY 11/16/19 01/08/21 History hydrocodone 5 mg-acetaminophen 325 1 - 2 tab PO Q4-5H PRN #70 tab 11/24/19 01/08/21 Rx mg tablet hydroxyzine pamoate 25 mg capsule 25 mg PO PRN PRN 01/08/21 01/08/21 History Allergies Allergy/AdvReac Type Severity Reaction Status Date / Time oxytetracycline Allergy Severe SWELLLING, Verified 01/08/21 13:33 [From TERRAMYCIN] COULDN'T BREATHE, HOSPITALIZED Penicillins [PENICILLINS] Allergy Severe SWELLING, Verified 01/08/21 13:34 COULDN'T BREATHE, HOSPITALIZED Cholinesterase Allergy Unknown STATES Verified 01/08/21 13:34 Inhibitor(Carbamate) THAT HE [CHOLINESTERASE HAS A INHIBITOR(CARBAMATE)] CHOLINESTERASE DEFICIENCY oxycodone [OXYCODONE] AdvReac Mild Gastrointestinal Verified 01/08/21 13:35 Upset Review of Systems Review of Systems ROS: Yes All systems reviewed with the patient and are negative except as otherwise documented Exam Vital Signs (past 8 hours): - 01/08/21 13:31 Temperature 97.2 F L Pulse Rate 69 Respiratory Rate 16 Blood Pressure 136/71 Pulse Oximetry 97 Oxygen Delivery Method Room Air Const General: cooperative and comfortable Orientation: alert [facility] Head: normocephalic Ears: external ears normal Nose: external nose normal Face and sinus: normal facial exam Mouth: oral mucosae normal Eyes General: appearance normal, both eyes and all related structures Neck Neck: normal visual inspection Chest Chest: normal inspection of the chest Resp Effort & Inspection: normal respiratory effort Auscultation: clear to auscultation bilaterally Cardio Rate: regular rate Rhythm: regular rhythm Heart Sounds: no murmurs GI Inspection: normal to inspection Palpation: soft and No tender Auscultation: normal bowel sounds Skin General: no rashes or lesions noted and No jaundice Neuro General: patient alert and moves all extremities Cognition: normal cognition Speech: speech normal Extrem General: no pedal edema Psych Appearance: grossly normal Assessment & Plan Assessment & Plan narrative: Family history of colon cancer. Personal history of chronic GERD and dysphagia. EGD and colonoscopy are planned for today. Time Spent With Patient Critical Care time: I spent a total of [] minutes of critical care time on this patient's care today; this time is exclusive of procedural time.
--- NOTE | 2021-01-08 14:37 | PM.PREOP ---
Pre-operative Note COVID-19 COVID-19 status: Negative Result date/Date tested (Pos, Neg/Pending): 01/07/21 Interval Note History & Physical reviewed/Exam performed by Physician: Yes Changes to H&P: No ASA Class (for procedural sedation): III
--- NOTE | 2021-01-08 16:23 | PM.OP.ENDO ---
Operative Date/Time/Diagnoses Date of procedure: 01/08/21 Time of procedure: 16:23 Pre-op diagnosis: Chronic GERD dysphagia to liquids and solids following stroke family history of colon cancer Post-op diagnosis: same Procedure & Clinicians Study performed: EGD with biopsies and a colonoscopy with hot snare polypectomies Same procedure as scheduled: Yes Indications: Chronic GERD, dysphagia, family history colon cancer Surgeon: Andrew Walsh Procedure Notes SCOAP/Timeout: Done Procedure in detail: After the risks and benefits were explained, written and verbal informed consent was obtained. The patient was brought into the procedure room and placed into the left lateral decubitus position. Please see nurse television program director note for sedation details. Scope was introduced into the mouth through the bite block and advanced under direct visualization to the 2nd portion of the duodenum. The scope was slowly withdrawn carefully examining the mucosa for any defects or lesions. Retroflexed views were accomplished in the stomach. The stomach was decompressed, the scope was then removed from the patient who tolerated the procedure well. The patient was then turned around digital rectal examination accomplished moderate internal hemorrhoids were noted. The scope was introduced into the rectum and advanced under direct visualization to the level of the cecum as identified by the appendiceal orifice and ileocecal valve. The scope was slowly withdrawn to carefully examine the mucosa for any defects or lesions. Multiple direct views were made through the dentate line for exclusion of pathology the colon was decompressed scope removed from the patient who tolerated the procedure well. Scope withdrawal time: 15 minutes Sedation minutes: 36 Complications: none Impression: 1. Duodenum this is visually normal from the bulb through the 2nd portion. 2. Stomach: Patient had a moderate gastropathy characterized by a nodular erythematous mucosa in the antrum. Biopsies were acquired for exclusion of Helicobacter or other pathology. There were a couple of benign diminutive polyps in the body of the stomach. One of these was sampled for histopathologic analysis. Otherwise retroflexed views of the LES were rather unremarkable. 3. Esophagus: The squamocolumnar junction generally correlated with the top of the gastric folds. The GEJ was at about 42 cm from the incisors. No evidence of any active erosive esophagitis. The Z-line did wonder slightly and there were a couple of small islands of salmon-colored mucosa that probably represent healed esophagitis. The GE junction nonetheless was sampled with cold forceps for exclusion of specialized intestinal metaplasia. 4. Colon: Patient had extensive diverticulosis throughout the sigmoid. In the cecum there was a 7-8 mm sessile polyp removed with hot snare. In the ascending colon there was an 8 mm sessile polyp removed with hot snare. In the transverse colon there were 3 sessile polyps ranging in size from 7-12 mm. These were removed with hot snare as well. No other significant pathology was appreciated throughout. Endoscopic diagnosis 1. Irregular Z-line 2. Diminutive gastric polyps 3. Gastropathy 4. Multiple colon polyps 5. Hemorrhoids 6. Diverticulosis Post-procedure Recommendations: Colonscopy in 3 years Plan for aftercare: 1. Await histopathology 2. Continue anti-reflux therapy 3. Repeat colonoscopy 3 years time. Disposition: PACU
== END 2021-01-08 17:50 | disposition home or self-care (01) ==
PROVIDERS: Family Provider Orthopaedic Surgery; PCP Internal Medicine; Referring Provider Internal Medicine Gastroenterology; Visit Provider Internal Medicine Gastroenterology
PROC: 0DJ08ZZ Inspection of Upper Intestinal Tract, Via Natural or Artificial Opening Endoscopic (ICD-10-PCS; CPT 43235; principal; 2021-01-08 14:00)
PROC: 0DJD8ZZ Inspection of Lower Intestinal Tract, Via Natural or Artificial Opening Endoscopic (ICD-10-PCS; CPT 45378; 2021-01-08 14:00)
DX: Z12.11 Encounter for screening for malignant neoplasm of colon (principal); Z80.0 Family history of malignant neoplasm of digestive organs; I69.391 Dysphagia following cerebral infarction; K21.9 Gastro-esophageal reflux disease without esophagitis; K57.30 Diverticulosis of large intestine without perforation or abscess without bleeding; K64.9 Unspecified hemorrhoids; K31.7 Polyp of stomach and duodenum; K29.50 Unspecified chronic gastritis without bleeding; D12.0 Benign neoplasm of cecum; D12.2 Benign neoplasm of ascending colon; D12.3 Benign neoplasm of transverse colon
CPT/HCPCS: 45385; 43239; J2704

== ENCOUNTER → 2021-05-10 11:36 | Outpatient (CLI) | payer MEDICARE, OTHER, SELFPAY ==
[2019-11-23 14:07] VITALS: BMI 24.1
[2021-05-10 13:55] LABS: COVID19 -Nasal RAPID Negative (Negative)
== END ==
PROVIDERS: Family Provider Orthopaedic Surgery; PCP Internal Medicine; Visit Provider Family Medicine Sleep Medicine
DX: Z20.822 Contact with and (suspected) exposure to COVID-19 (principal)
CPT/HCPCS: 87635; C9803

== ENCOUNTER 2021-05-13 10:47 | Day surgery (SDC) | payer MEDICARE, OTHER, SELFPAY ==
[2019-11-23 14:07] VITALS: BMI 24.1
--- NOTE | 2021-05-13 | PATH_ITS ---
[facility] Accession Number: [id number] . 01 Material submitted: . gastrointestinal site - ANTRUM BIOPSY . 02 Diagnosis: Stomach, Antrum, Biopsy: Antral mucosa with reactive gastropathy. Negative for Helicobacter by immunohistochemistry. Negative for intestinal metaplasia. Negative for dysplasia and malignancy. V 05/17/2021 1342 Local . 02 Electronically signed: . Shannon Bowens MD, Pathologist NPI- [id number] . 01 Gross description: . ANTRUM BIOPSY: Received in formalin are 3 fragment(s) of barroso, soft tissue measuring 0.1 x 0.1 x 0.1 cm to 0.3 x 0.2 x 0.2 cm submitted entirely in 1 cassette(s) /MIQUEL 05/14/2021 2004 Local . 02 Microscopic: . A. An immunohistochemical stain was performed to evaluate for Helicobacter organisms and is negative. The control stain showed appropriate reactivity. . An alcian blue stain was performed to evaluate for intestinal metaplasia and is negative. The control stain showed appropriate reactivity. . * This test was developed and its performance characteristics determined by [facility]. It has not been cleared or approved by the U.S. Food and Drug Administration. The FDA has determined that such clearance or approval is not necessary. This test is used for clinical purposes. It should not be regarded as investigational or for research. . 02 Pathologist provided ICD-10: R13.12 . 02 CPT . 238981, R26608, 463413 Performed at: 01 [facility] [address], [place], [place] [id number] MD Zhou Pérez MD Phone: [phone] Performed at: 02 [facility] [place] [id number] [place] [id number] MD Shannon Bowens MD Phone: [phone]
[2021-05-13 11:10] VITALS: BP 131/84; PULSE 75; RESP 16; TEMP 36.1; O2SAT 96; BMI 25.7
[2021-05-13] MEDS: SODIUM CHLORIDE 0.9% 1,000 ML 84 ML IV (11:27)
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
--- NOTE | 2021-05-13 11:44 | PM.PREOP ---
Pre-operative Note COVID-19 COVID-19 status: Negative Result date/Date tested (Pos, Neg/Pending): 05/10/21 Criteria for continued procedure: Possibility delay results in more complex future surgery or treatment Interval Note History & Physical reviewed/Exam performed by Physician: Yes Changes to H&P: No ASA Class (for procedural sedation): III
--- NOTE | 2021-05-13 12:00 | PM.OP.EGD ---
Operative Date/Time/Diagnoses Date of procedure: 05/13/21 Time of procedure: 12:00 Pre-op diagnosis: Previous gastric biopsies with indefinite low-grade dysplasia Post-op diagnosis: same Procedure & Clinicians Study performed: EGD with biopsies Same procedure as scheduled: Yes Indications: Previous gastric biopsies with indefinite low-grade dysplasia Surgeon: Andrew Walsh Procedure Notes SCOAP/Timeout: Done Procedure in detail: After the risks and benefits were explained, written and verbal informed consent was obtained. The patient was brought into the procedure room and placed into the left lateral decubitus position. Conscious sedation medication was applied as per nursing documentation. The scope was introduced into the mouth through the bite block and advanced under direct visualization to the 2nd portion of the duodenum. The scope was slowly withdrawn carefully examining the mucosa for any defects or lesions. Retroflexed views were accomplished in the stomach. The stomach was decompressed, the scope was then removed from the patient who tolerated the procedure well. Sedation minutes: 10 Complications: none Impression: 1. Duodenum no significant pathology appreciated from the bulb through the 2nd portion. 2. Stomach: No focal pathology appreciated. Gastropathy was again noted. I therefore took random biopsies all throughout the antrum. Retroflexed views of the LES were unremarkable. 3. Esophagus: The squamocolumnar junction correlated with the top of the gastric folds. GEJ was at approximately 42 cm from the incisors. No erosive features no strictures no mass lesions the esophagus was unremarkable. Endoscopic diagnosis 1. Gastropathy 2. Otherwise visually unremarkable EGD Post-procedure Plan for aftercare: 1. Await histopathology 2. Surveillance EGD will be considered upon review of histopathology. Disposition: PACU
[2021-05-13 12:05] VITALS: BP 107/65; PULSE 84; RESP 14; TEMP 36.2; O2SAT 96
[2021-05-13 12:09] VITALS: BP 111/79; PULSE 71; RESP 24; O2SAT 94
[2021-05-13 12:14] VITALS: BP 103/68; PULSE 71; RESP 20; O2SAT 93
[2021-05-13 12:29] VITALS: BP 101/60; PULSE 75; RESP 23; O2SAT 97
[2021-05-13 12:45] VITALS: BP 111/75; PULSE 71; TEMP 36.2; O2SAT 94
== END 2021-05-13 12:52 | disposition home or self-care (01) ==
PROVIDERS: Family Provider Orthopaedic Surgery; PCP Internal Medicine; Referring Provider Internal Medicine Gastroenterology; Visit Provider Internal Medicine Gastroenterology
PROC: 0DJ08ZZ Inspection of Upper Intestinal Tract, Via Natural or Artificial Opening Endoscopic (ICD-10-PCS; CPT 43235; principal; 2021-05-13 12:30)
DX: K31.9 Disease of stomach and duodenum, unspecified (principal); K21.9 Gastro-esophageal reflux disease without esophagitis; F17.210 Nicotine dependence, cigarettes, uncomplicated; E11.9 Type 2 diabetes mellitus without complications; E03.9 Hypothyroidism, unspecified; I10 Essential (primary) hypertension; Z79.4 Long term (current) use of insulin
CPT/HCPCS: 43239; 82962; J2704

== ENCOUNTER → 2021-07-08 10:54 | Outpatient (CLI) | payer MEDICARE, OTHER, SELFPAY ==
[2019-11-23 14:07] VITALS: BMI 24.1
--- NOTE | 2021-07-08 | DI.RAD.S_ITS ---
PROCEDURE: FL BARIUM SWALLOW W SPEECH INDICATIONS: Dysphagia, pharyngeal phase COMPARISON: None. TECHNIQUE: Examination was conducted in conjunction with speech pathology per standard protocol. In the lateral projection, filming was performed of the patient swallowing. AP projection filming may also be performed with patient swallowing. COMPARISON: FINDINGS: Function: The oral preparatory phase appears normal, with proper containment. The subsequent oral propulsive phase, pharyngeal phase, and esophageal phase of swallowing also appear normal with all proffered substances. Eagle laryngotracheal aspiration noted with all proffered substances. No pathologic vallecular pooling. Morphology: No cricopharyngeal bar is identified. No cervical esophageal webs. No Zenker's diverticulum. No strictures. IMPRESSION: Eagle laryngotracheal aspiration with all proffered substances. Please see speech pathology report for additional detailed description of the study. Dictated by: Charmaine Zheng MD, PhD on 07/08/2021 at 15:46 Approved by: Charmaine Zheng MD, PhD on 07/08/2021 at 15:47
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
== END ==
PROVIDERS: Family Provider Internal Medicine; PCP Internal Medicine; Referring Provider Otolaryngology; Visit Provider Otolaryngology
DX: R13.13 Dysphagia, pharyngeal phase (principal)
CPT/HCPCS: 74230; 92611

== ENCOUNTER 2021-08-06 13:30 | Outpatient (RCR) | payer MEDICARE, OTHER, SELFPAY ==
[2019-11-23 14:07] VITALS: BMI 24.1
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
--- NOTE | 2021-07-08 12:10 | ST.IPDYTX ---
Visit Care Team Role Provider Type Dorothy Jackson MD Family Provider Non-Staff Primary Care Provider Specialty: Internal Medicine Address: [facility] [place], [address] Email: Michael Wang MD Attending Provider Physician Referring Provider Specialty: Ear, Nose, Throat Address: [address] [place] [address], [address] Email: [email or web address] WORKFORCE MANAGEMENT COORDINATOR Dysphagia Treatment WORKFORCE MANAGEMENT COORDINATOR Dysphagia Treatment Start: 06/26/21 09:33 Freq: Status: Active Protocol: Document 07/08/21 17:08 JUANISK (Rec: 07/12/21 17:20 LNK [id number]) Dysphagia Treatment Session Time Visit Start Time 14:30 Visit Stop Time 15:30 Total Visit Minutes 60 Visit Information Visit Number 07/08/21-10/08/21 Setting Assessment Location Outpatient Care Visit Type Note Type Treatment Note Next Note Type Next Note Type Treatment Note Patient Information Identification Type Name,Date of Subjective Observations Pt was accompanied by his Treatment Treatment Activities No PO trials as pt just completed MBSS. Reviewed CG swallowing re:normal swallow. Then reviewed pt's MBSS with him and his . Discussed the findings of the MBSS and the treatment plan. Both were in agreement of POC. Swallow exerciseswere described by WORKFORCE MANAGEMENT COORDINATOR and pt demonstrated all exercises correctly. Swallow strategies described, specifically head turn right and no straws or consecutive swallowing. One sip at a time Strategies targeting reduction of aspiration. Assessment Patient Response to Treatment Excellent Rehab Potential Good Diet Recommendations Liquids Order Thin Diet Order Mechanical Soft Medication Recommendations As Tolerated Aspiration Precautions Recommended Precautions Upright at 90 Degrees,Frequent Rest Periods,Small Bites/Sips ,Effortful Swallow,Double Swallow,Right Head Turn, Liquids from Cup Treatment Plan Appropriate for Continued Therapy Yes Dysphagia Goals 1) Pt will adapt eating to taking small bites and sips at all meals per pt report.2) Pt will use safe swallow strategies (turn head to the right, small bites/sips) when eating /drinking per pt report 3) Pt will practice linguapharyngeal and base of tongue exercises 3-5x/day as directed . 4) Pt will practice glottal adduction exercises to increase strength and ROM of vocal folds/interarytenoids for reduced risk of aspiration 3-5x/day as directed.
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
--- NOTE | 2021-07-12 17:22 | ST.IPDYTX ---
Visit Care Team Role Provider Type Dorothy Jackson MD Family Provider Non-Staff Primary Care Provider Specialty: Internal Medicine Address: [facility] [place], [address] Email: Michael Wang MD Attending Provider Physician Referring Provider Specialty: Ear, Nose, Throat Address: [address] [place] [address], [address] Email: [email or web address] ART FRAMING MANAGER Dysphagia Treatment ART FRAMING MANAGER Dysphagia Treatment Start: 06/26/21 09:33 Freq: Status: Active Protocol: Document 07/08/21 17:08 JUANISK (Rec: 07/12/21 17:20 LNK [id number]) Dysphagia Treatment Session Time Visit Start Time 14:30 Visit Stop Time 15:30 Total Visit Minutes 60 Visit Information Visit Number 07/08/21-10/08/21 Setting Assessment Location Outpatient Care Visit Type Note Type Treatment Note Next Note Type Next Note Type Treatment Note Patient Information Identification Type Name,Date of Subjective Observations Pt was accompanied by his Treatment Treatment Activities No PO trials as pt just completed MBSS. Reviewed CG swallowing re:normal swallow. Then reviewed pt's MBSS with him and his . Discussed the findings of the MBSS and the treatment plan. Both were in agreement of POC. Swallow exercises were described by ART FRAMING MANAGER and pt demonstrated all exercises correctly. Swallow strategies described, specifically head turn right and no straws or consecutive swallowing. One sip at a time Strategies targeting reduction of aspiration. Assessment Patient Response to Treatment Excellent Rehab Potential Good Diet Recommendations Liquids Order Thin Diet Order Mechanical Soft Medication Recommendations As Tolerated Aspiration Precautions Recommended Precautions Upright at 90 Degrees,Frequent Rest Periods,Small Bites/Sips ,Effortful Swallow,Double Swallow,Right Head Turn, Liquids from Cup Treatment Plan Appropriate for Continued Therapy Yes Dysphagia Goals 1) Pt will adapt eating to taking small bites and sips at all meals per pt report.2) Pt will use safe swallow strategies (turn head to the right, small bites/sips) when eating /drinking per pt report 3) Pt will practice linguapharyngeal and base of tongue exercises 3-5x/day as directed . 4) Pt will practice glottal adduction exercises to increase strength and ROM of vocal folds/interarytenoids for reduced risk of aspiration 3-5x/day as directed.
--- NOTE | 2021-07-15 16:52 | ST.IPDYTX ---
Visit Care Team Role Provider Type Dorothy Jackson MD Family Provider Non-Staff Primary Care Provider Specialty: Internal Medicine Address: [facility] [place], [address] Email: Michael Wang MD Attending Provider Physician Referring Provider Specialty: Ear, Nose, Throat Address: [address] [place] [address], [address] Email: [email or web address] CHEMICAL OPERATIONS SPECIALIST Dysphagia Treatment CHEMICAL OPERATIONS SPECIALIST Dysphagia Treatment Start: 06/26/21 09:33 Freq: Status: Active Protocol: Document 07/15/21 16:43 LNK (Rec: 07/15/21 16:52 LNK [id number]) Dysphagia Treatment Session Time Visit Start Time 14:30 Visit Stop Time 15:30 Total Visit Minutes 60 Visit Information Visit Number 3 Plan of Care Dates 07/08/21-10/08/21 Setting Assessment Location Outpatient Care Visit Type Note Type Treatment Note Next Note Type Next Note Type Treatment Note Patient Information Identification Type Name,Date of Subjective Observations Pt was accompanied by his Treatment Treatment Activities Reviewed swallow exercises from last session. Pt demonstrated all exercises correctly. Swallow strategies for safe swallowing. Made a cheat cheat to put on the table until pt spontaneously performing strategies. swallowing. Strategies targeting reduction of aspiration. Added straw and with tiddly winks activity for glottal adduction duration. Assessment Patient Response to Treatment Excellent Rehab Potential Good Diet Recommendations Liquids Order Thin Diet Order Mechanical Soft Medication Recommendations As Tolerated Additional Dietary Needs Single Sips,Controlled Sips,No Straws Aspiration Precautions Recommended Precautions Upright at 90 Degrees,Frequent Rest Periods,Small Bites/Sips ,Effortful Swallow,Double Swallow,Right Head Turn, Liquids from Cup Treatment Plan Appropriate for Continued Therapy Yes Dysphagia Goals 1) Pt will adapt eating to taking small bites and sips at all meals per pt report.2) Pt will use safe swallow strategies (turn head to the right, small bites/sips) when eating/drinking per pt report 3) Pt will practice linguapharyngeal and base of tongue exercises 3-5x/ day as directed. 4) Pt will practice glottal adduction exercises to increase strength and ROM of vocal folds/interarytenoids for reduced risk of aspiration 3-5x/day as directed. Referrals/Other Recommended Referrals ENT Consult
--- NOTE | 2021-08-06 15:00 | ST.IPDYTX ---
Visit Care Team Role Provider Type Dorothy Jackson MD Family Provider Non-Staff Primary Care Provider Specialty: Internal Medicine Address: [address] [place] [address], [address] Email: Michael Wang MD Attending Provider Physician Referring Provider Specialty: Ear, Nose, Throat Address: [address] [place] [address], [address] Email: [email or web address] CARD GRADER Dysphagia Treatment CARD GRADER Dysphagia Treatment Start: 06/26/21 09:33 Freq: Status: Active Protocol: Document 08/06/21 14:20 LNK (Rec: 08/06/21 14:59 LNK [id number]) Dysphagia Treatment Session Time Visit Start Time 14:30 Visit Stop Time 15:15 Total Visit Minutes 45 Visit Information Visit Number 4 Plan of Care Dates 07/08/21-10/08/21 Setting Assessment Location Outpatient Care Visit Type Note Type Treatment Note Next Note Type Next Note Type Treatment Note Patient Information Identification Type Name,Date of Subjective Observations Pt was accompanied by his Treatment Treatment Activities Pt demonstrated all HEP exercises correctly x5 each. He and his report that he is not turning his head as he should when eating. Pt's reported that. recently, he has not been coughing as much as he was. He still coughs with most meals. Pt's described his voice as breathy . He stated that his voice was normal until after his ACDF surgery. Vocal assessment was conducted to determine current vocal parameters: Pitch = 160Hz Pitch Range = 83-129Hz; Maximum Phonation = 11.0s; Jitter = 3.4%; Shimmer 6.4%. Dr. Wang reported in his notes that he was unable to visualize the vocal folds secondary to pt's gag reflex. Pt has reported he is consistently following HEP as instructed. He continues to cough during meals and he presents with a breathy vocal quality. Stroboscopic assessment is recommended to determine the status of the vocal folds. Poor vocal fold adduction is suspected. Assessment Patient Response to Treatment Excellent Rehab Potential Good Diet Recommendations Liquids Order Thin Diet Order Mechanical Soft Medication Recommendations As Tolerated Additional Dietary Needs Single Sips,Controlled Sips,No Straws Aspiration Precautions Recommended Precautions Upright at 90 Degrees,Frequent Rest Periods,Small Bites/Sips ,Effortful Swallow,Double Swallow,Right Head Turn, Liquids from Cup Treatment Plan Appropriate for Continued Therapy Yes Dysphagia Goals 1) Pt will adapt eating to taking small bites and sips at all meals per pt report.2) Pt will use safe swallow strategies (turn head to the right, small bites/sips) when eating/drinking per pt report 3) Pt will practice linguapharyngeal and base of tongue exercises 3-5x/ day as directed. 4) Pt will practice glottal adduction exercises to increase strength and ROM of vocal folds/interarytenoids for reduced risk of aspiration 3-5x/day as directed. Referrals/Other Recommended Referrals ENT Consult
--- NOTE | 2021-10-28 10:12 | ST.IPDYTX ---
Visit Care Team Role Provider Type Dorothy Jackson MD Family Provider Non-Staff Primary Care Provider Specialty: Internal Medicine Address: [facility] [place], [address] Email: Michael Wang MD Attending Provider Physician Referring Provider Specialty: Ear, Nose, Throat Address: [address] [place] [address], [address] Email: [email or web address] LAPPING MACHINE SET UP OPERATOR Dysphagia Treatment LAPPING MACHINE SET UP OPERATOR Dysphagia Treatment Start: 06/26/21 09:33 Freq: Status: Active Protocol: Document 10/28/21 10:10 LIZET (Rec: 10/28/21 10:12 [email or web address] [id number]) Dysphagia Treatment Visit Type Note Type Discharge Summary Assessment Assessment of Improvement Pt was seen fo r 4 sessions. Pt and reported that pt was following HEP. Pt has not been seen since 08/06/21. Will discharge at this time. Treatment Plan Therapy Recommendations Discharge
== END 2021-11-01 14:04 ==
LOC: SP 13:30
PROVIDERS: Family Provider Internal Medicine; PCP Internal Medicine; Referring Provider Otolaryngology; Visit Provider Otolaryngology
DX: R13.13 Dysphagia, pharyngeal phase (principal)
CPT/HCPCS: 92526; 92610; 92611

== ENCOUNTER → 2021-08-17 12:38 | Outpatient (CLI) | payer MEDICARE, OTHER, SELFPAY ==
[2019-11-23 14:07] VITALS: BMI 24.1
--- NOTE | 2021-08-17 12:40 | DI.MRI.S_ITS ---
PROCEDURE: MR HEAD/BRAIN WO CON INDICATIONS: symptoms and signs involving the nervous system TECHNIQUE: Non-contrast axial T1 spin echo, axial T2 fast spin echo, sagittal and axial FLAIR, coronal T2 fast spin echo, axial gradient echo, axial diffusion and ADC through the brain. COMPARISON: None. FINDINGS: Image quality: Excellent. CSF spaces: Ventricles appear symmetric in size and shape. Basal cisterns are patent. No extra-axial fluid collections. Brain: No intracranial bleeds or mass effects. There is cerebral volume loss for age. There are periventricular and deep white matter chronic small vessel ischemic changes. Brainstem appears normal. Diffusion-weighted images show no acute ischemic insults. No chronic ischemic insults. Normal intravascular flow voids are present. Skull and face: Calvarial bone marrow is normal in signal. Orbits are normal. Sinuses: Small amount of bilateral mastoid fluid mild mucosal thickening within the ethmoid air cells bilaterally. Mild bilateral maxillary sinus mucosal thickening. IMPRESSION: 1. Mild volume loss and small vessel ischemic disease. 2. Sinus disease. 3. No acute process. No recent infarct. Dictated by: Lior Jeong M.D. on 08/19/2021 at 9:05 Approved by: Lior Jeong M.D. on 08/19/2021 at 9:06
== END ==
PROVIDERS: Family Provider Internal Medicine; PCP Internal Medicine; Referring Provider Psychiatry & Neurology Neurology; Visit Provider Psychiatry & Neurology Neurology
DX: R29.818 Other symptoms and signs involving the nervous system (principal); R13.12 Dysphagia, oropharyngeal phase; J32.9 Chronic sinusitis, unspecified
CPT/HCPCS: 70551

== ENCOUNTER 2022-03-26 13:00 | Emergency (ER) | payer MEDICARE, OTHER, SELFPAY ==
[2019-11-23 14:07] VITALS: BMI 24.1
[2022-03-26 13:21] VITALS: BP 122/68; PULSE 75; RESP 18; TEMP 36.4; O2SAT 95; BMI 24.7
--- NOTE | 2022-03-26 13:48 | DI.RAD.S_ITS ---
PROCEDURE: XR FOOT RT 2V INDICATIONS: osteo? ulcer to toes # 1, 2, 5 TECHNIQUE: 2 views of the foot were acquired. COMPARISON: None. FINDINGS: Bones: No acute fractures or dislocations. No suspicious bony lesions. No definite cortical destruction or osseous erosion is seen. Small plantar calcaneal enthesophyte. Soft tissues: No suspicious soft tissue abnormality. IMPRESSION: No definite radiographic signs of osteomyelitis. If there is continued clinical concern, MRI could be performed for further evaluation. Approved by: Enmanuel Hudson M.D. on 03/26/2022 at 15:00
--- NOTE | 2022-03-26 13:49 | DI.RAD.S_ITS ---
PROCEDURE: XR FOOT LT 2V INDICATIONS: ulcer to toes 1, 2,, 5 TECHNIQUE: 2 views of the foot were acquired. COMPARISON: None. FINDINGS: Bones: No acute fractures or dislocations. No suspicious bony lesions. No focal cortical destruction or osseous erosion is seen. Mild degenerative changes of the 1st metatarsophalangeal joint. Mild generalized osteopenia. Tiny plantar calcaneal enthesophyte. Soft tissues: No suspicious soft tissue calcification. IMPRESSION: No definite radiographic signs of osteomyelitis. If there is continued clinical concern, MRI could be performed for further evaluation. Approved by: Enmanuel Hudson M.D. on 03/26/2022 at 15:02
--- NOTE | 2022-03-26 14:13 | ED_ITS ---
HPI - Extremity Injury (Lower) General Chief Complaint: Extremity Injury, Lower Stated Complaint: wants toes checked out Time Seen by Provider: 03/26/22 13:48 Source: patient Mode of arrival: Ambulatory History of Present Illness HPI Narrative: This is a 77-year-old gentleman who presents to the emergency department with diabetic ulcers to his bilateral feet at the distal tip of his 1st, 2nd and 5th toes. He states even there for approximately 1.5 months. He has not an appointment with Dr. Carter in April but states he was told by his physical therapist to have these evaluated sooner than that. Patient denies symptoms of illness, denies any fever, chills, edema to his ankles or lower extremities. He states that these toes have tenderness, he has decreased sensation but increased tenderness to the distal tips of those toes and on the medial aspect of the 2nd toe with 2 ulcers on the great toe both at the distal tip and medial surface. All wounds are approximately 0.5-1 cm in diameter. He has not had these evaluated by any physician yet. Related Data Home Medications Medication Instructions Recorded Confirmed albuterol sulfate 90 mcg/actuation 2 puff INH BID ##0 05/02/16 05/13/21 aerosol inhaler (Ventolin HFA) fluticasone 250 mcg-salmeterol 50 1 puff INH BID ##0 05/02/16 01/08/21 mcg/dose blistr powdr for inhalation (Advair Diskus) insulin detemir U-100 100 unit/mL 30 unit SQ HS ##0 05/02/16 01/08/21 (3 mL) subcutaneous pen (Levemir FlexTouch U-100 Insulin) calcium carb,cit-mag cit,ox-D3 1 tab PO QDAY ##0 05/06/16 01/08/21 omeprazole 20 mg capsule,delayed 40 mg PO QDAY ##0 05/06/16 01/08/21 release insulin aspart U-100 100 unit/mL 20 unit SQ QAM ##0 12/16/16 01/08/21 (3 mL) subcutaneous pen (Novolog Flexpen U-100 Insulin aspart) levothyroxine 150 mcg tablet 125 mcg PO DAILY 10/27/17 01/08/21 losartan 50 mg tablet 50 mg PO DAILY 07/17/18 09/28/21 ropinirole 0.25 mg tablet 0.5 mg PO BEDTIME restless leg 10/27/17 01/08/21 syndrome fluoxetine 40 mg capsule 40 mg PO DAILY 11/16/19 01/08/21 hydroxyzine pamoate 25 mg capsule 25 mg PO PRN PRN Itching 01/08/21 01/08/21 Previous Rx's Medication Instructions Recorded hydrocodone 5 mg-acetaminophen 325 1 - 2 tab PO Q4-5H PRN Pain, 11/23/ mg tablet Severe (7-10) #70 tabs ciprofloxacin HCl 500 mg tablet 500 mg PO BID 2 weeks #28 tabs 03/26/22 Allergies Allergy/AdvReac Type Severity Reaction Status Date / Time oxytetracycline Allergy Severe SWELLLING, Verified 01/08/21 13:33 [From TERRAMYCIN] COULDN'T BREATHE, HOSPITALIZED Penicillins [PENICILLINS] Allergy Severe SWELLING, Verified 01/08/21 13:34 COULDN'T BREATHE, HOSPITALIZED Cholinesterase Allergy Unknown STATES Verified 01/08/21 13:34 Inhibitor(Carbamate) THAT HE [CHOLINESTERASE HAS A INHIBITOR(CARBAMATE)] CHOLINESTERASE DEFICIENCY oxycodone [OXYCODONE] AdvReac Mild Gastrointestinal Verified 01/08/21 13:35 Upset Review of Systems Review of Systems ROS Unobtainable: All systems reviewed & are unremarkable except as noted in HPI and below Patient History Medical History 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 [place] COPD (chronic obstructive pulmonary disease) Current every day smoker Diabetes GERD (gastroesophageal reflux disease) [place] (hard of hearing) Hypertension Hypothyroid Insomnia Peripheral neuropathy Polio Pseudocholinesterase deficiency PTSD (post-traumatic stress disorder) RBBB (right bundle branch block) RLS (restless legs syndrome) Stable angina Surgical History History of lumbar fusion (2017) History of repair of left rotator cuff History of repair of right rotator cuff History of vasectomy Hx of arthroscopy of right knee Hx of bilateral cataract extraction Hx of fusion of cervical spine Hx of lumbosacral spine surgery Family History Mother Metastatic cancer Father Cancer Brother Type 1 diabetes Social History household members: spouse Smoking Status: Current every day smoker alcohol intake: current Smoking Status: Current every day smoker tobacco type: cigarettes alcohol intake frequency: holidays/special occasions only Substance Use Type: marijuana Exam Narrative Exam Narrative: Reviewed vitals signs and nursing notes. General: cooperative, comfortable, in no acute distress, well groomed, afebrile MSK: moves all extremities, neurovascularly intact, no weakness, normal tone, bilateral feet with areas of bogginess under a callus with tenderness to palpation with erythema of his 1st, 2nd, and 5th toes. Non circumferential, without drainage, appears like a blister covering ecchymosis. Decreased sensation to bilateral feet however sensation is present, without wounds on the plantar aspect bilaterally, no wounds over the heel, Skin: brisk capillary refill, without pallor or erythema Initial Vital Signs Initial Vital Signs: Vital Signs Temperature 97.6 F 03/26/22 13:21 Pulse Rate 75 03/26/22 13:21 Respiratory Rate 18 03/26/22 13:21 Blood Pressure 122/68 03/26/22 13:21 Pulse Oximetry 95 03/26/22 13:21 Oxygen Delivery Method 03/26/22 13:21 Course Orders Ordered: ED Orders 03/26/22 13:48 XR foot RT 2V Stat 03/26/22 13:49 XR foot LT 2V Stat Vital Signs Vital signs: Vital Signs - 8 hr 03/26/22 13:21 03/26/22 15:23 Temperature 97.6 F Pulse Rate 75 68 Respiratory Rate 18 16 Blood Pressure 122/68 120/78 Pulse Oximetry 95 99 Oxygen Delivery Method Room Air Room Air MDM - Extremity Injury (Lower) Imaging Data Extremity x-ray #1: Radiologist's Impression: PROCEDURE:? XR FOOT LT 2V ? INDICATIONS:? ulcer to toes 1, 2,, 5 ? TECHNIQUE:? 2 views of the foot were acquired.? ? COMPARISON:? None. ? FINDINGS:? ? Bones:? No acute fractures or dislocations.? No suspicious bony lesions.? No focal cortical destruction or osseous erosion is seen.? Mild degenerative changes of the 1st metatarsophalangeal joint.? Mild generalized osteopenia.? Tiny plantar calcaneal enthesophyte. ? Soft tissues:? No suspicious soft tissue calcification. ? ? IMPRESSION:? No definite radiographic signs of osteomyelitis.? If there is continued clinical concern, MRI could be performed for further evaluation. ? ? ? Approved by: Enmanuel Hudson M.D. on 03/26/2022 at 15:02? Extremity x-ray #2: Radiologist's Impression: PROCEDURE:? XR FOOT RT 2V ? INDICATIONS:? osteo? ulcer to toes # 1, 2, 5 ? TECHNIQUE:? 2 views of the foot were acquired.? ? COMPARISON:? None. ? FINDINGS:? ? Bones:? No acute fractures or dislocations.? No suspicious bony lesions.? No definite cortical destruction or osseous erosion is seen.? Small plantar calcaneal enthesophyte. ? Soft tissues:? No suspicious soft tissue abnormality. ? ? IMPRESSION:? No definite radiographic signs of osteomyelitis.? If there is continued clinical concern, MRI could be performed for further evaluation. ? ? ? Approved by: Enmanuel Hudson M.D. on 03/26/2022 at 15:00? MDM Narrative Medical decision making narrative: This is a 77-year-old gentleman with history of diabetes, history of diabetic ulcers to his toes in the past and presents to the emergency department today with wounds present to his bilateral feet for the last 1.5 months, states that he was urged by his physical therapist to have his feet evaluated prior to his appointment which is April 25, [address] Carter in [place]. Patient denies fever or chills, denies mobility changes but endorses tenderness to his 1st, 2nd and 5th toes bilaterally with erythema, without drainage, and without moisture. X-ray of his bilateral feet do not show evidence of osteomyelitis. Patient has a history of allergies to penicillins, oxycodone and Terramycin Will start on ciprofloxacin, have patient follow-up with Dr. Carter and move his appointment up if able. Patient has normal range of motion of all joints without evidence of deep tissue involvement. Discussed risks of tendon pain and tendinitis with ciprofloxacin prescription, encourage patient to rest, avoid extreme temperatures, come in for any complications he has or worsening. He states understanding. Discharge Plan Departure Patient Disposition: Home Clinical Impression: Chronic diabetic ulcer of left foot determined by examination, Chronic diabetic ulcer of right foot determined by examination Instructions: Diabetic Foot Ulcer Activity Restrictions/Additional Instructions: *You have been diagnosed with diabetic ulcers to your 1st, 2nd, and 5th toes bilaterally. Please take these antibiotics for the next 2 weeks, call Dr. Carter's office and ask for more urgent follow-up as you were seen in the emergency department for this. The x-rays do not show signs of osteomyelitis which is good however you will likely need antibiotics for the meantime until you can follow-up with Podiatry. I hope you feel better soon. Please call Dr. Carter's office and stay you were started on antibiotics in the emergency department, no signs of osteomyelitis but you are concerned about need for surgical evaluation of your toes prior to the appointment date. They will hopefully move your appointment for you. If you develop a fever or chills, tendon pain, or other complication, please come back for another evaluation Please avoid any significant activity or acrobatic activities. Please stay off of ladders, and hopefully this will help treat infection. *What to do: *Please continue to take your regular medications as directed. [ x] New medication prescriptions sent to your pharmacy: [[facility]] [ ] New medication written as a paper prescription [ ] No new medications given *Please follow up with your primary care provider in 2-3 days, call for an appointment. Let them know you were seen in the Emergency Department and that we asked that you be seen for follow-up. We will electronically transmit a record of today's note if your PCP is in our system *If you do not have a primary care provider please contact [phone] to establish care with one of the [facility] primary care providers. *Return to Emergency Department if you should have any new, worsening, or concerning symptoms, such as [fever greater than 101F, chills, worsening pain, persistent vomiting or other bothersome symptoms]. Prescriptions: New ciprofloxacin HCl 500 mg tablet 500 mg PO BID 14 Days Qty: 28 0RF No Action Levemir FlexTouch U-100 Insuln 100 UNIT/1 ML insulin pen 30 unit SQ HS Qty: 0 fluticasone propion-salmeterol [Advair Diskus] 250 MCG/50 MCG blister with device 1 puff INH BID Qty: 0 Label Comments: taken twice today albuterol sulfate [Ventolin HFA] 90 MCG/PUFF HFA aerosol inhaler 2 puff INH BID Qty: 0 omeprazole 20 MG capsule,delayed release(DR/EC) 40 mg PO QDAY Qty: 0 calcium carb,cit-mag cit,ox-D3 1 tab PO QDAY Qty: 0 insulin aspart U-100 [Novolog Flexpen U-100 Insulin] 100 UNIT/1 ML insulin pen 20 unit SQ QAM Qty: 0 Label Comments: took 28 units levothyroxine 150 mcg tablet 125 mcg PO DAILY losartan 50 mg tablet 50 mg PO DAILY Rx Instructions: took 1/2 tab this AM ropinirole 0.25 mg tablet 0.5 mg PO BEDTIME fluoxetine 40 mg Capsule 40 mg PO DAILY hydrocodone-acetaminophen 5-325 mg Tablet 1 - 2 tab PO Q4-5H PRN (Reason: Pain, Severe (7-10)) Qty: 70 0RF Label Comments: few days ago hydroxyzine pamoate 25 mg capsule 25 mg PO PRN PRN (Reason: Itching) Referrals: Dorothy Jackson MD [Primary Care Provider] - Tae Carter DPM [Physician] - Visit Report Forms: Patient Portal/API
[2022-03-26 15:23] VITALS: BP 120/78; PULSE 68; RESP 16; O2SAT 99
== END 2022-03-26 15:23 | disposition home or self-care (01) ==
PROVIDERS: Emergency Provider Nurse Practitioner Critical Care Medicine; Family Provider Internal Medicine; PCP Internal Medicine
DX: E11.621 Type 2 diabetes mellitus with foot ulcer (principal)
CPT/HCPCS: 73620; 99283

== ENCOUNTER → 2022-04-09 10:15 | Outpatient (CLI) | payer MEDICARE, OTHER, SELFPAY ==
[2019-11-23 14:07] VITALS: BMI 24.1
== END ==
PROVIDERS: Family Provider Internal Medicine; PCP Family Medicine; Referring Provider Family Medicine; Visit Provider Surgery
DX: E11.621 Type 2 diabetes mellitus with foot ulcer (principal); L97.511 Non-pressure chronic ulcer of other part of right foot limited to breakdown of skin; L97.521 Non-pressure chronic ulcer of other part of left foot limited to breakdown of skin; E11.40 Type 2 diabetes mellitus with diabetic neuropathy, unspecified; F17.210 Nicotine dependence, cigarettes, uncomplicated; M79.674 Pain in right toe(s); M79.675 Pain in left toe(s)
CPT/HCPCS: 99203; 99212

== ENCOUNTER 2022-04-12 14:28 | Emergency (ER) | payer MEDICARE, OTHER, SELFPAY ==
[2019-11-23 14:07] VITALS: BMI 24.1
[2022-04-12 14:47] VITALS: BP 143/77; PULSE 77; RESP 17; TEMP 36.6; O2SAT 97; BMI 24.4
--- NOTE | 2022-04-12 17:37 | DI.RAD.S_ITS ---
PROCEDURE: XR LUMBAR SPINE 2-3V INDICATIONS: back pain. hx of spinal fusions TECHNIQUE: 3 views of the lumbar spine were acquired. COMPARISON: [facility] [place], CR, XR LUMBAR SPINE 2 OR 3 VIEWS, 10/09/2020, 8:57. [facility], CR, XR LUMBAR SPINE 2-3V, 11/23/2019, 11:02. FINDINGS: Postsurgical changes L2-L5 posterior fixation by means of bilateral rods and pedicle screws. New from prior study there is fracture of the left stabilizing shanelle. No abnormal lucency surrounding the hardware. IMPRESSION: L2-L5 posterior fixation construct with fractured left posterior stabilizing shanelle, new from prior study. Dictated by: John Paul Loyd M.D. on 04/12/2022 at 18:06 Approved by: John Paul Loyd M.D. on 04/12/2022 at 18:07
--- NOTE | 2022-04-12 18:38 | ED.BACK ---
HPI - Back Pain/Injury General Chief Complaint: Back Pain/Injury Stated Complaint: Lower back pain/history of spine surgery Time Seen by Provider: 04/12/22 18:07 Source: patient Mode of arrival: Ambulatory Limitations: no limitations History of Present Illness HPI Narrative: Patient is a 77-year-old male. Has a known history of lower back issues to include surgeries and fusions and fixations. He states that he started to have discomfort in his lower back earlier today. It is midline. Is difficult for him to stand and walk. He has tried some [id number] medications earlier today without any improvement. He is no neurologic symptoms to his legs. No change in bowel habits. No issues with urination. No trauma. Related Data Home Medications Medication Instructions Recorded Confirmed albuterol sulfate 90 mcg/actuation 2 puff INH BID ##0 05/02/16 05/13/21 aerosol inhaler (Ventolin HFA) fluticasone 250 mcg-salmeterol 50 1 puff INH BID ##0 05/02/16 01/08/21 mcg/dose blistr powdr for inhalation (Advair Diskus) insulin detemir U-100 100 unit/mL 30 unit SQ HS ##0 05/02/16 01/08/21 (3 mL) subcutaneous pen (Levemir FlexTouch U-100 Insulin) calcium carb,cit-mag cit,ox-D3 1 tab PO QDAY ##0 05/06/16 01/08/21 omeprazole 20 mg capsule,delayed 40 mg PO QDAY ##0 05/06/16 01/08/21 release insulin aspart U-100 100 unit/mL 20 unit SQ QAM ##0 12/16/16 01/08/21 (3 mL) subcutaneous pen (Novolog Flexpen U-100 Insulin aspart) levothyroxine 150 mcg tablet 125 mcg PO DAILY 10/27/17 01/08/21 losartan 50 mg tablet 50 mg PO DAILY 10/27/17 01/08/21 ropinirole 0.25 mg tablet 0.5 mg PO BEDTIME restless leg 10/27/17 01/08/21 syndrome fluoxetine 40 mg capsule 40 mg PO DAILY 11/16/19 01/08/21 hydroxyzine pamoate 25 mg capsule 25 mg PO PRN PRN Itching 01/08/21 01/08/21 Previous Rx's Medication Instructions Recorded hydrocodone 5 mg-acetaminophen 325 1 - 2 tab PO Q4-5H PRN Pain, 11/23/20 mg tablet Severe (7-10) #70 tabs cyclobenzaprine 10 mg tablet 10 mg PO TID PRN muscle spasm #14 04/12/22 tabs hydrocodone 5 mg-acetaminophen 325 1 tab PO Q4-6H PRN pain #10 tabs 04/12/22 mg tablet Allergies Allergy/AdvReac Type Severity Reaction Status Date / Time oxytetracycline Allergy Severe SWELLLING, Verified 04/12/22 14:48 [From TERRAMYCIN] COULDN'T BREATHE, HOSPITALIZED Penicillins [PENICILLINS] Allergy Severe SWELLING, Verified 04/12/22 14:48 COULDN'T BREATHE, HOSPITALIZED Cholinesterase Allergy Unknown STATES Verified 04/12/22 14:48 Inhibitor(Carbamate) THAT HE [CHOLINESTERASE HAS A INHIBITOR(CARBAMATE)] CHOLINESTERASE DEFICIENCY oxycodone [OXYCODONE] AdvReac Mild Gastrointestinal Verified 04/12/22 14:48 Upset Review of Systems Constitutional Constitutional: Reports system reviewed and no additional complaints, except as documented Musculoskeletal Musculoskeletal: Reports system reviewed and no additional complaints, except as documented Integumentary/Breasts Skin/Breast: Reports system reviewed and no additional complaints, except as documented Neurologic Neurologic: Reports system reviewed and no additional complaints, except as documented Hematologic/Lymphatic On Anticoagulants: No Patient History Medical History 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 Coma Coma COPD (chronic obstructive pulmonary disease) Current every day smoker Diabetes GERD (gastroesophageal reflux disease) [place] (hard of hearing) Hypertension Hypothyroid Insomnia Peripheral neuropathy [place] Pseudocholinesterase deficiency PTSD (post-traumatic stress disorder) RBBB (right bundle branch block) RLS (restless legs syndrome) Stable angina Surgical History History of lumbar fusion (2017) History of repair of left rotator cuff History of repair of right rotator cuff History of vasectomy Hx of arthroscopy of right knee Hx of bilateral cataract extraction Hx of fusion of cervical spine Hx of lumbosacral spine surgery Family History Mother Metastatic cancer Father Cancer Brother Type 1 diabetes Social History household members: spouse Smoking Status: Current every day smoker alcohol intake: current Smoking Status: Current every day smoker tobacco type: cigarettes alcohol intake frequency: holidays/special occasions only Substance Use Type: does not use Exam Initial Vital Signs Initial Vital Signs: Vital Signs Temperature 97.9 F 04/12/22 14:47 Pulse Rate 77 04/12/22 14:47 Respiratory Rate 17 04/12/22 14:47 Blood Pressure 143/77 H 04/12/22 14:47 Pulse Oximetry 97 04/12/22 14:47 Oxygen Delivery Method 04/12/22 14:47 HENMT Head: normal to inspection and normocephalic Resp Effort & Inspection: normal respiratory effort Cardio Rate: regular rate Back/Spine/Pelvis Thoracic/Lumbar Spine: paraspinal tenderness and lumbar spinal tenderness Neuro Gait: other (Can walk with a walker) Extrem General: capillary refill normal Course Orders Ordered: ED Orders 04/12/22 17:37 XR lumbar spine 2-3V Stat Discontinued Medications Hydrocodone Bitart/Acetaminophen (Hydrocodone/Acet 5/325 Prepack) 1 bottle MISC SEEINSTR ONE Stop: 04/12/22 18:51 Last Admin: 04/12/22 19:10 Dose: 1 bottle Documented By: DIMA Cyclobenzaprine HCl (Cyclobenzaprine 10 Mg Tablet) 10 mg PO NOW ONE Stop: 04/12/22 18:39 Last Admin: 04/12/22 18:50 Dose: 10 mg Documented By: DIMA Cyclobenzaprine HCl (Cyclobenzaprine 10 Mg Prepack) 1 bottle MISC SEEINSTR ONE Stop: 04/12/22 18:51 Last Admin: 04/12/22 19:10 Dose: 1 bottle Documented By: DIMA Hydromorphone HCl (Hydromorphone 1 Mg Inj) 1 mg IM NOW ONE Stop: 04/12/22 18:39 Last Admin: 04/12/22 18:49 Dose: 1 mg Documented By: DIMA Vital Signs Vital signs: Vital Signs - 8 hr 04/12/22 19:01 Pulse Rate 82 Respiratory Rate 18 Blood Pressure 141/71 H Pulse Oximetry 94 Oxygen Delivery Method Room Air MDM - Back Pain/Injury Imaging Data Extremity x-ray #1: Radiologist's Impression: [address] [address] XRay Report Signed Patient: Mak Ruano MR#: [id number] : 1945 Acct:[id number] Age/Sex: 77 / M Date of Service: 04/12/22 Loc: ED Accession Number: [id number] ?? Procedure: XR lumbar spine 2-3V Ordering Provider: Sharla Howard D.O. PROCEDURE:? XR LUMBAR SPINE 2-3V ? INDICATIONS:? back pain. hx of spinal fusions ? TECHNIQUE:? 3 views of the lumbar spine were acquired.? ? COMPARISON:? [facility], CR, XR LUMBAR SPINE 2 OR 3 VIEWS, 10/09/2020, 8:57.? [facility], , XR LUMBAR SPINE 2-3V, 11/23/2019, 11:02. ? FINDINGS:? ? Postsurgical changes L2-L5 posterior fixation by means of bilateral rods and pedicle screws.? New from prior study there is fracture of the left stabilizing shanelle.? No abnormal lucency surrounding the hardware. ? ? IMPRESSION:? L2-L5 posterior fixation construct with fractured left posterior stabilizing shanelle, new from prior study.? ? ? Dictated by: John Paul Loyd M.D. on 04/12/2022 at 18:06 ? ? Approved by: John Paul Loyd M.D. on 04/12/2022 at 18:07?? MDM Narrative Medical decision making narrative: His x-ray today does show concern about a fracture of the shanelle on the left side. Unsure if this is related to the discomfort that brought him in today or a incidental finding. He is no neurologic changes. Did discuss the case with Dr. Pardo on-call for Orthopedic surgery who stated that he was not having any neurologic symptoms that he could follow-up as an outpatient. Will send patient home with symptom control. He was given return precautions. He expressed understanding and agreement. Discharge Plan Departure Patient Disposition: Home Clinical Impression: Back pain Instructions: DI for Low Back Pain Activity Restrictions/Additional Instructions: At the beginning of next week contact your orthopedic doctor's office for follow-up to discuss the findings of the x-rays today. Take the medications as needed. Return to emergency department for any new or worsening symptoms. Prescriptions: New hydrocodone-acetaminophen 5-325 mg tablet 1 tab PO Q4-6H PRN (Reason: pain) Qty: 10 0RF cyclobenzaprine 10 mg tablet 10 mg PO TID PRN (Reason: muscle spasm) Qty: 14 0RF No Action Levemir FlexTouch U-100 Insuln 100 UNIT/1 ML insulin pen 30 unit SQ HS Qty: 0 fluticasone propion-salmeterol [Advair Diskus] 250 MCG/50 MCG blister with device 1 puff INH BID Qty: 0 Label Comments: taken twice today albuterol sulfate [Ventolin HFA] 90 MCG/PUFF HFA aerosol inhaler 2 puff INH BID Qty: 0 omeprazole 20 MG capsule,delayed release(DR/EC) 40 mg PO QDAY Qty: 0 calcium carb,cit-mag cit,ox-D3 1 tab PO QDAY Qty: 0 insulin aspart U-100 [Novolog Flexpen U-100 Insulin] 100 UNIT/1 ML insulin pen 20 unit SQ QAM Qty: 0 Label Comments: took 28 units levothyroxine 150 mcg tablet 125 mcg PO DAILY losartan 50 mg tablet 50 mg PO DAILY Rx Instructions: took 1/2 tab this AM ropinirole 0.25 mg tablet 0.5 mg PO BEDTIME fluoxetine 40 mg Capsule 40 mg PO DAILY hydrocodone-acetaminophen 5-325 mg Tablet 1 - 2 tab PO Q4-5H PRN (Reason: Pain, Severe (7-10)) Qty: 70 0RF Label Comments: few days ago hydroxyzine pamoate 25 mg capsule 25 mg PO PRN PRN (Reason: Itching) Referrals: Kushal Leon DO [Primary Care Provider] -
[2022-04-12] MEDS: HYDROMORPHONE 1 MG INJ IM (18:49)
[2022-04-12] MEDS: CYCLOBENZAPRINE 10 MG TABLET PO (18:50)
[2022-04-12 19:01] VITALS: BP 141/71; PULSE 82; RESP 18; O2SAT 94
[2022-04-12] MEDS: HYDROCODONE/ACET 5/325 PREPACK 1 BOTTLE MISC (19:10)
[2022-04-12] MEDS: CYCLOBENZAPRINE 10 MG PREPACK 1 BOTTLE MISC (19:10)
== END 2022-04-12 19:14 | disposition home or self-care (01) ==
PROVIDERS: Emergency Provider Emergency Medicine; Family Provider Internal Medicine; PCP Family Medicine
DX: M54.50 Low back pain, unspecified (principal); Z79.899 Other long term (current) drug therapy
CPT/HCPCS: 72100; 96372; 99283; J1170

== ENCOUNTER → 2022-04-21 11:50 | Outpatient (CLI) | payer MEDICARE, OTHER, SELFPAY ==
[2019-11-23 14:07] VITALS: BMI 24.1
--- NOTE | 2022-04-21 | DI.CT.S_ITS ---
PROCEDURE: CT LUMBAR SPINE WO CON INDICATIONS: Spinal stenosis, lumbar region TECHNIQUE: Noncontrast 3 mm thick sections acquired from the T12 level to the sacrum. Sagittal and coronal reformats were constructed. For radiation dose reduction, the following was used: automated exposure control. COMPARISON: [facility], , MR THORACIC SPINE WO CON, 09/09/2019, 13:25. [facility], CR, XR LUMBAR SPINE 2 OR 3 VIEWS, 02/04/2018, 13:00. [facility], CR, XR LUMBAR SPINE 2-3V, 11/23/2019, 11:02. [facility], CR, XR LUMBAR SPINE 2 OR 3 VIEWS, 02/23/2020, 13:45. [facility], CR, XR LUMBAR SPINE 2 OR 3 VIEWS, 10/09/2020, 8:57. [facility], , MR LUMBAR SPINE WO/W CON, 09/09/2019, 13:25. [facility], CR, XR LUMBAR SPINE 2-3V, 04/12/2022, 17:52. FINDINGS: Image quality: Excellent. Bones: Transitional spinal anatomy is present. There are small rudimentary ribs at the T12 level. The 1st non rib-bearing vertebral body is designated as L1, resulting in the lumbosacral transitional element being designated as L5. Please note that this numbering system differs from the system used on the lumbar spine MRI from 09/09/2019. Postsurgical changes are again seen extending from L2 through L5 with pedicle screws and interbody rods. A fractured right L5 pedicle screw is again noted. Right interbody shanelle extends from L2 through L4. Left interbody shanelle extends from L2 through L5. Previously seen fracture of the left interbody shanelle just superior to the L3 pedicle screw is less prominent on the current exam when compared to the radiographs from 04/12/2022. Multilevel laminotomies are noted. Disc spacers are seen at L2-3, L3-4, and L4-5. There is unchanged bony alignment. No acute vertebral body compression fractures. No suspicious lytic or blastic bony lesions. No pars defects. Probable bone graft donor site at the posterior right iliac bone. T12-L1: No significant narrowing of the bony spinal canal or neural foramina. L1-L2: There is mild circumferential disc bulging as well as mild to moderate bilateral facet hypertrophy and buckling of the ligamentum flavum, which result in moderate narrowing of the spinal canal as well as moderate left and [id number]-sb-[id number] right neural foraminal narrowing. L2-L3: Postsurgical changes from left hemilaminotomy and posterior fixation with decompression of the bony spinal canal. There is mild bilateral neural foraminal narrowing. L3-L4: Postsurgical changes from right hemilaminotomy and posterior fixation with decompression of the bony spinal canal. There is partial osseous fusion across the facet joints. Mild to moderate bilateral neural foraminal narrowing is noted. L4-L5: Postsurgical changes are seen from laminectomy and posterior fixation. The bony spinal canal is decompressed. There is osseous fusion of the bilateral facet joints. Moderate bilateral neural foraminal narrowing is noted. L5-S1: Sacralization of the L5 vertebra with rudimentary disc space. No significant spinal canal stenosis or neural foraminal narrowing. Soft tissues: No retroperitoneal masses or hematomas. Visualized aorta is normal in caliber. Aortic atherosclerotic calcifications are present. Diverticula are seen within the sigmoid colon. IMPRESSION: 1. Transitional spinal anatomy is noted. The 1st non rib-bearing vertebral body is designated as L1 and the lumbosacral transitional body is designated as L5. Please note that this numbering system differs from the system used on the report from the MRI lumbar spine dated 09/09/2019. 2. Postsurgical changes from laminotomies and posterior fixation extending from L2 through L5. Chronically fractured right L5 pedicle screw is again seen. Subtle nondisplaced fracture of the left interbody shanelle superior to the L3 pedicle screw is better demonstrated on radiographs dated 04/12/2022. 3. At L1-2, progressive degenerative changes result in moderate narrowing of the bony spinal canal that has progressed when compared to the prior MRI. There is moderate left and [id number] right neural foraminal narrowing at this level. 4. Additional ymye-hf-uwpbnbld multilevel degenerative changes do not appear significantly changed. Approved by: Enmanuel Hudson M.D. on 04/21/2022 at 15:25
== END ==
PROVIDERS: Family Provider Internal Medicine; PCP Family Medicine; Referring Provider Physician Assistant; Visit Provider Physician Assistant
DX: Z01.812 Encounter for preprocedural laboratory examination (principal); Z01.818 Encounter for other preprocedural examination; T84.216A Breakdown (mechanical) of internal fixation device of vertebrae, initial encounter; M48.061 Spinal stenosis, lumbar region without neurogenic claudication; M47.816 Spondylosis without myelopathy or radiculopathy, lumbar region; R73.9 Hyperglycemia, unspecified; N39.0 Urinary tract infection, site not specified
CPT/HCPCS: 36415; 72131; 80048; 81001; 83036; 85025; 93005; 93010

== ENCOUNTER → 2022-04-21 12:26 | Outpatient (CLI) | payer MEDICARE, OTHER, SELFPAY ==
[2019-11-23 14:07] VITALS: BMI 24.1
[2022-04-21 14:53] LABS: Appearance Urine UA CLEAR; Bilirubin Urine UA NEGATIVE (NEGATIVE); Color Urine UA YELLOW; Glucose Urine UA 2+ g/dL (Negative); Ketones Urine UA NEGATIVE (NEGATIVE); Leukocyte Esterase Urine UA NEGATIVE (NEGATIVE); Nitrite Urine UA NEGATIVE (Negative); Occult Blood Urine UA NEGATIVE (Negative); Protein Urine UA NEGATIVE (Negative); Specific Gravity Urine UA 1.015 (1.000-1.035); Urobilinogen Urine UA 0.2 E.U./dL (0.2)
[2022-04-21 14:56] LABS: Add Manual Diff / Slide Review NO; Basophils Absolute Auto 0 /uL (0-100); Basophils Percent Auto 0.5 % (0-2); Eosinophils Absolute Auto 200 /uL (0-450); Eosinophils Percent Auto 2.3 % (2-4); Hematocrit 47.2 % (41-53); Hemoglobin 15.9 g/dL (13.5-17.5); Lymphocytes Absolute Auto 1500 /uL (1100-4500); Lymphocytes Percent Auto 18.9 % (25-40); Mean Corpuscular HGB Conc 33.6 % (30-36); Mean Corpuscular Hemoglobin 30.4 PG (26-34); Mean Corpuscular Volume 90.5 fL (80-100); Monocytes Absolute Auto 600 /uL (0-900); Monocytes Percent Auto 7.9 % (3-14); Neutrophils Absolute Auto 5500 /uL (1500-7000); Neutrophils Percent Auto 70.4 % (50-75); Platelet Count 222 X10^3/uL (150-400); Red Blood Cell Count 5.22 X10^6/uL (4.5-5.9); Red Cell Distribution Width 13.6 % (11.6-14.8); White Blood Cell Count 7.8 X10^3/uL (4.5-11.0)
[2022-04-21 15:02] LABS: Amorphous Sediment Urine 1+; Bacteria Urine None Seen; Culture Indicated Urine Cult Not Indicated; RBC Urine None Seen (0-5/HPF); Squamous Epithelial Cell Urine 0-1 /HPF (0-5/HPF); WBC Urine 0-1/HPF (0-5/HPF)
[2022-04-21 15:05] LABS: Hemoglobin A1C% w Est Avg Glu 7.5 % (4.0-6.0)
[2022-04-21 15:20] LABS: BUN Creatinine Ratio 24.2 (6-22); Blood Urea Nitrogen 23 mg/dL (9-20); Calcium 9.7 mg/dL (8.4-10.2); Carbon Dioxide 27 mmol/L (22-32); Chloride 99 mmol/L (98-107); Estimated Glomerular Filt Rate > 60 mL/min (>60); Glucose 163 mg/dL (80-110); HEMOLYSIS < 15 (0-50); Potassium 4.1 mmol/L (3.4-5.1); Sodium 140 mmol/L (137-145)
== END ==
PROVIDERS: Family Provider Internal Medicine; PCP Family Medicine; Referring Provider Orthopaedic Surgery Orthopaedic Surgery of the Spine; Visit Provider Orthopaedic Surgery Orthopaedic Surgery of the Spine
DX: Z01.818 Encounter for other preprocedural examination (principal); R73.9 Hyperglycemia, unspecified; Z01.812 Encounter for preprocedural laboratory examination; N39.0 Urinary tract infection, site not specified
CPT/HCPCS: 36415; 80048; 81001; 83036; 85025; 93005

== ENCOUNTER → 2022-05-03 09:02 | Outpatient (CLI) | payer MEDICARE, OTHER, SELFPAY ==
[2019-11-23 14:07] VITALS: BMI 24.1
[2022-05-03 09:39] LABS: COVID19 -Nasal RAPID Negative (Negative)
== END ==
PROVIDERS: Family Provider Internal Medicine; PCP Family Medicine; Referring Provider Orthopaedic Surgery Orthopaedic Surgery of the Spine; Visit Provider Orthopaedic Surgery Orthopaedic Surgery of the Spine
DX: Z20.822 Contact with and (suspected) exposure to COVID-19 (principal)
CPT/HCPCS: 87635; C9803

== ENCOUNTER 2022-05-05 12:50 | Inpatient (IN) | payer MEDICARE, OTHER, SELFPAY ==
[2019-11-23 14:07] VITALS: BMI 24.1
[2022-05-02 07:17] VITALS: BMI 24.4
[2022-05-05] VITALS (12 sets, daily range): BP systolic 113–141; BP diastolic 48–91; PULSE 69–80; RESP 12–20; TEMP 35.7–36.7; O2SAT 88–98; BMI 24.4
[2022-05-05] MEDS: LACTATED RINGERS 1,000 ML 42 ML IV ×2 (13:44→16:00)
--- NOTE | 2022-05-05 14:46 | PM.PREOP ---
Pre-operative Note COVID-19 COVID-19 status: Negative Result date/Date tested (Pos, Neg/Pending): 05/04/22 Criteria for continued procedure: Expected advancement of disease process, Possibility delay results in more complex future surgery or treatment, Increased loss of function, Continuing or worsening of significant or severe pain, Deterioration of the patient's condition or overall health and Delay expected to result in less-positive ultimate med/surg outcome Interval Note History & Physical reviewed/Exam performed by Physician: Yes Changes to H&P: No
[2022-05-05] MEDS: CLINDAMYCIN 900 MG/50 ML PIGGYBACK 50 MG IV (15:45)
[2022-05-05] MEDS: BUPIVACAINE LIPOSOME 266 MG/20 ML VIAL INJ (16:09)
[2022-05-05] MEDS: BUPIVACAINE 0.5% W/ EPI (PF) 30 ML VIAL INJ (16:11)
--- NOTE | 2022-05-05 16:42 | P.OP_ITS ---
Operative Date/Time/Diagnoses Date of procedure: 05/05/22 Time of procedure: 15:30 Pre-op diagnosis: 1. L3-4, L4-5, L5-S1 history of fusion with hardware loosening 2. back pain secondary to hardware loosening Post-op diagnosis: same Procedure & Clinicians Procedure: 1. L3-4, L4-5, L5-S1 revision hardware segmental instrumentation 2. Exploration of fusion with repeat hemilaminectomy L3-4, L5-S1 3. Posterior lumbar fusion L3-4, L5-S1 Same procedure as scheduled: Yes Indications: Patient has been having acute onset back pain with x-ray showing breakage of hardware in patient's lumbar correlating with his back pain. Patient has been having difficulty performing activity of daily living. After discussing risks benefits of treatment options, patient elected proceed with surgery for revision and replacement of his hardware with exploration of fusion. Surgeon: Cipriano Hammonds Station Installer And Repairer: Pritesh Casey Click Yes if Unassisted: No Anesthesia Type: General Operative Notes Closure Type: primary Specimen(s): none sent Prosthetic devices, grafts, tissues, transplants, or devices: Globus revolve screws and CREO shanelle Applied: catheter Estimated Blood Loss (mL): 10 Blood products transfused: none Procedure in detail: Patient was seen in the preoperative area. Risks and benefits of the surgery was discussed with the patient. Informed consent was obtained from the patient and placed in the chart. Surgical site was marked. Patient was taken to the operative room. General anesthesia was administered. Prophylactic antibiotic was given to the patient less than 30 min before the incision was made. Patient was placed into a prone position on the Jered table. Patient's back was then prepped and draped in the sterile fashion. Time-out was performed at this time. Using patient's previous scar incision was made over the L3-4 L4-5 L5-S1 interval on the left side. Fascia was incised in line with skin incision. Patient's previously placed hardware over the L3-S1 level was identified by dissecting down to the level the hardware using a Bovie and a Currie. The locking caps which was removed using globus screwdriver. The locking shanelle was then removed from the tulips of the pedicle screws using a Kelsey. The pedicle screws were then removed using the screwdriver. The screws were found to have good purchase except at S1 level which was loose. The shanelle was found to be broken as x-ray shown between the L3 and L4 pedicle screws. The fusion mass on the left side was exposed by performing a left-sided hemilaminectomy at L3-4 L4-5 L5-S1 level. The hemilaminectomy was performed using the Kerrison rongeur to undercut the lamina as well removing additional epidural scar tissue for purpose of decompressing the epidural space. The fusion mass was explored and was found have visible motion indicating pseudoarthrosis at L3-4 and L5-S1 level. The fusion was solid between the L4-L5 level. Using the currie dissector, posterior-lateral decortication was performed at L3-4 L5-S1 level until bleeding cortical bone was identified. DBM bone grafting material was placed into the L3-4 L5-S1 posterior lateral gutter he order to accomplish posterolateral fusion at the L3-4 L5-S1 level. Using the C-arm, pedicle screws were placed into the L3-L4 L5 and S1 pedicles on the left. This was done by placing the Jamshidi needle into the pedicles, then placing the guidewires over the Jamshidi needle, and finally placing the cannulated screws over the guidewires. After the pedicle screws were placed, a titanium shanelle was locked into the heads of the pedicle screws using locking caps and torque limiting screwdriver. After all the hardware was placed, and confirmed with AP and lateral C-arm imaging, the wound was then irrigated with sterile normal saline and packed with Ray-Jie gauze for 3 min to accomplish hemostasis. After the gauze was removed the deep fascia was closed with #1 Vicryl suture. The subcutaneous layer was closed with 2-0 Vicryl. The skin was closed with skin dior. Patient tolerated the procedure well. There were no complications. Complications: none Post-operative Condition: stable Disposition: PACU Plan for aftercare: Admit to inpatient hospital
--- NOTE | 2022-05-05 16:54 | DI.RAD.S_ITS ---
PROCEDURE: XR LUMBAR SPINE 2-3V INDICATIONS: LEFT HARDWARE EXCHANGE TECHNIQUE: Three intraoperative fluoroscopic views of the lumbar spine were acquired. COMPARISON: [facility], CR, XR LUMBAR SPINE 2-3V, 04/12/2022, 17:52. FINDINGS: Posterior fusion hardware in the lumbar spine from L3 through S1. There is a fractured screw to the right aspect of S1. The fractured left fixation shanelle is no longer seen. And intact left fixation shanelle is present. Disc spacers are present at every level. Alignment remains normal. IMPRESSION: Intraoperative fluoroscopy for hardware exchange. Dictated by: Nuzhat Dave M.D. on 05/05/2022 at 16:08 Approved by: Nuzhat Dave M.D. on 05/05/2022 at 16:10
[2022-05-05] MEDS: SODIUM CHLORIDE 0.9% 1,000 ML 100 ML IV (17:15)
--- NOTE | 2022-05-05 17:50 | SUR.PHASEI ---
1730: Pt A&Ox4, denies any distress, dressing C/D/I, VSS, breathing without any difficulties and ready to transfer to room. Report given to receiving RN using SBAR with time allowed for questions. Pt transferred to room 222 with all personal belongings including bilat hearing aids, dentures, cane and 1 plastic bag of personal items. Bedside handoff given, with duel visual of dressing C/D/I. Transfer of care completed. Called spouse, left message that pt is doing well and transferred to room.
--- NOTE | 2022-05-05 18:08 | PC.NURSE ---
Patient brought up from PACU to room 222, oriented to room and call light. Urinal and call light placed within reach. Dressing to patient's back is CDI without drainage upon arrival. Denies pain. Continue to monitor.
[2022-05-05] MEDS: ALBUTEROL 2.5 MG/3 ML NEB (ADULT) INH (19:59)
[2022-05-05] MEDS: BUDESONIDE 0.5 MG/2 ML NEB INH (19:59)
[2022-05-05] MEDS: ROPINIROLE 0.25 MG TABLET 0.5 MG PO (20:45)
[2022-05-05] MEDS: TAMSULOSIN 0.4 MG CAPSULE PO (20:45)
[2022-05-05] MEDS: DOCUSATE 100 MG CAPSULE PO (20:45)
[2022-05-05] MEDS: SENNOSIDES 8.6 MG TABLET 17.2 MG PO (20:45)
[2022-05-05] MEDS: INSULIN GLARGINE 100 UNIT/ML 3ML PEN 38 UNIT SUBCUT (20:49)
[2022-05-06] MEDS: CLINDAMYCIN 900 MG/50 ML PIGGYBACK 50 MG IV ×2 (00:22→08:17)
[2022-05-06 00:40] VITALS: BP 105/59; PULSE 72; RESP 20; TEMP 36.9; O2SAT 94
[2022-05-06 04:00] VITALS: BP 96/53; PULSE 64; RESP 20; TEMP 37.1; O2SAT 95
[2022-05-06] MEDS: PANTOPRAZOLE DR 40 MG TABLET PO (05:16)
[2022-05-06] MEDS: LEVOTHYROXINE 125 MCG TABLET PO (05:16)
[2022-05-06] MEDS: BUDESONIDE 0.5 MG/2 ML NEB INH (07:31)
[2022-05-06] MEDS: ALBUTEROL 2.5 MG/3 ML NEB (ADULT) INH ×2 (07:31→11:05)
--- NOTE | 2022-05-06 07:31 | PM.DS.1 ---
History of Present Illness History of Present Illness Date Patient Seen: 05/06/22 Time Patient Seen: 07:31 Chief complaint: L3-S1 TLIF Revision Narrative: Patient is awake and side lying in bed. He requires hearing aids for conversation. States he is not having any pain and has not required any medication since surgery. He did not have a Rosado catheter and has been urinating without difficulty using bedside urinal. He is eager to work with PT this morning and would like to go home with his later today. Patient has assistive devices to walk and states he has pain medication at home including oxycodone left over from previous injury. Discharge Providers Provider Date of admission: 05/05/22 12:50 Discharge Date: 05/06/22 Primary care physician: PAGE Buck Consults: 05/05/22 17:40 Consult to Occupational Therapy Evaluate & Treat Comment: Physician Instructions: Evaluate and treat Consult to Physical Therapy Evaluate & Treat Comment: Physician Instructions: Evaluate and Treat Discharge provider: Shannon Gao PA-C Summary Hospital Course Discharge Diagnosis: L3-S1 TLIF Revision Hospital Course: Operative Date/Time/Diagnoses Date of procedure: 05/05/22 Time of procedure: 15:30 Pre-op diagnosis: 1. L3-4, L4-5, L5-S1 history of fusion with hardware loosening 2. back pain secondary to hardware loosening Post-op diagnosis: same Procedure & Clinicians Procedure: 1. L3-4, L4-5, L5-S1 revision hardware segmental instrumentation 2. Exploration of fusion with repeat hemilaminectomy L3-4, L5-S1 3. Posterior lumbar fusion L3-4, L5-S1 Same procedure as scheduled: Yes Indications: Patient has been having acute onset back pain with x-ray showing breakage of hardware in patient's lumbar correlating with his back pain. Patient has been having difficulty performing activity of daily living.? After discussing risks benefits of treatment options, patient elected proceed with surgery for revision and replacement of his hardware with exploration of fusion. 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 Operator [employer] Warfare: Pritesh Casey Click Yes if Unassisted: No Anesthesia Type: General Operative Notes Closure Type: primary Specimen(s): none sent Prosthetic devices, grafts, tissues, transplants, or devices: Globus revolve screws and CREO shanelle Applied: catheter Estimated Blood Loss (mL): 10 Blood products transfused: none Exam Vital Signs (past 8 hours): - 05/06/22 00:40 05/06/22 04:00 Temperature 98.5 F 98.8 F Pulse Rate 72 64 Respiratory Rate 20 20 Blood Pressure 105/59 L 96/53 L Pulse Oximetry 94 95 Oxygen Flow Rate 0 0 Fraction of Inspired Oxygen 21 SaO2/FiO2 Ratio 461 Oxygen Delivery Method Room Air Oxygen Flow Rate 0 Narrative Exam Narrative: Awake, alert, and oriented. Hard of hearing. Strength and sensation intact to bilateral lower extremities, warm well perfused. Bilateral calves are soft, compressible, nontender with no palpable cords or masses. Intraoperative dressing clean, dry, and intact. 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 [place] COPD (chronic obstructive pulmonary disease) Current every day smoker Diabetes Episode of syncope (04/19/20) GERD (gastroesophageal reflux disease) [place] (hard of hearing) Hypertension Hypothyroid Insomnia Peripheral neuropathy Polio Pseudocholinesterase deficiency PTSD (post-traumatic stress disorder) RBBB (right bundle branch block) RLS (restless legs syndrome) Stable angina Surgical History History of lumbar fusion (2017) History of lumbar spinal fusion (11/23/19) History of repair of left rotator cuff History of repair of right rotator cuff History of vasectomy Hx of arthroscopy of right knee Hx of bilateral cataract extraction Hx of fusion of cervical spine Hx of lumbosacral spine surgery Family History Mother Metastatic cancer Father Cancer Brother Type 1 diabetes Social History household members: spouse Smoking Status: Current every day smoker alcohol intake: current Discharge Assessment & Plan Assessment and Plan Assessment: L3-S1 TLIF Revision Plan of Treatment: Patient is progressing as expected after surgery. Patient may walk as physical therapy, educated about restrictions: no bending, twisting, or lifting more than 2 pounds until follow up visit. Continue multimodal pain regimen as needed. Patient has not needed any pain medication since time of surgery, though he was given prescriptions for oxycodone, cyclobenzaprine, and APAP as requested. Follow up as scheduled 2 weeks after surgery for wound check or sooner if needed. Discharge Plan Discharge Plan Patient Disposition: Home Provider Discharge Comment: Discharge when safe and cleared by Physical therapy Discharge orders & Medications Prescriptions: New cyclobenzaprine 10 mg Tablet 10 mg PO TID PRN (Reason: muscle spasm) Qty: 36 0RF acetaminophen 325 mg Tablet 650 mg PO Q6HR PRN (Reason: Pain, Mild (1-3)) Qty: 60 0RF oxycodone 5 mg Tablet 10 mg PO Q3HR PRN (Reason: Pain, Severe (7-10)) 7 Days Qty: 14 0RF Continued Levemir FlexTouch U-100 Insuln 100 UNIT/1 ML insulin pen 38 unit SQ HS Qty: 0 albuterol sulfate [Ventolin HFA] 90 MCG/PUFF HFA aerosol inhaler 2 puff INH BID PRN (Reason: Shortness Of Breath) Qty: 0 omeprazole 20 MG capsule,delayed release(DR/EC) 40 mg PO QDAY Qty: 0 calcium carb,cit-mag cit,ox-D3 1 tab PO QDAY Qty: 0 levothyroxine 150 mcg tablet 125 mcg PO DAILY losartan 50 mg tablet 25 mg PO DAILY Rx Instructions: took 1/2 tab this AM ropinirole 0.25 mg tablet 0.5 mg PO BEDTIME fluoxetine 40 mg Capsule 20 mg PO DAILY cyclobenzaprine 10 mg tablet 10 mg PO TID PRN (Reason: muscle spasm) Qty: 14 0RF fluticasone propion-salmeterol [Wixela Inhub] 250-50 mcg/dose Blister With Device 1 inh INHALATION BID tamsulosin 0.4 mg Capsule 0.4 mg PO BEDTIME empagliflozin 25 mg Tablet 12.5 mg PO QAM naproxen sodium [Aleve] 220 mg Capsule 220 mg PO BEDTIME PRN (Reason: Pain) Follow up/Referrals: Jenni Ortiz ARNP [Primary Care Provider] - Cipriano Hammonds MD [Physician] - As previously scheduled (Follow up as scheduled with Pritesh Casey PA-C on 05/16/22 at 11:00am at [facility]. ) Diet/Activity/Treatments Diet: Diet as Tolerated Activity: Walk as tolerated. No bending, twisting, lifting more than 2 pounds. Cold/Heat Therapy: Ice as needed. Skin/Wound/Dressing Care Report to your healthcare provider any signs of infection, such as:: chills, fever, night sweats, unusual drainage and unusual redness Dressing: Keep dressing clean, dry, and intact until follow up visit. Call our office to replace bandage if it gets wet. Visit Report/Discharge Packet Instructions: DI for Transforaminal Lumbar Interbody Fusion Stand Alone Forms: Patient Portal/API, Stroke Signs & Symptoms, Surgery Discharge Discharge Data Primary Care Provider: Jenni Ortiz VTE Deep Vein Thrombosis/Pulmonary Embolism Present on Admission: No
[2022-05-06 07:49] VITALS: O2SAT 94
[2022-05-06] MEDS: FLUoxetine 20 MG CAPSULE PO (08:17)
[2022-05-06] MEDS: DOCUSATE 100 MG CAPSULE PO (08:17)
[2022-05-06] MEDS: LOSARTAN 50 MG TABLET 25 MG PO (08:22)
[2022-05-06 08:25] VITALS: BP 114/60; PULSE 74; RESP 18; TEMP 36.8; O2SAT 92
--- NOTE | 2022-05-06 09:00 | PT.IIE ---
Current Diagnoses Other mechanical complication of other internal orthopedic devices, implants and grafts, initial encounter (05/05/22) Pain due to internal orthopedic prosthetic devices, implants and grafts, initial encounter (05/05/22) Arthrodesis status (05/05/22) Surgery Performed Operation Date: 05/05/22 14:15 Actual Procedures p L3-S1 HWR, L3-S1 PSF instrumentation - Cipriano Hammonds MD Surgical History (Last Reviewed 05/06/22 @ 07:42 by Shannon Gao PA-C) History of lumbar fusion (2016) History of lumbar spinal fusion (11/23/19) History of repair of left rotator cuff History of repair of right rotator cuff History of vasectomy Hx of arthroscopy of right knee Hx of bilateral cataract extraction Hx of fusion of cervical spine Hx of lumbosacral spine surgery Medical History (Last Reviewed 05/06/22 @ 07:42 by Shannon Gao PA-C) 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 Coma Coma COPD (chronic obstructive pulmonary disease) Current every day smoker Diabetes Episode of syncope (04/19/20) GERD (gastroesophageal reflux disease) HOPI (hard of hearing) Hypertension Hypothyroid Insomnia Peripheral neuropathy Polio Pseudocholinesterase deficiency PTSD (post-traumatic stress disorder) RBBB (right bundle branch block) RLS (restless legs syndrome) Stable angina Physical Therapy Inpatient Evaluation/Re-Eval M1 PT/OT-IP Prior Functional Status Start: 05/06/22 10:40 Freq: NEEDED Status: Discharge Protocol: Document 05/06/22 10:17 [facility] (Rec: 05/06/22 11:03 [facility] [id number]) Medical Review Prior Functional Status Communication Independent Mobility and Gait Use of SPC outside. Activities of Daily Living and IADL's Pt's having to asisst with shoes and socka at times due to pain. Social History Household Members spouse Living Arrangements Mobile home Number of Stairs To Enter/Railing? 6 short steps with right rail. Home Environment High Toilet,Walk in Shower Home Equipment Four Wheel Walker,Straight Cane,Hand Held Shower,Grab Bars In Shower M1 PT/OT-IP Prior Functional Status Start: 05/06/22 13:13 Freq: NEEDED Status: Active Protocol: Document 05/06/22 09:00 AB (Rec: 05/06/22 13:23 AB [id number]) Medical Review Prior Functional Status Medical History Reviewed Yes Communication able to make needs known Mobility and Gait pt stated that he is modified independent with all mobilities and ambulation using a SPC Social History Household Members spouse Living Arrangements Mobile home Number of Floors (Floors) One Floor Number of Stairs To Enter/Railing? 5 steps R rail ascending Home Environment High Toilet,Walk in Shower Home Equipment Four Wheel Walker,Straight Cane,Hand Held Shower Additional Social History Comment Has toilet safety frame pt has an adjustable bed M2 PT-IP Current Condition Start: 05/06/22 13:13 Freq: NEEDED Status: Active Protocol: Document 05/06/22 09:00 [facility] (Rec: 05/06/22 13:23 [facility] Physical Therapy Current Condition Current Condition Evaluation Date 05/06/22 Treatment Diagnosis s/p L3-4, L4-5, L5-S1 instru/ TLIF; difficulty in walking Onset Date 05/05/22 M3 PT-IP Subjective Start: 05/06/22 13:13 Freq: NEEDED Status: Active Protocol: Document 05/06/22 09:00 [facility] (Rec: 05/06/22 13:23 [facility] Subjective Physical Therapy Visit Type Type Initial Evaluation Visit Start Time 09:00 Visit Stop Time 09:45 Total Visit Minutes 45 Number of TRICHOLOGIST Visits 0 Physical Therapy Visit Comments Patient Comments agreeable to do PT Therapy Pain Assessment Pain Present Pain Present Denied Pain M4 PT-IP Mobility and Gait Start: 05/06/22 13:13 Freq: NEEDED Status: Active Protocol: Document 05/06/22 09:00 AB (Rec: 05/06/22 13:23 [facility]) PT-Bed Mobility Assessment Rolling Type of Rolling Log Rolling Level of Assist Standby Assistance Supine to Sit Supine to Sit Standby Assistance Sit to Supine Sit to Supine Standby Assistance PT-Transfer Assessment Sit to and From Stand Sit to and from Stand Standby Assistance Equipment Transfer Assistive Device Gait Belt,Front Wheeled Walker ,4 Wheeled Walker Orthotic/Prosthetic Devices or Brace: No Transfers Transfer Destination Chair Transfer Technique ambulated Transfer Ability Level of Assist Standby Assistance Comments Mobility Comments educated pt on back precautions and log roll bed mobility. pt completed log roll supine to sit SBA. able to sit on EOB SBA. completed sit to stand SBA and with cues . pt repeated stand<>sit and completed SBA without cues. pt can be impulsive and educated on safety. pt ambulated in room using FWW SBA ~ 40 ft and sat on chair. agreed to do stair. completed sit to stand from the chair SBA and ambulated ~ 200 ft using 4WW SBA. completed up/down 3 steps using R rail ascending x 2 sets SBA to CGA. pt ambulated back to his room using 4WW SBA. agreed to sit on the chair. positioned on the chair. call light and table placed within reach. pt and spouse without any concerns. Gait Assessment Gait Gait Assistance Required: Standby Assistance Distance (Feet) 200 Able to Maintain Weight Bearing Status Yes During Gait Assistive Devices Assistive Device Gait Belt,Front Wheeled Walker ,4 Wheeled Walker Orthotic/Prosthetic Devices or Brace: No Gait Deviations General Gait Pattern Decreased Feet Clearance Factors Limiting Gait Function Factors Limiting Gait Function Decreased Activity Tolerance, Decreased Strength,Limited Range of Motion,Poor Balance, Poor Safety Awareness Stair Climbing Assessment Evaluation Level of Assist On Stairs Standby Assistance,Contact Guard Assistance Devices Stair Climbing Assistive Devices Right Railing Technique/Endurance Stair Climbing Direction Ascend and Descend Stair Climbing Technique Step to Step Number of Steps Climbed 3 Query Text: Stair Climbing Set # Repetitions (reps) 2 PT-Balance Assessment Sitting Balance and Reactions Static Sitting Balance Ability Normal Dynamic Sitting Balance Ability Normal Standing Balance and Reactions Static Standing Balance Ability Good Dynamic Standing Balance Ability Fair Device Used 4WW M5 PT-IP Objective Assessments Start: 05/06/22 13:13 Freq: NEEDED Status: Active Protocol: Document 05/06/22 09:00 AB (Rec: 05/06/22 13:23 [id number]) Orientation Orientation/Cognition Level of Alertness Alert Orientation Name,Age,Place,Situation Language Function Ability Hard of Hearing Safety Awareness Decreased Safety Awareness Memory Description No Deficits Noted Gross Range of Motion Lower Extremity ROM Assessment Within Functional Limits Strength Lower Extremity Strength Hip 4-/5 Knee 4-/5 Sensation Assessment Sensation Gross Sensation WNL Muscle Tone Muscle Tone WNL Yes M6 PT-IP Treatment Start: 05/06/22 13:13 Freq: NEEDED Status: Active Protocol: Document 05/06/22 09:00 AB (Rec: 05/06/22 13:23 [email or web address]) Physical Therapy Treatment Education Education Provided Precautions,Weight Bearing Status,Post-Op Packet,Safety M7 PT-IP Assessment and Plan Start: 05/06/22 13:13 Freq: NEEDED Status: Active Protocol: Document 05/06/22 09:00 AB (Rec: 05/06/22 13:23 AB [id number]) PT Summary Assessment and Plan Potential Rehabilitation Potential Good Status of Condition at Evaluation Stable Summary Impairments Pain,ROM,Strength,Balance, Coordination,Sensation,Tone, Cognition,Bed Mobility, Transfers,Gait,Activity Tolerance Assessment Summary pt requiring SBA to CGA with mobility using 4WW and plans to go home and spouse to assist him. pt may go home when medically stable. Goals Bed Mobility Goal Independent Transfer Goal Independent,Four Wheeled Walker Gait Goal Independent Gait Distance 300 Other Goals up/down 5 steps R rail ascending mod I Days to Meet Goals 5 Frequency of Treatment Frequency Of Treatment Twice a Day Treatment Plan Physical Therapy Treatment Plan Bed Mobility Training,Transfer Training,Gait Training, Therapeutic Exercise,Balance Retraining,Post Op Education, Discharge Planning,Hot or Cold Pack,Neuromuscular Re-ed, Coordination Retraining,Manual Therapy Precautions Lumbar Precautions Log Roll,No Twisting,Limit Bending,Lifting Restriction of 10 lbs,Gait Belt above Incisional Area Recommendations To Nursing Amount of Assist Needed 1 Person Assist Discharge Recommendations PT Discharge Recommendations Home with Assistance Transportation Needs at Discharge Private Vehicle
--- NOTE | 2022-05-06 10:40 | OT.IP.EVAL ---
Current Diagnoses Other mechanical complication of other internal orthopedic devices, implants and grafts, initial encounter (05/05/22) Pain due to internal orthopedic prosthetic devices, implants and grafts, initial encounter (05/05/22) Arthrodesis status (05/05/22) Surgery Performed Operation Date: 05/05/22 14:15 Actual Procedures p L3-S1 HWR, L3-S1 PSF instrumentation - Cipriano Hammonds MD Past Medical History (Last Reviewed 05/06/22 @ 07:42 by Shannon Gao PA-C) 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 Coma Coma COPD (chronic obstructive pulmonary disease) Current every day smoker Diabetes Episode of syncope (04/19/20) GERD (gastroesophageal reflux disease) [place] (hard of hearing) Hypertension Hypothyroid Insomnia Peripheral neuropathy Polio Pseudocholinesterase deficiency PTSD (post-traumatic stress disorder) RBBB (right bundle branch block) RLS (restless legs syndrome) Stable angina Surgical History (Last Reviewed 05/06/22 @ 07:42 by Shannon Gao PA-C) History of lumbar fusion (2016) History of lumbar spinal fusion (11/23/19) History of repair of left rotator cuff History of repair of right rotator cuff History of vasectomy Hx of arthroscopy of right knee Hx of bilateral cataract extraction Hx of fusion of cervical spine Hx of lumbosacral spine surgery Occupational Therapy Inpatient Evaluation/Re-Eval M1 PT/OT-IP Prior Functional Status Start: 05/06/22 10:40 Freq: NEEDED Status: Active Protocol: Document 05/06/22 10:17 [facility]3] (Rec: 05/06/22 11:03 [facility]3] [id number]) Medical Review Prior Functional Status Communication Independent Mobility and Gait Use of SPC outside. Activities of Daily Living and IADL's Pt's having to asisst with shoes and socka at times due to pain. Social History Household Members spouse Living Arrangements Mobile home Number of Stairs To Enter/Railing? 6 short steps with right rail. Home Environment High Toilet,Walk in Shower Home Equipment Four Wheel Walker,Straight Cane,Hand Held Shower,Grab Bars In Shower M2 OT-IP Current Condition Start: 05/06/22 10:40 Freq: Status: Active Protocol: Document 05/06/22 10:17 [facility]3] (Rec: 05/06/22 11:03 [facility]3] [id number]) Occupational Therapy Current Condition Current Condition Evaluation Date 05/06/22 Treatment Diagnosis S/p L3-S1 TLIF revision Diagnosis Onset Date 05/05/22 Post Operative Precautions Lumbar Precautions Log Roll,No Twisting,Limit Bending,Lifting Restriction of 10 lbs,Gait Belt above Incisional Area M3 OT- IP Subjective and Pain Start: 05/06/22 10:40 Freq: Status: Active Protocol: Document 05/06/22 10:17 [facility]3] (Rec: 05/06/22 11:03 [facility]3] [id number]) OT- Subjective Occupational Therapy Visit Type Type Initial Evaluation Visit Start Time 10:17 Visit Stop Time 10:40 Total Visit Minutes 23 Occupational Therapy Visit Comments Patient Comments Pt not wanting to shower and just wanting to get dressed so able to go home. Pt's present for OT eval. Patient/Caregiver Goals To go home. OT Pain Assessment Pain When Pain Assessed At Rest Pain Present Pain Present Denied Pain M4 OT- IP ADL's Start: 05/06/22 10:40 Freq: Status: Active Protocol: Document 05/06/22 10:17 [facility]] (Rec: 05/06/22 11:03 [facility]3] [id number]) OT QZL-Hwar-Gczdfsm Comments OT Self-Feeding Comments Not at meal time. OT ADL-Grooming Comments OT Grooming Comments Pt not wanting to do at this time. OT ADL-Oral Care Comments Oral Care Comments Reminded pt best to spit into a cup to best follow his back precautions. OT ADL-Dressing General Eval Lower Body Dressing Ability Maximum Assistance Areas Needing Assistance Socks,Shoes Comments OT Dressing Comments Pt states threw out his old sock aid as he did not recall what it was for. Encouraged pt to get another sock aid, pt states to just have his assist for socks and shoes. OT ADL-Toileting Comments OT Toileting Comments Educated easier to stand to wipe and use of wet ones. ALso to use a urinal at night. OT ADL-Bathing Comments OT Bathing Comments Pt insistent on not showering and does not feel that a shower chair is needed. Strongly recommended a shower chair will be safer. Pt's agrees as well. M5 OT- IP IADL's Start: 05/06/22 10:40 Freq: Status: Active Protocol: Document 05/06/22 10:17 [facility]3] (Rec: 05/06/22 11:03 [facility]3] [id number]) OT-Instrumental Activities of Daily Living Home Safety Awareness Home Safety Comments Pt needing reminders for his back precautions and also a bit impulsive. Medication Management Medication Management Caregiver Provides Supervision Money Management Money Management Caregiver Provides Assistance Meal Preparation Meal Preparation Caregiver Provides Assist Pathology Laboratory Technologist Pathology Laboratory Technologist Caregiver Provides Assist Driving Driving Concerns Identified Regarding Safety M6 OT- IP Functional Cognition Start: 05/06/22 10:40 Freq: Status: Active Protocol: Document 05/06/22 10:17 [facility]3] (Rec: 05/06/22 11:03 [facility]3] [id number]) Cognitive Factors Limiting Selfcare Function Cognitive Ability Level of Alertness Alert Patient Orientation Name,Place,Situation Attention Span Ability Capable of Focused Attention, Capable of Sustained Attention Ability to Follow Commands Able to Follow One Step Commands Memory Description Short Term Impaired Safety Awareness Underestimates Need for Assistance Cognitive Comments Cognitive Assessment Comments Pt needing reminders for his back precautions and how to incorporate them during ADl and mobility needs. Pt tends to be impulsive as well. OT- Vision and Hearing OT- Hearing Assessment OT- Hearing Assessment Hearing Impaired OT- Vision Assessment Vision History Cataracts Visual Acuity Glasses For Reading M7 OT- IP Mobility and Balance Start: 05/06/22 10:40 Freq: Status: Active Protocol: Document 05/06/22 10:17 [facility]3] (Rec: 05/06/22 11:03 [facility]3] [id number]) OT-Transfer Assessment Sit to and From Stand Sit to and from Stand Standby Assistance Comments Mobility Comments Pt able to come to stand with SBA so able to tyrell his pants. OT- Balance Assessment Sitting Balance and Reactions Static Sitting Balance Ability Normal Dynamic Sitting Balance Ability Good Standing Balance and Reactions Static Standing Balance Ability Good Dynamic Standing Balance Ability Fair M9 OT- IP Assessment and Plan Start: 05/06/22 10:40 Freq: Status: Active Protocol: Document 05/06/22 10:17 [facility]3] (Rec: 05/06/22 11:03 [facility]3] [id number]) OT Summary Assessment and Plan Potential Rehabilitation Potential Good Analytic Complexity at Evaluation Low Summary OT Impairments Pain,Balance,Functional Mobility,Dressing,Toileting, Bathing,Toilet Transfers, Shower Transfers Progress Towards Goals Progressing Toward Goals Assessment Summary Pt Low complexity and main barriers ar pt is impulsive and insistent in his care and tends to not follow his back precautions and needing reminders to do so. Pt recommended to get a shower chair, sock aid and lagging machine operator to assist with safety and follow through of his back precautions for ADL needs. Pt has a supportive to assist him at home. Goals Dressing Goal Independent Toileting Goal Independent Bathing Goal Independent Toilet Transfer Goal Independent Shower Transfer Goal Independent Days to Meet Goals 2 Frequency of Treatment Frequency Of Treatment Once a Day Treatment Plan OT Treatment Plan ADL Training,Functional Cognition Training,Functional Mobility,Patient/Family Education,Discharge Planning Discharge Recommendations OT Discharge Recommendations Home with 03/11 Assist Available Home Equipment Needs shower chair, sock aid, lagging machine operator, long handled sponge Transportation Needs at Discharge Private Vehicle
--- NOTE | 2022-05-06 11:17 | CM.DANOTE ---
DCP: Case received, EMR reviewed and met with patient. Introduced self and role. Was able to obtain information regarding patient's baseline activity level at home prior to his surgery. DCP assessment completed with information currently available. Patient is a 77 year old male who admitted yesterday afternoon to the care of the orthopedic team. PCP: Dr. Ortiz ([facility]). Payer: confirmed: Medicare/[employer]. Patient came to the hospital for a surgical procedure. He had L3-4, L4-5, L5-S1 revision hardware segmental instrumentation, this was secondary to L3-4, L4-5, L5-S1 history of fusion with hardware loosening. Met with patient in his room. He is alert and oriented, quite talkative. Confirmed that he resides in [place] with his spouse, Hortencia. He is independent at baseline, does use a cane, has a couple of stairs to enter the home. Patient is still driving. He stated, he has been through surgeries before, knows what to expect. He has been going to outpatient P.T in [place] at [facility]. Patient is retired [employer]. P: Patient is discharging home today. Had seen him walking in the hallway with four wheel walker with P.T. Tasia Patrick RN/Local Bulk Driver Discharge Planning/Care Management CM Discharge Assessment Start: 05/06/22 11:16 Freq: Status: Active Protocol: Document 05/06/22 11:16 (Rec: 05/06/22 11:17 [id number]) Discharge Planning Assessment Assigned Software Installer Tasia Patrick RN/Local Bulk Driver Advance Directives? No History Provided By Patient,Medical Record Prior Living Arrangements Mobile home Household Members spouse Type of transporation used prior to Drives own vehicle admit Independent with ADL's Yes Is patient alert and oriented? Yes Caregiver for Another No DME Already Rented / Owned Cane Patient/Family Preference OP PT Therapy Barriers to Discharge No Discharge Plan Home Transportation Arrangement Spouse Referrals Initiated None needed Whiteboard Updated in Patient Room with Yes name and ext. # of Software Installer Review Status In Process Next Review Type Continued Stay Review Pre-Anesthesia Assessment Start: 05/02/22 07:17 Freq: Status: Complete Protocol: Document 05/02/22 07:17 [facility] (Rec: 05/02/22 08:27 [facility] [id number]) Pre-Anesthesia Assessment PAC Comment Pseudocholinesterase Deficiency Patient Information Reviewed Via Phone Assessment Assessment Completed With Patient Diagnostic Results BMP/CMP,CBC,EKG,Urinalysis Comment Labs/EKG @ [facility] 04/21/22, COVID screen @ [facility] 05/03/22 Primary Care Provider Jenni Ortiz Seen Specialist in Last 12 Months Yes Specialist Seen Emergency,Orthopedist Primary Language Ukrainian Preferred Language Ukrainian Property Analyst Required No Height 5 ft 11 in Weight 175 lb Body Mass Index (BMI) 24.4 Hearing Ability Hearing Impaired,Use of Hearing Aid Visual Assist Glasses Dentition Type Full- Upper & Lower Barriers to Learning Auditory Hx Anesthesia Reactions Yes: Pseudocholinesterase Deficiency Additional comment My esophagus doesn't close like it should due to my neck surgery Hx Family Anesthesia Reaction No Hx Malignant Hyperthermia No Hx Blood Transfusions Yes: Age 6 due to going through a glass door Hx Blood Transfusion Reaction No Anesthesia Review Requested No Halftone Operator No alcohol intake current alcohol intake frequency holidays/special occasions only Smoking Status Current every day smoker Tobacco type cigarettes Smoking packs per day 1 Substance Use Type does not use Pain Present Pain Reported Musculoskeletal Symptoms Back Pain,Difficulty Walking, Numbness,Radiating Pain into Limb,Tingling History of Falling (Recent or History of No ) Patient is completely paralyzed or No completely immobile Prosthesis or Orthotic Device Cane Mental Status Oriented to own ability Is patient on oxygen? No Does patient have DIEGO/SOB No Hx Sleep Apnea No CPAP/BIPAP use not prescribed Currently Taking a Beta Fernando No Can You Climb a Flight of Stairs Without Yes: Pt currently walks approx SOB 5,000 steps daily Hx Chest Pain No Hx SOB No Hx Syncope or Dizziness Yes: Syncope while driving r/t difficulty swallowing-license revoked Anti-Coagulant Therapy No Has a International Relations Teacher No Cardiac Testing No Hx Pacemaker/ICD No Pacemaker Rep Required? No Cardiac Clearance Received Not Applicable Diet Type At Home Regular Dysphagia Yes: after cervical fusion, improved with speech therapy Gastrointestinal Symptoms Reflux Bladder Pattern Frequency,Incontinent,Urgency Urinary Catheter Present No Hx Urinary Self Catheterization No Diabetes Yes HgbA1C 7.5 Date 04/21/22 Hx Drug Resistant Organism No Presence of External or Internal Medical Yes: Lumbar/cervical hardware Devices Have you had any close contact with No someone diagnosed with COVID-19? Received a COVID vaccine? Yes Received all doses? Yes Marital Status Lives With spouse Current Living Arrangements Mobile home Support System Spouse Does the Patient Have Assistance After Yes Surgery Patient Discharge Plan Description Return Home Comment Pt not advised on length of stay per surgeon Feels Safe in Current Environment Yes Been Physically Hurt or Threatened By a No Person in Current Environment Do you have thoughts of harming yourself None or others? Are you currently considering suicide? No Do you have a plan to hurt yourself or No Plan others? Do You Have Any Spiritual Beliefs That No May Affect Your HC Choices? Do You Have Any Cultural Practices That No May Affect Your HC Choices? Who Can We Speak to About Patient's Care Family, friends Identifying Code for Release of Patient Declines to issue Information Health Care Proxy/Next of Kin Gloria () Health Care Proxy Emergency Contact Name Gloria () Emergency Contact Advance Directives? No Power of Physician President No PAC Instructions Diabetes instructions,Durable medical equipment,Medications to take/avoid,Nasal antibiotic ,No ETOH/petroleum product on skin DOS,NPO,Pre-surgical wash ,Sensory aids,Sturdy shoes/ comfortable clothes,Do not bring valuables and remove jewelry
--- NOTE | 2022-05-06 12:19 | PC.NURSE ---
Addendum entered by Vincent Olivares R.N. 05/06/22 13:01: Escorted out by FREELANCE ART DIRECTOR via wheelchair to discharge to home with his . Original Note: Discharge instructions reviewed with patient and his . They state understanding and have no further question or concerns at this time. Dressing is CDI on back. Patient seen by P.T. and O.T. and cleared for discharge to home. Follow up appointment as scheduled. Prescriptions were sent in electronically by
== END 2022-05-06 13:02 | disposition home or self-care (01) | DRG 460 ==
PROVIDERS: Admitting Provider Orthopaedic Surgery Orthopaedic Surgery of the Spine; Family Provider Internal Medicine; PCP Nurse Practitioner Family; Referring Provider Orthopaedic Surgery Orthopaedic Surgery of the Spine; Visit Provider Orthopaedic Surgery Orthopaedic Surgery of the Spine
PROC: 0SG0071 Fusion of Lumbar Vertebral Joint with Autologous Tissue Substitute, Posterior Approach, Posterior Column, Open Approach (ICD-10-PCS; principal; 2022-05-05 14:15)
DX: T84.038A Mechanical loosening of other internal prosthetic joint, initial encounter (principal); M96.0 Pseudarthrosis after fusion or arthrodesis; M48.062 Spinal stenosis, lumbar region with neurogenic claudication; M47.816 Spondylosis without myelopathy or radiculopathy, lumbar region; T84.216A Breakdown (mechanical) of internal fixation device of vertebrae, initial encounter; M96.1 Postlaminectomy syndrome, not elsewhere classified; E11.9 Type 2 diabetes mellitus without complications; J44.9 Chronic obstructive pulmonary disease, unspecified; K21.9 Gastro-esophageal reflux disease without esophagitis; E03.9 Hypothyroidism, unspecified; I10 Essential (primary) hypertension; G25.81 Restless legs syndrome; F17.200 Nicotine dependence, unspecified, uncomplicated; Z79.84 Long term (current) use of oral hypoglycemic drugs; Z20.822 Contact with and (suspected) exposure to COVID-19; Z79.4 Long term (current) use of insulin
CPT/HCPCS: 72100; 76000; 82962; 87635; 94640; 97161; 97165; 97530; 97535; C9803; C1713; C9290; J1100; J2405; J7613

== ENCOUNTER → 2023-01-16 14:52 | Outpatient (CLI) | payer MEDICARE, OTHER, SELFPAY ==
[2022-05-05 13:01] VITALS: BMI 24.4
--- NOTE | 2023-01-16 | DI.MRI.S_ITS ---
PROCEDURE: MR CERVICAL SPINE WO CON INDICATIONS: Spinal stenosis, cervical region TECHNIQUE: Noncontrast sagittal T1 spin echo and T2 fast spin echo, sagittal STIR, foraminal oblique sagittal T2 fast spin echo, and axial gradient echo or T2 fast spin echo through the cervical spine. COMPARISON: [facility], MR, C-SPINE WITHOUT CONTRAST, 02/23/2016, 9:46. [facility], CR, XR CERVICAL SPINE FLEXION EXTENSION 3 VIEWS, 11/25/2022, 16:29. FINDINGS: Image quality: This examination is limited by involuntary motion artifact. There is artifact associated with the metallic hardware. Alignment and Curvature: There is minimal anterolisthesis seen at C3-C4. Bone Marrow: Marrow demonstrates normal overall signal. Spinal Cord: Visualized spinal cord has normal size and signal. No cerebellar tonsillar herniation. Paraspinous Soft Tissues: No paravertebral masses. Prevertebral soft tissues are normal in thickness. Anterior fixation hardware can be seen C4 through C6. Disc spacers are seen at C4-C5 and C5-C6. C2-C3: Normal appearance. C3-C4: Mild loss of disc height is seen. Loss of disc signal is seen. Moderate generalized disc osteophyte complex is seen. The there is a central disc osteophyte protrusion. There is at least moderate right-sided and mild left-sided facet hypertrophy. There is moderate to severe right-sided and at least moderate left-sided neural foraminal narrowing. Moderate central canal narrowing is seen. There is associated mass effect upon the ventral spinal cord. These imaging findings have progressed compared to the prior study. C4-C5: [id number] disc osteophyte complex is seen, which is eccentric to the left. Moderate facet joint hypertrophy is seen. There is at least moderate left-sided and mild right-sided neural foraminal narrowing. Minimal central canal narrowing is seen. This level is overall improved compared to the preoperative MRI. C5-C6: Moderate generalized disc osteophyte complex is seen. Moderate disc osteophyte complex is seen, which is eccentric to the left. Mild facet joint hypertrophy is seen. There is at least moderate bilateral neural foraminal narrowing seen. Moderate central canal narrowing is seen. This level is improved compared to the 2016 preoperative MRI. C6-C7: Moderate loss of disc height is seen. Loss of disc signal is seen. Moderate generalized disc osteophyte complex is seen. Moderate facet joint hypertrophy is seen. There is moderate to severe bilateral neural foraminal narrowing seen, right worse than left. Mild to moderate central canal narrowing is seen. These imaging findings have progressed compared to the prior study. C7-T1: Normal appearance. IMPRESSION: Since the prior MRI, there has been anterior fixation placed at C4 through C6. There is improvement in the degrees of degenerative narrowing at C4-C5 and C5-C6. There is interval progression of degenerative change at C3-C4 and C6-C7. Dictated by: Juan Coronel M.D. on 01/16/2023 at 15:48 Approved by: Juan Coronel M.D. on 01/16/2023 at 15:52
== END ==
PROVIDERS: Family Provider Internal Medicine; PCP Nurse Practitioner Family; Referring Provider Orthopaedic Surgery Orthopaedic Surgery of the Spine; Visit Provider Orthopaedic Surgery Orthopaedic Surgery of the Spine
DX: M48.02 Spinal stenosis, cervical region (principal)
CPT/HCPCS: 72141

== ENCOUNTER 2024-12-29 14:45 | Emergency (ER) | payer MEDICARE, OTHER, SELFPAY ==
[2022-05-05 13:01] VITALS: BMI 24.4
[2024-12-29 14:52] VITALS: BP 137/77; PULSE 93; RESP 20; TEMP 36.3; O2SAT 97; BMI 23.6
--- NOTE | 2024-12-29 15:20 | ED_ITS ---
<Statement entered by Victoriano Prescott, DO - 12/29/24 18:22> Co-sign statement: I was available for consultation during this patient's emergency department visit. This chart is being signed by myself for administrative purposes only. I do not have direct contact with this patient during this visit. They were seen independently by the APC. HPI - Back Pain/Injury General Chief Complaint: Back Pain/Injury Stated Complaint: lower back / right knee pain x 3 weeks Time Seen by Provider: 12/29/24 15:10 History of Present Illness HPI Narrative: Mr. Ruano is a pleasant 79-year-old male with a past medical history of multiple orthopedic problems, 6 prior lumbar surgeries, right knee surgery, TBIs, childhood polio, CVA, diabetes, COPD who presents to the emergency department for acute on chronic low back and right knee pain x3 weeks. Patient states he had his most recent low back surgery about 3 years ago for a broken shanelle. Three weeks ago he started developing mid lumbar pain radiating to the right hip and right knee that felt very similar to prior pain when he had a broken shanelle. There was no trauma, fall or lifting injury that he recalls that causes pain. He also notes that the right knee, on the anterior aspect, has been bothering him significantly with for the last 3 weeks and he also had surgery on this in the past but with no hardware. Denies fall, bowel or bladder incontinence, saddle anesthesia, fevers, chills, chest pain, shortness of breath, abdominal pain. Denies dysuria but does report urinary frequency. States that when he uses his lumbar brace and knee brace the symptoms improve after a few days but they return immediately upon removal of the braces. Related Data Home Medications ?Medication ?Instructions ?Recorded ?Confirmed albuterol sulfate 90 mcg/actuation 2 puff INH BID PRN Shortness Of 05/02/16 05/05/22 aerosol inhaler (Ventolin HFA) Breath ##0 insulin detemir U-100 100 unit/mL 38 unit SQ HS ##0 05/05/22 (3 mL) subcutaneous pen (Levemir FlexTouch U-100 Insulin) calcium carb,cit-mag cit,ox-D3 1 tab PO QDAY ##0 05/0605/05/22 omeprazole 20 mg capsule,delayed 40 mg PO QDAY ##0 05/05/22 release levothyroxine 150 mcg tablet 125 mcg PO DAILY 10/27/17 05/05/22 losartan 50 mg tablet 25 mg PO DAILY 10/27/1704/14 ropinirole 0.25 mg tablet 0.5 mg PO BEDTIME restless l eg 10/27/17 05/05/22 syndrome fluoxetine 40 mg capsule 20 mg PO DAILY 11/16/1904/14 empagliflozin 25 mg tablet 12.5 mg PO QAM 05/02/22 fluticasone 250 mcg-salmeterol 50 1 inh inhalation BID 05/02/22 05/05/22 mcg/dose blistr powdr for inhalation (Wixela Inhub) naproxen sodium 220 mg capsule 220 mg PO BEDTIME PRN P ain 05/02/22 05/05/22 (Aleve) tamsulosin 0.4 mg capsule 0.4 mg PO BEDTIME 05/02/22 0 05/05/22 Previous Rx's ?Medication ?Instructions ?Recorded cyclobenzaprine 10 mg tablet 10 mg PO TID PRN muscle s pasm #14 04/12/22 tabs acetaminophen 325 mg tablet 650 mg (2 x 325 mg) PO Q6H R PRN 05/06/22 Pain, Mild (1-3) #60 tabs cyclobenzaprine 10 mg tablet 10 mg PO TID PRN muscle s pasm #36 05/06/22 tabs hydrocodone 5 mg-acetaminophen 325 1 tab PO Q4-6H PRN pain #12 tabs 12/29/24 mg tablet Allergies Allergy/AdvReac Type Severity Reaction Status Date / Time oxytetracycline (From Allergy Severe SWELLLING, Verified 04/12/22 14:48 TERRAMYCIN) COULDN'T BREATHE, HOSPITALIZED Penicillins (PENICILLINS) Allergy Severe SWELLING, Verified 04/12/22 14:48 COULDN'T BREATHE, HOSPITALIZED Cholinesterase Allergy Unknown STATES Verified 04/12/22 14:48 Inhibitor(Carbamate) THAT HE (CHOLINESTERASE HAS A INHIBITOR(CARBAMATE)) CHOLINESTERASE DEFICIENCY Review of Systems Review of Systems ROS Unobtainable: All systems reviewed & are unremarkable except as noted in HPI and below Patient History Medical History Episode of syncope (04/19/20) Pseudocholinesterase deficiency PTSD (post-traumatic stress disorder) GERD (gastroesophageal reflux disease) Current every day smoker COPD (chronic obstructive pulmonary disease) Insomnia SOBOBA (hard of hearing) Melgoza's palsy Coma Peripheral neuropathy Coma RLS (restless legs syndrome) Polio RBBB (right bundle branch block) Diabetes Hypertension Hypothyroid Cervical stenosis of spinal canal Stable angina Surgical History History of lumbar spinal fusion (11/23/19) History of vasectomy Hx of lumbosacral spine surgery Hx of bilateral cataract extraction Hx of arthroscopy of right knee Hx of fusion of cervical spine History of repair of left rotator cuff History of repair of right rotator cuff History of lumbar fusion (2016) Family History Mother Metastatic cancer Father Cancer Brother Type 1 diabetes Social History household members: spouse alcohol intake: current tobacco type: cigarettes alcohol intake frequency: holidays/special occasions only Exam Narrative Exam Narrative: GENERAL: 79 year old patient appears stated age. Well-developed patient, in no acute distress. HEAD: Atraumatic. Normocephalic. EYES: No scleral icterus. No injection or drainage. NECK: Trachea midline. Cervical ROM intact. CARDIOVASCULAR: Regular rate RESPIRATORY: ?Nonlabored respirations. ?Speaking in clear, full sentences. ? GASTROINTESTINAL: Abdomen soft, non-tender, nondistended. EXTREMITIES: 2+ palpable BL DP pulses, feet are warm and well perfused. R knee brace removed, palpable crepitus with flex/ext no deformities, erythema, edema or increased warmth. BACK: Prior lumbar paraspinal surgical scars. No reproducible midline tenderness however patient's pain is midline. No edema visible deformities, bruising or erythema. NEURO: AOx3. ?Clear speech. ?5/5 bilateral plantar and dorsiflexion strength, sensation reported decreased on bilateral feet but equal and chronic and unchanged. Sensation intact to light touch in the groin. SKIN: No rash or erythema of visible areas Initial Vital Signs Initial Vital Signs: Vital Signs Temperature 97.4 F L 12/29/24 14:52 Pulse Rate 93 H 12/29/24 14:52 Respiratory Rate 20 12/29/24 14:52 Blood Pressure 137/77 12/29/24 14:52 Pulse Oximetry 97 12/29/24 14:52 Oxygen Delivery Method Room Air 12/29/24 14:52 Course Orders Ordered: ED Orders 12/29/24 15:41 XR knee RT 3V Stat XR lumbar spine 2-3V Stat Discontinued Medications Ketorolac Tromethamine (Ketorolac 30 Mg/Ml Vial) 30 mg IM NOW ONE Stop: 12/29/24 15:42 Last Admin: 12/29/24 15:46 Dose: 30 mg Documented By: STAN Vital Signs Vital signs: Vital Signs - 8 hr 12/29/24 14:52 12/29/24 17:48 Temperature 97.4 F L Pulse Rate 93 H 75 Respiratory Rate 20 16 Blood Pressure 137/77 141/75 H Pulse Oximetry 97 96 Oxygen Delivery Method Room Air Room Air MDM - Back Pain/Injury Medical Records Attestation: I reviewed the patient's medical records. Lab Data Labs: Urine Dip Bedside Urine Glucose 1000 mg/dl Bedside Urine Bilirubin - Negative Bedside Urine Ketone - Negative Urine Specific [place] 1.010 Bedside Urine Occult Blood - Negative Bedside Urine pH 6.0 Bedside Urine Protein - Negative Bedside Urine Urobilinogen +/- 1mg Bedside Urine Nitrite - Negative Bedside Urine Leukocytes - Negative Esterase Imaging Data Lumbar XR: Radiologist's Impression: PROCEDURE: XR LUMBAR SPINE 2-3V INDICATIONS: mid lumbar pain rad to R hip, hx hardware TECHNIQUE: 3 views of the lumbar spine were acquired. COMPARISON: [facility], CR, XR LUMBAR SPINE 2-3V, 05/05/2022, 17:29. [facility], CR, XR LUMBAR SPINE 2-3V, 04/12/2022, 17:52. FINDINGS: Bones: 5 [id number] vertebrae are present. Changes of L3-S1 interbody and posterior instrumented fusion. Chronically retained right S1 pedicle screw. No compression deformity. No acute hardware complication. Moderate degenerative arthrosis of the bilateral sacroiliac joints.. No vertebral body compression fractures. No suspicious bony lesions. Soft tissues: Overlying bowel gas pattern is normal. No suspicious soft tissue calcifications. Vascular calcifications. IMPRESSION: No acute bony abnormality. Dictated by: David Sin M.D. on 12/29/2024 at 16:27 Approved by: David Sin M.D. on 12/29/2024 at 16:28 R Knee XR: Radiologist's Impression: PROCEDURE: XR KNEE RT 3V INDICATIONS: Acute on chronic right knee pain TECHNIQUE: 3 views of the knee were acquired. COMPARISON: None. FINDINGS: Bones: No fractures or dislocations. No suspicious bony lesions. Mild tricompartmental degenerative arthrosis. Soft tissues: No joint effusion. No suspicious soft tissue calcifications. IMPRESSION: No acute bony abnormality or significant effusion. Dictated by: David Sin M.D. on 12/29/2024 at 16:26 Approved by: David Sin M.D. on 12/29/2024 at 16:27 MDM Narrative Medical decision making narrative: 79-year-old male with a past medical history of multiple orthopedic problems, 6 prior lumbar surgeries, right knee surgery, TBIs, childhood polio, CVA, diabetes, COPD who presents to the emergency department for acute on chronic low back and right knee pain x3 weeks. Differential diagnosis includes but isn't limited to acute on chronic pain, lumbar radiculopathy, lumbar spinal stenosis, hardware problem, knee arthritis, UTI, etc. On exam the patient is in no acute distress, nontoxic appearing, vital signs appropriate. Lower extremities are neurovascularly intact, no saddle anesthesia, no bowel or bladder incontinence or retention. Patient does have mid lumbar pain that is not reproducible with palpation but is reproducible with movement. He is also having worsening anterior right knee pain. Given history of prior surgeries with hardware, we will obtain baseline x-ray imaging, we will treat pain with Toradol at this time, we will avoid opiates in the ED as patient will need to drive himself home. Patient's pain has improved significantly after receiving Toradol, he is ambulating independently without assistance. Urinalysis is negative for infection, only reveals glucose which is appropriate as he is taking empagliflozin. Printed and discussed imaging results with the patient which reveal no acute bony abnormality in the lumbar spine, he does have some moderate degenerative arthrosis of the bilateral sacroiliac joints. Knee x-ray also revealed tricompartmental degenerative arthrosis. Patient was very reassured to hear that he does not have any acute hardware problems at this time, he is feeling much better, I recommended that he does follow up with a spine surgeon for further evaluation and that he should 1st follow up with his PCP. Discussed ibuprofen and acetaminophen for pain in addition to gentle movement, wearing his braces, heat therapy and I prescribed him a short course of hydrocodone-acetaminophen as needed for severe breakthrough pain. We will avoid steroids given history of diabetes. Discussed PCP follow up, strict ER return precautions, patient verbalized understanding of all information in his agreeable to the plan, he is ambulatory and stable for discharge home. Discharge Plan Departure Patient Disposition: Home Clinical Impression: Degenerative joint disease of sacroiliac joint, Tricompartment osteoarthritis of right knee Instructions: DI for Low Back Pain Activity Restrictions/Additional Instructions: Dear Mr. Ruano, Thank you for coming to the emergency department. Today you were evaluated for right knee pain and low back pain. Your x-ray results revealed no new problems with your hardware. You do have degenerative changes/arthritis of both of your sacroiliac joints which can cause low back and hip pain. Your knee x-ray also reveal tricompartmental arthritis. I would like you to follow up with an orthopedic doctor for further evaluation. Please continue wearing your braces, rest, use heat therapy, use ibuprofen and Tylenol, and use the strong prescription pain medication, hydrocodone, for breakthrough severe pain. Dr. Dhruv Sanchez is a spine surgeon with [facility], you can call to schedule an appointment [phone]. Please take Ibuprofen (Motrin/Advil) or Acetaminophen (Tylenol) for pain. These are available over the counter. You may take Ibuprofen 600 mg every 8 hours with food for pain. You may also take Acetaminophen 650 mg every 4-6 hours for pain. Do not exceed 3000 mg of Tylenol a day as this can cause liver damage. Do not drink alcohol with either of these medications. Please use RICE therapy for your pain in addition to ibuprofen/acetaminophen. Rest the painful area. Ice the area of pain/swelling for at least 15 minutes, 4x a day. Compress the area of swelling using a brace, wrap, or splint if applied. Elevate the painful or swollen extremity by supporting it above the level of the heart with pillows when sitting or laying. You have been prescribed a short course of narcotic medications. These are potentially dangerous and addictive medications that should be used carefully. While on these medications you cannot drive or operate heavy machinery. Additionally, you cannot sign legal documents or perform any duties such as this. Many people get constipated on narcotic medications so it would be advisable to discuss stool softeners with the pharmacist when you warehouse picker your prescription. Please understand that we cannot provide further refills of narcotics or controlled substances through the ED and your pain management will need to be through your Primary Care Provider Please follow up with your primary care doctor within the next 2-3 days for ER follow-up. (If you do not have a PCP you can call [phone]. ?to schedule an appointment with an [facility] Primary Care Provider) IF YOU DEVELOP ANY NEW OR WORSENING SYMPTOMS, RETURN TO THE ER! Please read the attached instructions, they highlight more specific treatments and interventions for you at home. Thank you for letting me participate in your care, Nicole Varma PA-C Prescriptions: New hydrocodone-acetaminophen 5-325 mg tablet 1 tab PO Q4-6H PRN (Reason: pain) Qty: 12 0RF No Action Levemir FlexTouch U100 Insulin 100 UNIT/1 ML insulin pen 38 unit SQ HS Qty: 0 albuterol sulfate [Ventolin HFA] 90 MCG/PUFF HFA aerosol inhaler 2 puff INH BID PRN (Reason: Shortness Of Breath) Qty: 0 omeprazole 20 MG capsule,delayed release(DR/EC) 40 mg PO QDAY Qty: 0 calcium carb,cit-mag cit,ox-D3 1 tab PO QDAY Qty: 0 levothyroxine 150 mcg tablet 125 mcg PO DAILY losartan 50 mg tablet 25 mg PO DAILY Rx Instructions: took 1/2 tab this AM ropinirole 0.25 mg tablet 0.5 mg PO BEDTIME fluoxetine 40 mg Capsule 20 mg PO DAILY cyclobenzaprine 10 mg tablet 10 mg PO TID PRN (Reason: muscle spasm) Qty: 14 0RF fluticasone propion-salmeterol [Wixela Inhub] 250-50 mcg/dose Blister With Device 1 inh INHALATION BID tamsulosin 0.4 mg Capsule 0.4 mg PO BEDTIME empagliflozin 25 mg Tablet 12.5 mg PO QAM naproxen sodium [Aleve] 220 mg Capsule 220 mg PO BEDTIME PRN (Reason: Pain) cyclobenzaprine 10 mg Tablet 10 mg PO TID PRN (Reason: muscle spasm) Qty: 36 0RF acetaminophen 325 mg Tablet 650 mg PO Q6HR PRN (Reason: Pain, Mild (1-3)) Qty: 60 0RF Referrals: Jenni Ortiz ARNP [Primary Care Provider, Family Practice] Stand Alone Forms: Patient Portal/API
--- NOTE | 2024-12-29 15:41 | DI.RAD.S_ITS ---
PROCEDURE: XR KNEE RT 3V INDICATIONS: Acute on chronic right knee pain TECHNIQUE: 3 views of the knee were acquired. COMPARISON: None. FINDINGS: Bones: No fractures or dislocations. No suspicious bony lesions. Mild tricompartmental degenerative arthrosis. Soft tissues: No joint effusion. No suspicious soft tissue calcifications. IMPRESSION: No acute bony abnormality or significant effusion. Dictated by: David Sin M.D. on 12/29/2024 at 16:26 Approved by: David Sin M.D. on 12/29/2024 at 16:27
--- NOTE | 2024-12-29 15:41 | DI.RAD.S_ITS ---
PROCEDURE: XR LUMBAR SPINE 2-3V INDICATIONS: mid lumbar pain rad to R hip, hx hardware TECHNIQUE: 3 views of the lumbar spine were acquired. COMPARISON: [facility], CR, XR LUMBAR SPINE 2-3V, 05/05/2022, 17:29. [facility], CR, XR LUMBAR SPINE 2-3V, 04/12/2022, 17:52. FINDINGS: Bones: 5 [id number] vertebrae are present. Changes of L3-S1 interbody and posterior instrumented fusion. Chronically retained right S1 pedicle screw. No compression deformity. No acute hardware complication. Moderate degenerative arthrosis of the bilateral sacroiliac joints.. No vertebral body compression fractures. No suspicious bony lesions. Soft tissues: Overlying bowel gas pattern is normal. No suspicious soft tissue calcifications. Vascular calcifications. IMPRESSION: No acute bony abnormality. Dictated by: David Sin M.D. on 12/29/2024 at 16:27 Approved by: David Sin M.D. on 12/29/2024 at 16:28
[2024-12-29] MEDS: KETOROLAC 30 MG/ML VIAL IM (15:46)
[2024-12-29 17:48] VITALS: BP 141/75; PULSE 75; RESP 16; O2SAT 96
== END 2024-12-29 17:49 | disposition home or self-care (01) ==
PROVIDERS: Emergency Provider Physician Assistant; Family Provider Internal Medicine; PCP Nurse Practitioner Family
DX: M46.1 Sacroiliitis, not elsewhere classified (principal); M17.11 Unilateral primary osteoarthritis, right knee; M25.561 Pain in right knee; R35.0 Frequency of micturition
CPT/HCPCS: 72100; 73562; 81003; 96372; 99283; J1885